=== PATIENT | male | born 1945 | race Caucasian/White ===

== ENCOUNTER 2019-04-29 19:35 | Inpatient (IN) | payer MEDICARE, OTHER ==
[~2019-04-29] VITALS: Ht 177.8 cm; Wt 75.0 kg
--- NOTE | 2019-04-29 19:40 | NUR ---
ED Nurse Note: [facility] [address] [facility]. ao1 able to follow commands; spontaneous eye opening. bp 89/65.
[2019-04-29] MEDS ORDERED: Pantoprazole Inj IV ONE (19:45)
--- NOTE | 2019-04-29 19:45 | NUR ---
ED Nurse Note: iv access established. blood and urine collected; sent down to lab.
[2019-04-29] MEDS ORDERED: MYRBETRIQ50 MG PO (19:51)
[2019-04-29] MEDS ORDERED: ACETAMINOPHEN500 M5 ORAL (19:51)
[2019-04-29] MEDS ORDERED: CALCIUM 500+D1 EACH PO (19:51)
[2019-04-29] MEDS ORDERED: VITAMIN D1000 UNI1 ORAL (19:51)
[2019-04-29] MEDS ORDERED: PROSCAR5 MG ORAL (19:51)
[2019-04-29] MEDS ORDERED: [UNRECOGNIZED DRUG - OTHER] PO (19:51)
[2019-04-29] MEDS ORDERED: ATORVASTATIN CA20 MG ORAL (19:51)
[2019-04-29] MEDS ORDERED: ASPIRIN81 MG ORAL (19:51)
[2019-04-29] MEDS ORDERED: POLYETHYLENE GL17 GM ORAL (19:53)
[2019-04-29] MEDS ORDERED: SENNOSIDES8.6 MG ORAL (19:53)
[2019-04-29] MEDS ORDERED: FLOMAX0.4 MG ORAL (19:53)
[2019-04-29] MEDS ORDERED: TUBERSOL5 TUB UNIT ID (19:53)
[2019-04-29] MEDS ORDERED: OMEPRAZOLE20 M2 ORAL (19:53)
[2019-04-29] MEDS ORDERED: Sodium Chloride 2,200 ML IVLG ONE (20:00)
--- NOTE | 2019-04-29 20:00 | NUR ---
ED Nurse Note: CRE VRE MRSA SWAB COLLECTED; SENT DOWN TO LAB. UPON INSPECTION, SKIN INTACT.
[2019-04-29 20:28] LABS: ANION GAP 9 mmol/L (5-15); BLOOD UREA NITROGEN 37 mg/dL (7-18); CALCIUM 8.4 MG/DL (8.5-10.1); CARBON DIOXIDE 29 MMOL/L (21-32); CHLORIDE 105 MMOL/L (98-107); CREATININE 1.5 MG/DL (0.55-1.30); POTASSIUM 4.6 MMOL/L (3.5-5.1); SODIUM 142 MMOL/L (136-145)
[2019-04-29 20:36] LABS: BASOPHILS % (AUTO) 0.5 % (0.0-2.0); EOSINOPHILS % (AUTO) 0.1 % (0.0-3.0); HEMATOCRIT 39.2 % (42.0-52.0); HEMOGLOBIN 12.9 G/DL (14.2-18.0); LYMPHOCYTES % (AUTO) 7.2 % (20.0-45.0); MEAN CORPUSCULAR VOLUME 82 FL (80-99); MONOCYTES % (AUTO) 9.4 % (1.0-10.0); NEUTROPHILS % (AUTO) 82.8 % (45.0-75.0); PLATELET COUNT 238 K/UL (150-450); RED BLOOD COUNT 4.78 M/UL (4.70-6.10); RED CELL DISTRIBUTION WIDTH 12.7 % (11.6-14.8); WHITE BLOOD COUNT 14.7 K/UL (4.8-10.8)
[2019-04-29 20:37] VITALS: BP 108/61
[2019-04-29 20:46] LABS: ALANINE AMINOTRANSFERASE 102 U/L (12-78); ALBUMIN 1.6 G/DL (3.4-5.0); ALBUMIN/GLOBULIN RATIO 0.4 (1.0-2.7); ALKALINE PHOSPHATASE 1628 U/L (46-116); ASPARTATE AMINO TRANSFERASE 291 U/L (15-37); BILIRUBIN,TOTAL 1.9 MG/DL (0.2-1.0)
[2019-04-29 20:47] LABS: BILIRUBIN,DIRECT 1.4 MG/DL (0.0-0.3)
[2019-04-29 20:54] VITALS: BP 104/70
--- NOTE | 2019-04-29 20:54 | NUR ---
ED Nurse Note: animal care supervisor at bedside. bp maintaining at 104/70 with 2L fluids.
--- NOTE | 2019-04-29 21:00 | NUR ---
ED Nurse Note: LACTIC REFLEX COLLECTED; SENT DOWN TO LAB
[2019-04-29] MEDS ORDERED: Morphine Sulfate 2mg/ml Inj(IV/IM USE ONLY) IVP PRN (21:15)
[2019-04-29] MEDS ORDERED: Nitroglycerin Subl 0.4mg tab SL PRN (21:15)
[2019-04-29 21:19] LABS: APPEARANCE,URINE CLEAR; BILIRUBIN, URINE 1+ (NEGATIVE); COLOR,URINE BROWN; GLUCOSE, URINE (UA) NEGATIVE (NEGATIVE); KETONES,URINE NEGATIVE (NEGATIVE); LEUKOCYTE ESTERASE ,URINE 1+ (NEGATIVE); NITRITE,URINE NEGATIVE (NEGATIVE); PH,URINE 5 (4.5-8.0); PROTEIN,URINE 1+ (NEGATIVE); UROBILINOGEN,URINE 4 MG/DL (0.0-1.0)
--- NOTE | 2019-04-29 21:22 | Emergency Room Report ---
History of Present Illness General Chief Complaint: General Complaint Source: Patient, Caregiver Present Illness HPI 74-year-old male presents ED for evaluation. Patient brought in by EMS from [facility] facility. Had 3 episodes of coffee-ground emesis today. Hypotensive as per EMS. Patient states he feels very weak. Recently discharged from the [facility] to this facility. Denies fevers or chills. Denies chest pain or shortness of breath. Denies any abdominal pain. Denies blood in stool. No other aggravating relieving factors. Denies any other associated symptoms Allergies: Coded Allergies: BENAZEPRIL (Verified Allergy, Unknown, 04/29/19) PENICILLINS (Verified Allergy, Unknown, 04/29/19) TERAZOSIN (Verified Allergy, Unknown, 04/29/19) Patient History Past Medical History: HTN Past Surgical History: none Pertinent Family History: none Social History: Denies: smoking, alcohol use, drug use Immunizations: UTD Reviewed Nursing Documentation: PMH: Agreed; PSxH: Agreed Nursing Documentation-PMH Past Medical History: No History, Except For Hx Hypertension: Yes Review of Systems All Other Systems: negative except mentioned in HPI Physical Exam Vital Signs Date Time Temp Pulse Resp B/P (MAP) Pulse Ox O2 Delivery O2 Flow Rate FiO2 04/29/19 19:30 94 17 108/61 (77) 98 Room Air Sp02 EP Interpretation: reviewed, normal General Appearance: no apparent distress, alert, GCS 15, non-toxic, lethargic, thin Head: normocephalic, atraumatic Eyes: bilateral eye normal inspection, bilateral eye PERRL ENT: hearing grossly normal, normal pharynx, no angioedema, normal voice Neck: full range of motion, supple/symm/no masses Respiratory: chest non-tender, lungs clear, normal breath sounds, speaking full sentences Cardiovascular #1: regular rate, rhythm, no edema Cardiovascular #2: 2+ carotid (R), 2+ carotid (L), 2+ radial (R), 2+ radial (L) , 2+ dorsalis pedis (R), 2+ dorsalis pedis (L) Gastrointestinal: normal bowel sounds, non tender, soft, non-distended, no guarding, no rebound Rectal: deferred Genitourinary: normal inspection, no CVA tenderness Musculoskeletal: back normal, gait/station normal, normal range of motion, non- tender Neurologic: other - lethargic Psychiatric: judgement/insight normal, memory normal, mood/affect normal, no suicidal/homicidal ideation Reflexes: 3+ bicep (R), 3+ bicep (L), 3+ tricep (R), 3+ tricep (L), 3+ knee (R) , 3+ knee (L) Skin: other - see nursing notes Lymphatic: no adenopathy Procedures Critical Care Time Critical Care Time i. I feel this is a highly complex case requiring extensive working including EKG/Rhythm strip, Xray/CT/US, Blood/urine lab work, repeat exams while in ED, and administration of strong opiates/narcotics for pain control, admission to hospital or close patient follow up. Total time: 60 min bedside evaluation and treatment excludes procedures (EKG). Reason for critical care: failure to thrive, UGIB, dehydration, hypotension, sepsis, Possible complications: hypotension, hypertension, NH, shock, arrhythmias, metabolic acidosis, end organ damage, respiratory failure. Interventions: Labs, IV fluids, EKG, chest x-ray. Blood cultures. Lactic acid. 30 cc/kg fluid bolus. Trendelenburg. Additional fluid bolusing. Neuro reevaluation. Broad-spectrum antibiotics. Course: Presenting from [facility] facility with coffee-ground emesis. Hypotension in triage. Patient appears cachectic and weak. IV fluid boluses started. There is noted leukocytosis. BUN/creatinine elevated. LFTs markedly elevated. Abdomen is soft. Lactic greater than 2. Concerning for pneumonia on chest x-ray. Has UTI. Given 30 cc/kg fluid bolus. BP slowly improving. Given additional fluids. BP improving on Trendelenburg. Patient's neuro assessment becoming improved. Given broad-spectrum antibiotics. Consultations: nursing staff, EMS, family Performed by: Dr Arechiga Tolerated well condition = critical j. because of unstable vital signs this patient had a condition that could potentially threaten life or limb. I feel this is a critical patient who required my full attention while patient was considered critical. Total Critical Care Time excluding procedures was greater than 60 minutes Medical Decision Making Diagnostic Impression: Primary Impression: UGIB (upper gastrointestinal bleed) Additional Impressions: Chronic renal insufficiency Qualified Codes: N18.9 - Chronic kidney disease, unspecified Elevated LFTs LLL pneumonia Qualified Codes: J18.1 - Lobar pneumonia, unspecified organism UTI (urinary tract infection) Qualified Codes: N39.0 - Urinary tract infection, site not specified Sepsis Qualified Codes: A41.9 - Sepsis, unspecified organism ER Course Hospital Course 74 yo M presents with coffee ground emesis, hypotension Differential diagnoses include: Pneumonia, UTI, sepsis, dehydration, UGIB Clinical course Patient placed on stretcher. On bus driver/monitor with hypotension. After initial history and physical, I ordered labs, IV fluids, EKG, chest x-ray, blood cultures, UA. Labs - BUN/Cr elevated, noted leukocytosis, troponins negative, LFTs grossly elevated, lactic 2.9, UA grossly positive for UTI EKG - NSR, no acute ischemic changes inteprreted bym e CXR - LLL infiltrate Abx given. 80 cc/kg fluid bolus. BP slowly improving with IV fluids in Trendelenburg. Patient given additional fluids. Mental status improving after IV hydration. Patient has no abdominal pain. Case discussed with Dr Duenas/Lito and they agreed to admit patient to their service for further care and support I feel this is a highly complex case requiring extensive working including EKG/ Rhythm strip, Xray/CT/US, Blood/urine lab work, repeat exams while in ED, and administration of strong opiates/narcotics for pain control, admission to hospital or close patient follow up. Diagnosis - sepsis, UGIB, renal insufficiency, elevated LFTs, left lower lobe pneumonia, UTI Patient admitted to SDU in critical condition Labs Test 04/29/19 19:45 04/29/19 19:55 04/29/19 20:45 04/29/19 21:10 Lactic Acid Level 2.90 mmol/L (0.4-2.0) White Blood Count 14.7 K/UL (4.8-10.8) Red Blood Count 4.78 M/UL (4.70-6.10) Hemoglobin 12.9 G/DL (14.2-18.0) Hematocrit 39.2 % (42.0-52.0) Mean Corpuscular Volume 82 FL (80-99) Mean Corpuscular Hemoglobin 26.9 PG (27.0-31.0) Mean Corpuscular Hemoglobin Concent 32.9 G/DL (32.0-36.0) Red Cell Distribution Width 12.7 % (11.6-14.8) Platelet Count 238 K/UL (150-450) Mean Platelet Volume 6.6 FL (6.5-10.1) Neutrophils (%) (Auto) 82.8 % (45.0-75.0) Lymphocytes (%) (Auto) 7.2 % (20.0-45.0) Monocytes (%) (Auto) 9.4 % (1.0-10.0) Eosinophils (%) (Auto) 0.1 % (0.0-3.0) Basophils (%) (Auto) 0.5 % (0.0-2.0) Prothrombin Time 10.9 SEC (9.30-11.50) Prothromb Time International Ratio 1.0 (0.9-1.1) Activated Partial Thromboplast Time 29 SEC (23-33) Sodium Level 142 MMOL/L (136-145) Potassium Level 4.6 MMOL/L (3.5-5.1) Chloride Level 105 MMOL/L (98-107) Carbon Dioxide Level 29 MMOL/L (21-32) Anion Gap 9 mmol/L (5-15) Blood Urea Nitrogen 37 mg/dL (7-18) Creatinine 1.5 MG/DL (0.55-1.30) Estimat Glomerular Filtration Rate mL/min (>60) Glucose Level 118 MG/DL (74-106) Calcium Level 8.4 MG/DL (8.5-10.1) Total Bilirubin 1.9 MG/DL (0.2-1.0) Direct Bilirubin 1.4 MG/DL (0.0-0.3) Aspartate Amino Transf (AST/SGOT) 291 U/L (15-37) Alanine Aminotransferase (ALT/SGPT) 102 U/L (12-78) Alkaline Phosphatase 1628 U/L (46-116) Troponin I 0.001 ng/mL (0.000-0.056) Total Protein 5.4 G/DL (6.4-8.2) Albumin 1.6 G/DL (3.4-5.0) Globulin 3.8 g/dL Albumin/Globulin Ratio 0.4 (1.0-2.7) Lipase 178 U/L (73-393) EKG Diagnostic Results Rate: normal Rhythm: NSR ST Segments: no acute changes ASA given to the pt in ED: No Rhythm Strip Diag. Results EP Interpretation: yes Rhythm: NSR, no PVC's, no ectopy Chest X-Ray Diagnostic Results Chest X-Ray Diagnostic Results : Chest X-Ray Ordered: Yes # of Views/Limited/Complete: 1 View Indication: Other EP Interpretation: Yes Interpretation: no pneumothorax, other - consolidation LLL Impression: Other - pneumonia Electronically Signed by: Electronically signed by Carlos Enrique Arechiga MD Last Vital Signs Date Time Temp Pulse Resp B/P (MAP) Pulse Ox O2 Delivery O2 Flow Rate FiO2 04/29/19 20:54 94 17 104/70 98 Room Air Status: improved Disposition: ADMITTED INPATIENT Condition: Critical Referrals: NON PHYSICIAN (PCP) Carlos Enrique Arechiga MD Apr 29, 2019 21:22
--- NOTE | 2019-04-29 22:00 | NUR ---
TRANSFER TO FLOOR: Patient transferred to SDU 245-2 as ordered, per GARCÍA KNOTT. Report given to ELSA LIZ. PATIENT BELONGINGS COMPLETED WITH RECEIVING RN. ACCOMPANIED BY CAREGIVER.
[2019-04-29] MEDS: D5NS 1,000 ML IV SCH (22:27)
--- NOTE | 2019-04-29 22:30 | NUR ---
NURSE NOTES: Admitted a 74year old male from ER for Upper GI bleed. Patient was accompanied by caregiver/girlfriend. Patient was alert and oriented times 3, with no complaints of pain or discomfort. Patient able to make needs known, no signs of bleeding noted, H&H stable. Admission assessment to be done. Will continue to monitor.
[2019-04-29 23:11] LABS: CREATINE KINASE 768 U/L (26-308)
[2019-04-30] MEDS ORDERED: [UNRECOGNIZED DRUG - OTHER] (03:43)
[2019-04-30] MEDS ORDERED: mesalamine (03:43)
[2019-04-30 05:20] LABS: BASOPHILS % (AUTO) 0.2 % (0.0-2.0); EOSINOPHILS % (AUTO) 0.2 % (0.0-3.0); HEMATOCRIT 41.2 % (42.0-52.0); HEMOGLOBIN 13.4 G/DL (14.2-18.0); LYMPHOCYTES % (AUTO) 7.9 % (20.0-45.0); MEAN CORPUSCULAR VOLUME 82 FL (80-99); MONOCYTES % (AUTO) 9.6 % (1.0-10.0); NEUTROPHILS % (AUTO) 82.1 % (45.0-75.0); PLATELET COUNT 265 K/UL (150-450); RED BLOOD COUNT 5.04 M/UL (4.70-6.10); RED CELL DISTRIBUTION WIDTH 13.6 % (11.6-14.8)
[2019-04-30 05:32] LABS: INR 1.2 (0.9-1.1)
[2019-04-30 06:25] LABS: ALANINE AMINOTRANSFERASE 102 U/L (12-78); ALBUMIN 1.6 G/DL (3.4-5.0); ALBUMIN/GLOBULIN RATIO 0.5 (1.0-2.7); ALKALINE PHOSPHATASE 1641 U/L (46-116); AMYLASE 36 U/L (25-115); ANION GAP 10 mmol/L (5-15); ASPARTATE AMINO TRANSFERASE 301 U/L (15-37); BILIRUBIN,TOTAL 1.8 MG/DL (0.2-1.0); BLOOD UREA NITROGEN 38 mg/dL (7-18); CALCIUM 8.2 MG/DL (8.5-10.1); CARBON DIOXIDE 26 MMOL/L (21-32); CHLORIDE 107 MMOL/L (98-107); CREATININE 1.5 MG/DL (0.55-1.30); POTASSIUM 4.9 MMOL/L (3.5-5.1); SODIUM 143 MMOL/L (136-145)
[2019-04-30 06:28] LABS: BILIRUBIN,DIRECT 1.2 MG/DL (0.0-0.3)
[2019-04-30] MEDS: D5NS 1,000 ML IV SCH ×2 (07:37→22:44)
--- NOTE | 2019-04-30 07:41 | NUR ---
HAND-OFF: Report given to ELSA Jean. Patient stable at Hand-off.
--- NOTE | 2019-04-30 07:42 | NUR ---
NURSE NOTES: Received patient in bed. Asleep. In no apparent distress. On nasal cannula at 2L. Bed in lowest position, bed alarm on. Call light within reach. [employer] cellphone and network cable installer noted at bedside. Intravenous Fluid of D5NS running at 100/ml.
[2019-04-30 08:00] VITALS: BP 130/63
[2019-04-30] MEDS ORDERED: Tamsulosin 0.4mg cap ORAL SCH (09:00)
--- NOTE | 2019-04-30 10:27 | GI Initial Consult Note ---
History of Present Illness General Date patient seen: Apr 30, 2019 Time patient seen: 10:20 Reason for Hospitalization: General Complaint Referring physician: BETINA MARIANO Present Illness HPI 74-year-old male presents ED for evaluation. Patient brought in by EMS from longterm facility. Had 3 episodes of coffee-ground emesis today. Hypotensive as per EMS. Patient states he feels very weak. Recently discharged from the [facility] to this facility. Denies fevers or chills. Denies chest pain or shortness of breath. Denies any abdominal pain. Denies blood in stool. No other aggravating relieving factors. Denies any other associated symptoms. GI consulted for reported. ROS limited, patient seen, awake alert no apparent distress no active signs symptoms of nausea vomiting. Patient is unable to provide any significant history. No reports in the emergency room or admission on floor of any episodes of coffee-ground or hematemesis. Laboratory reviewed, patient presents today with WBC of 15.0, hemoglobin of 13.4, hematocrit of 41.2 , platelet count 265, AST of 301, ALT of 102, alkaline phosphatase of 1641, total bilirubin 1.8, lipase of 203. Unknown history of endoscopic or colonoscopy. Home Meds Reported Medications [mesalamine] No Conflict Check 04/30/19 [mesal] No Conflict Check 04/30/19 Tuberculin,Purif.prot.deriv. (TUBERSOL) 5 Tub Unit/0.1 Ml Vial, 5 TUB ID, VIAL 04/29/19 Tamsulosin HCl (Flomax) 0.4 Mg Cap.er.24h, 0.4 MG ORAL DAILY, CAP 04/29/19 Sennosides* (SENNOSIDES*) 8.6 Mg Tablet, 8.6 MG ORAL DAILY, TAB 04/29/19 Polyethylene Glycol 3350* (POLYETHYLENE GLYCOL 3350*) 17 Gm Powd.pack, 17 GM ORAL BEDTIME PRN for Constipation, PACKET 04/29/19 Omeprazole (OMEPRAZOLE) 20 Mg Capsule.dr, 20 MG ORAL DAILY, CAP 04/29/19 Multivit-Min/Ferrous Sulfate (Multilex Tablet) 15 Mg Tablet, 15 MG PO, TAB 04/29/19 Mirabegron (MYRBETRIQ) 50 Mg Tab.er.24h, 50 MG PO, TAB 04/29/19 Finasteride* (PROSCAR*) 5 Mg Tablet, 5 MG ORAL DAILY, #30 TAB 0 Refills 04/29/19 Cholecalciferol (Vitamin D3)* (VITAMIN D*) 1,000 Unit Tablet, 2000 UNITS ORAL DAILY, #30 TAB 0 Refills 04/29/19 Calcium Carbonate/Vitamin D3 (CALCIUM 500+D TABLET CHEW) 1 Each Tab.chew, 1 EACH PO, TAB 04/29/19 Atorvastatin Calcium* (ATORVASTATIN CALCIUM*) 20 Mg Tablet, 20 MG ORAL BEDTIME, TAB 04/29/19 Aspirin* (ASPIRIN*) 81 Mg Tab.chew, 81 MG ORAL DAILY, TAB 04/29/19 Acetaminophen (Acetaminophen) 500 Mg Tablet, 500 MG ORAL Q4H for PAIN, TAB 04/29/19 Med list reviewed/reconciled: Yes Allergies: Coded Allergies: BENAZEPRIL (Verified Allergy, Unknown, 04/29/19) PENICILLINS (Verified Allergy, Unknown, 04/29/19) TERAZOSIN (Verified Allergy, Unknown, 04/29/19) Patient History Limited by: medical condition History Provided By: Medical Record PMH Narrative Past Medical History: HTN Past Surgical History: none Pertinent Family History: none Social History: Denies: smoking, alcohol use, drug use Immunizations: UTD Reviewed Nursing Documentation: PMH: Agreed; PSxH: Agreed Nursing Documentation-PMH Past Medical History: No History, Except For Hx Hypertension: Yes Review of Systems All Other Systems: negative except mentioned in HPI Physical Exam Vital Signs Date Time Temp Pulse Resp B/P (MAP) Pulse Ox O2 Delivery O2 Flow Rate FiO2 04/29/19 19:30 94 17 108/61 (77) 98 Room Air 04/29/19 22:11 98.5 04/29/19 22:29 2.0 Sp02 EP Interpretation: reviewed, normal Labs Laboratory Tests Test 04/29/19 19:45 04/29/19 19:55 04/29/19 20:00 04/29/19 20:45 Lactic Acid Level 2.90 mmol/L (0.4-2.0) H White Blood Count 14.7 K/UL (4.8-10.8) H Red Blood Count 4.78 M/UL (4.70-6.10) Hemoglobin 12.9 G/DL (14.2-18.0) L Hematocrit 39.2 % (42.0-52.0) L Mean Corpuscular Volume 82 FL (80-99) Mean Corpuscular Hemoglobin 26.9 PG (27.0-31.0) L Mean Corpuscular Hemoglobin Concent 32.9 G/DL (32.0-36.0) Red Cell Distribution Width 12.7 % (11.6-14.8) Platelet Count 238 K/UL (150-450) Mean Platelet Volume 6.6 FL (6.5-10.1) Neutrophils (%) (Auto) 82.8 % (45.0-75.0) H Lymphocytes (%) (Auto) 7.2 % (20.0-45.0) L Monocytes (%) (Auto) 9.4 % (1.0-10.0) Eosinophils (%) (Auto) 0.1 % (0.0-3.0) Basophils (%) (Auto) 0.5 % (0.0-2.0) Prothrombin Time 10.9 SEC (9.30-11.50) Prothromb Time International Ratio 1.0 (0.9-1.1) Activated Partial Thromboplast Time 29 SEC (23-33) Sodium Level 142 MMOL/L (136-145) Potassium Level 4.6 MMOL/L (3.5-5.1) Chloride Level 105 MMOL/L (98-107) Carbon Dioxide Level 29 MMOL/L (21-32) Anion Gap 9 mmol/L (5-15) Blood Urea Nitrogen 37 mg/dL (7-18) H Creatinine 1.5 MG/DL (0.55-1.30) H Estimat Glomerular Filtration Rate mL/min (>60) Glucose Level 118 MG/DL (74-106) H Uric Acid 8.7 MG/DL (2.6-7.2) H Calcium Level 8.4 MG/DL (8.5-10.1) L Total Bilirubin 1.9 MG/DL (0.2-1.0) H Direct Bilirubin 1.4 MG/DL (0.0-0.3) H Aspartate Amino Transf (AST/SGOT) 291 U/L (15-37) H Alanine Aminotransferase (ALT/SGPT) 102 U/L (12-78) H Alkaline Phosphatase 1628 U/L (46-116) H Total Creatine Kinase 768 U/L (26-308) H Troponin I 0.001 ng/mL (0.000-0.056) Total Protein 5.4 G/DL (6.4-8.2) L Albumin 1.6 G/DL (3.4-5.0) L Globulin 3.8 g/dL Albumin/Globulin Ratio 0.4 (1.0-2.7) L Lipase 178 U/L (73-393) Urine Eosinophils None seen (NONE SEEN) Urine Osmolality 613 mOsm/kg (429-449) H Urine Random Creatinine Pending Urine Random Microalbumin Pending Urine Random Sodium < 20 mmol/L (20-110) L Urine Microalbumin/Creatinine Ratio Pending Urine Color Brown Urine Appearance Clear Urine pH 5 (4.5-8.0) Urine Specific [place] 1.015 (1.005-1.035) Urine Protein 1+ (NEGATIVE) H Urine Glucose (UA) Negative (NEGATIVE) Urine Ketones Negative (NEGATIVE) Urine Blood Negative (NEGATIVE) Urine Nitrite Negative (NEGATIVE) Urine Bilirubin 1+ (NEGATIVE) H Urine Ictotest Positive (NEGATIVE) Urine Urobilinogen 4 MG/DL (0.0-1.0) H Urine Leukocyte Esterase 1+ (NEGATIVE) H Urine RBC 2-4 /HPF (0 - 0) H Urine WBC 5-10 /HPF (0 - 0) H Urine Squamous Epithelial Cells None /LPF (NONE/OCC) Urine Amorphous Sediment Few /LPF (NONE) H Urine Bacteria Moderate /HPF (NONE) H Test 04/29/19 21:10 04/30/19 03:10 04/30/19 09:10 Lactic Acid Level 2.40 mmol/L (0.66-2.22) H 1.70 mmol/L (0.4-2.0) White Blood Count 15.0 K/UL (4.8-10.8) H Red Blood Count 5.04 M/UL (4.70-6.10) Hemoglobin 13.4 G/DL (14.2-18.0) L Hematocrit 41.2 % (42.0-52.0) L Mean Corpuscular Volume 82 FL (80-99) Mean Corpuscular Hemoglobin 26.6 PG (27.0-31.0) L Mean Corpuscular Hemoglobin Concent 32.5 G/DL (32.0-36.0) Red Cell Distribution Width 13.6 % (11.6-14.8) Platelet Count 265 K/UL (150-450) Mean Platelet Volume 6.1 FL (6.5-10.1) L Neutrophils (%) (Auto) 82.1 % (45.0-75.0) H Lymphocytes (%) (Auto) 7.9 % (20.0-45.0) L Monocytes (%) (Auto) 9.6 % (1.0-10.0) Eosinophils (%) (Auto) 0.2 % (0.0-3.0) Basophils (%) (Auto) 0.2 % (0.0-2.0) Prothrombin Time 13.1 SEC (9.30-11.50) H Prothromb Time International Ratio 1.2 (0.9-1.1) H Activated Partial Thromboplast Time 37 SEC (23-33) H Sodium Level 143 MMOL/L (136-145) Potassium Level 4.9 MMOL/L (3.5-5.1) Chloride Level 107 MMOL/L (98-107) Carbon Dioxide Level 26 MMOL/L (21-32) Anion Gap 10 mmol/L (5-15) Blood Urea Nitrogen 38 mg/dL (7-18) H Creatinine 1.5 MG/DL (0.55-1.30) H Estimat Glomerular Filtration Rate mL/min (>60) Glucose Level 118 MG/DL (74-106) H Calcium Level 8.2 MG/DL (8.5-10.1) L Total Bilirubin 1.8 MG/DL (0.2-1.0) H Direct Bilirubin 1.2 MG/DL (0.0-0.3) H Aspartate Amino Transf (AST/SGOT) 301 U/L (15-37) H Alanine Aminotransferase (ALT/SGPT) 102 U/L (12-78) H Alkaline Phosphatase 1641 U/L (46-116) H Total Protein 4.9 G/DL (6.4-8.2) L Albumin 1.6 G/DL (3.4-5.0) L Globulin 3.3 g/dL Albumin/Globulin Ratio 0.5 (1.0-2.7) L Amylase Level 36 U/L (25-115) Lipase 203 U/L (73-393) General Appearance: no apparent distress Head: normocephalic EENT: PERRL/EOMI, normal ENT inspection Neck: supple Respiratory: normal breath sounds, no respiratory distress Cardiovascular: normal rate Gastrointestinal: normal inspection, non tender, soft, normal bowel sounds, non -distended Rectal: deferred Genitourinary: deferred Musculoskeletal: normal inspection, back normal Neurologic: alert, responsive Skin: normal inspection, normal color, no rash, warm/dry, palpation normal, well hydrated Lymphatic: normal inspection, no adenopathy Current Medications Current Medications Medications (Trade) Dose Ordered Sig/Eric Route PRN Reason Start Time Stop Time Status Last Admin Dose Admin Acetaminophen (Tylenol) 650 mg Q4H PRN ORAL fever 04/29/19 21:15 05/29/19 21:14 Dextrose (Dextrose 50%) 25 ml Q30M PRN IV Hypoglycemia 04/29/19 21:15 05/29/19 21:14 Dextrose (Dextrose 50%) 50 ml Q30M PRN IV Hypoglycemia 04/29/19 21:15 05/29/19 21:14 Dextrose/Sodium Chloride 1,000 ml @ 100 mls/hr Q10H IV 04/29/19 22:00 05/29/19 21:59 04/30/19 07:37 Diphenhydramine HCl (Benadryl) 25 mg Q6H PRN ORAL Itching/Pruritis 04/29/19 21:15 05/29/19 21:14 04/30/19 00:48 Finasteride (Proscar) 5 mg DAILY ORAL 04/30/19 09:00 05/30/19 08:59 04/30/19 08:29 Morphine Sulfate (Morphine Sulfate) 2 mg Q4H PRN IVP severe Pain (Pain Scale 7-10) 04/29/19 21:15 05/06/19 21:14 Nitroglycerin (Ntg) 0.4 mg Q5M X 3 DOSES PRN SL Prn Chest Pain 04/29/19 21:15 05/29/19 21:14 Ondansetron HCl (Zofran) 4 mg Q6H PRN IVP Nausea & Vomiting 04/29/19 21:15 05/29/19 21:14 Tamsulosin HCl (Flomax) 0.4 mg DAILY ORAL 04/30/19 09:00 05/30/19 08:59 04/30/19 08:29 Temazepam (Restoril) 15 mg HSPRN PRN ORAL Insomnia 04/29/19 21:15 05/06/19 21:14 04/30/19 00:48 GI: Plan Problems: (1) Coffee ground emesis (2) UGIB (upper gastrointestinal bleed) (3) Elevated LFTs Plan This is a 74-year-old male patient that presented with reported multiple episodes of coffee-ground emesis. Plan for upper endoscopy tomorrow to evaluate. Given elevated LFTs, will obtain MRCP and abdominal ultrasound. We will start the patient on Protonix 40 mg twice daily Monitor hematocrit hemoglobin and hematocrit, PRN transfusions Okay for clear liquid diet after imaging studies, n.p.o. at midnight Hold all blood thinners tonight IV and p.o. hydration We will follow with additional recommendations postprocedure Discussed with Dr. Olsen. Thank you for this patient referral, we will follow. The patient was seen and examined at bedside and all new and available data was reviewed in the patients chart. I agree with the above findings, impression and plan. (Patient seen earlier today. Signature stamp does not reflect patient encounter time.). - MD Luciana Moore,[facility] [employer] Apr 30, 2019 10:27
--- NOTE | 2019-04-30 10:41 | Diagnostic Imaging Report ---
Indication: Cough Comparison: None A single view chest radiograph was obtained. Findings: There is infiltrate versus atelectasis at the left lung base. Lung volumes are slightly low. Heart size is normal. Aorta is ectatic. Bones are osteopenic. IMPRESSION: Infiltrate versus atelectasis left lung base. Correlate clinically
--- NOTE | 2019-04-30 10:55 | Consultation ---
History of Present Illness General Date patient seen: Apr 30, 2019 Chief Complaint: General Complaint Referring physician: BETINA MARIANO Present Illness HPI 74 year old male with hx of Normal pressure hydrocephalus, BPH, HTN, intermediate resident was transferred by 911 with CC of dark emesis. Pt is admitted to [facility] for further evaluation. Allergies: Coded Allergies: BENAZEPRIL (Verified Allergy, Unknown, 04/29/19) PENICILLINS (Verified Allergy, Unknown, 04/29/19) TERAZOSIN (Verified Allergy, Unknown, 04/29/19) Medication History Scheduled Acetaminophen (Acetaminophen), 500 MG ORAL Q4H, (Reported) Aspirin* (Aspirin*), 81 MG ORAL DAILY, (Reported) Atorvastatin Calcium* (Atorvastatin Calcium*), 20 MG ORAL BEDTIME, (Reported) Cholecalciferol (Vitamin D3)* (Vitamin D*), 2,000 UNITS ORAL DAILY, (Reported) Finasteride* (Proscar*), 5 MG ORAL DAILY, (Reported) Omeprazole (Omeprazole), 20 MG ORAL DAILY, (Reported) Sennosides* (Sennosides*), 8.6 MG ORAL DAILY, (Reported) Tamsulosin HCl (Flomax), 0.4 MG ORAL DAILY, (Reported) Scheduled PRN Polyethylene Glycol 3350* (Polyethylene Glycol 3350*), 17 GM ORAL BEDTIME PRN for Constipation, (Reported) Miscellaneous Medications Calcium Carbonate/Vitamin D3 (Calcium 500+D Tablet Chew), 1 EACH PO, (Reported) Mirabegron (Myrbetriq), 50 MG PO, (Reported) Multivit-Min/Ferrous Sulfate (Multilex Tablet), 15 MG PO, (Reported) Tuberculin,Purif.prot.deriv. (Tubersol), 5 TUB ID, (Reported) [mesal], (Reported) [mesalamine], (Reported) Patient History Healthcare decision maker Nithin Sands Resuscitation status Full Code Advanced Directive on File No Past Medical/Surgical History Past Medical/Surgical History: (1) Benign prostatic hyperplasia (2) Chronic renal insufficiency (3) History of hypertension (4) Normal pressure hydrocephalus Review of Systems All Other Systems: negative except mentioned in HPI Physical Exam General Appearance: WD/WN, no apparent distress Lines, tubes and drains: peripheral HEENT: normocephalic, atraumatic Neck: non-tender, normal alignment Respiratory/Chest: chest wall non-tender, normal breath sounds Cardiovascular/Chest: normal peripheral pulses, normal rate Abdomen: normal bowel sounds, non tender, no organomegaly Genitourinary/Rectal: normal rectal exam Extremities: normal range of motion Skin Exam: normal pigmentation Last 24 Hour Vital Signs Date Time Temp Pulse Resp B/P (MAP) Pulse Ox O2 Delivery O2 Flow Rate FiO2 04/30/19 08:12 94 04/30/19 08:00 98.1 94 16 130/63 (85) 98 04/30/19 04:00 2.0 04/30/19 04:00 85 04/30/19 00:00 2.0 04/30/19 00:00 101 04/29/19 22:45 101 04/29/19 22:29 Nasal Cannula 2.0 04/29/19 22:11 98.5 94 17 122/68 98 Room Air 04/29/19 20:54 94 17 104/70 98 Room Air 04/29/19 20:37 94 17 Room Air 04/29/19 20:37 94 17 108/61 98 Room Air 04/29/19 19:30 94 17 108/61 (77) 98 Room Air Intake and Output 04/29/19 04/30/19 18:59 06:59 Intake Total 800 ml Balance 800 ml Intake IV Total 800 ml # Voids 1 # Bowel Movements 1 Laboratory Tests Test 04/29/19 19:45 04/29/19 19:55 04/29/19 20:00 04/29/19 20:45 Lactic Acid Level 2.90 mmol/L (0.4-2.0) H White Blood Count 14.7 K/UL (4.8-10.8) H Red Blood Count 4.78 M/UL (4.70-6.10) Hemoglobin 12.9 G/DL (14.2-18.0) L Hematocrit 39.2 % (42.0-52.0) L Mean Corpuscular Volume 82 FL (80-99) Mean Corpuscular Hemoglobin 26.9 PG (27.0-31.0) L Mean Corpuscular Hemoglobin Concent 32.9 G/DL (32.0-36.0) Red Cell Distribution Width 12.7 % (11.6-14.8) Platelet Count 238 K/UL (150-450) Mean Platelet Volume 6.6 FL (6.5-10.1) Neutrophils (%) (Auto) 82.8 % (45.0-75.0) H Lymphocytes (%) (Auto) 7.2 % (20.0-45.0) L Monocytes (%) (Auto) 9.4 % (1.0-10.0) Eosinophils (%) (Auto) 0.1 % (0.0-3.0) Basophils (%) (Auto) 0.5 % (0.0-2.0) Prothrombin Time 10.9 SEC (9.30-11.50) Prothromb Time International Ratio 1.0 (0.9-1.1) Activated Partial Thromboplast Time 29 SEC (23-33) Sodium Level 142 MMOL/L (136-145) Potassium Level 4.6 MMOL/L (3.5-5.1) Chloride Level 105 MMOL/L (98-107) Carbon Dioxide Level 29 MMOL/L (21-32) Anion Gap 9 mmol/L (5-15) Blood Urea Nitrogen 37 mg/dL (7-18) H Creatinine 1.5 MG/DL (0.55-1.30) H Estimat Glomerular Filtration Rate mL/min (>60) Glucose Level 118 MG/DL (74-106) H Uric Acid 8.7 MG/DL (2.6-7.2) H Calcium Level 8.4 MG/DL (8.5-10.1) L Total Bilirubin 1.9 MG/DL (0.2-1.0) H Direct Bilirubin 1.4 MG/DL (0.0-0.3) H Aspartate Amino Transf (AST/SGOT) 291 U/L (15-37) H Alanine Aminotransferase (ALT/SGPT) 102 U/L (12-78) H Alkaline Phosphatase 1628 U/L (46-116) H Total Creatine Kinase 768 U/L (26-308) H Troponin I 0.001 ng/mL (0.000-0.056) Total Protein 5.4 G/DL (6.4-8.2) L Albumin 1.6 G/DL (3.4-5.0) L Globulin 3.8 g/dL Albumin/Globulin Ratio 0.4 (1.0-2.7) L Lipase 178 U/L (73-393) Urine Eosinophils None seen (NONE SEEN) Urine Osmolality 613 mOsm/kg (429-449) H Urine Random Creatinine Pending Urine Random Microalbumin Pending Urine Random Sodium < 20 mmol/L (20-110) L Urine Microalbumin/Creatinine Ratio Pending Urine Color Brown Urine Appearance Clear Urine pH 5 (4.5-8.0) Urine Specific Souris 1.015 (1.005-1.035) Urine Protein 1+ (NEGATIVE) H Urine Glucose (UA) Negative (NEGATIVE) Urine Ketones Negative (NEGATIVE) Urine Blood Negative (NEGATIVE) Urine Nitrite Negative (NEGATIVE) Urine Bilirubin 1+ (NEGATIVE) H Urine Ictotest Positive (NEGATIVE) Urine Urobilinogen 4 MG/DL (0.0-1.0) H Urine Leukocyte Esterase 1+ (NEGATIVE) H Urine RBC 2-4 /HPF (0 - 0) H Urine WBC 5-10 /HPF (0 - 0) H Urine Squamous Epithelial Cells None /LPF (NONE/OCC) Urine Amorphous Sediment Few /LPF (NONE) H Urine Bacteria Moderate /HPF (NONE) H Test 04/29/19 21:10 04/30/19 03:10 04/30/19 09:10 Lactic Acid Level 2.40 mmol/L (0.66-2.22) H 1.70 mmol/L (0.4-2.0) White Blood Count 15.0 K/UL (4.8-10.8) H Red Blood Count 5.04 M/UL (4.70-6.10) Hemoglobin 13.4 G/DL (14.2-18.0) L Hematocrit 41.2 % (42.0-52.0) L Mean Corpuscular Volume 82 FL (80-99) Mean Corpuscular Hemoglobin 26.6 PG (27.0-31.0) L Mean Corpuscular Hemoglobin Concent 32.5 G/DL (32.0-36.0) Red Cell Distribution Width 13.6 % (11.6-14.8) Platelet Count 265 K/UL (150-450) Mean Platelet Volume 6.1 FL (6.5-10.1) L Neutrophils (%) (Auto) 82.1 % (45.0-75.0) H Lymphocytes (%) (Auto) 7.9 % (20.0-45.0) L Monocytes (%) (Auto) 9.6 % (1.0-10.0) Eosinophils (%) (Auto) 0.2 % (0.0-3.0) Basophils (%) (Auto) 0.2 % (0.0-2.0) Prothrombin Time 13.1 SEC (9.30-11.50) H Prothromb Time International Ratio 1.2 (0.9-1.1) H Activated Partial Thromboplast Time 37 SEC (23-33) H Sodium Level 143 MMOL/L (136-145) Potassium Level 4.9 MMOL/L (3.5-5.1) Chloride Level 107 MMOL/L (98-107) Carbon Dioxide Level 26 MMOL/L (21-32) Anion Gap 10 mmol/L (5-15) Blood Urea Nitrogen 38 mg/dL (7-18) H Creatinine 1.5 MG/DL (0.55-1.30) H Estimat Glomerular Filtration Rate mL/min (>60) Glucose Level 118 MG/DL (74-106) H Calcium Level 8.2 MG/DL (8.5-10.1) L Total Bilirubin 1.8 MG/DL (0.2-1.0) H Direct Bilirubin 1.2 MG/DL (0.0-0.3) H Aspartate Amino Transf (AST/SGOT) 301 U/L (15-37) H Alanine Aminotransferase (ALT/SGPT) 102 U/L (12-78) H Alkaline Phosphatase 1641 U/L (46-116) H Total Protein 4.9 G/DL (6.4-8.2) L Albumin 1.6 G/DL (3.4-5.0) L Globulin 3.3 g/dL Albumin/Globulin Ratio 0.5 (1.0-2.7) L Amylase Level 36 U/L (25-115) Lipase 203 U/L (73-393) Microbiology Date/Time Source Procedure Growth Status 04/29/19 19:45 Rectum Received Height (Feet): 5 Height (Inches): 9.00 Weight (Pounds): 136 Medications Current Medications Medications (Trade) Dose Ordered Sig/Eric Route PRN Reason Start Time Stop Time Status Last Admin Dose Admin Acetaminophen (Tylenol) 650 mg Q4H PRN ORAL fever 04/29/19 21:15 05/29/19 21:14 Dextrose (Dextrose 50%) 25 ml Q30M PRN IV Hypoglycemia 04/29/19 21:15 05/29/19 21:14 Dextrose (Dextrose 50%) 50 ml Q30M PRN IV Hypoglycemia 04/29/19 21:15 05/29/19 21:14 Dextrose/Sodium Chloride 1,000 ml @ 100 mls/hr Q10H IV 04/29/19 22:00 05/29/19 21:59 04/30/19 07:37 Diphenhydramine HCl (Benadryl) 25 mg Q6H PRN ORAL Itching/Pruritis 04/29/19 21:15 05/29/19 21:14 04/30/19 00:48 Finasteride (Proscar) 5 mg DAILY ORAL 04/30/19 09:00 05/30/19 08:59 04/30/19 08:29 Morphine Sulfate (Morphine Sulfate) 2 mg Q4H PRN IVP severe Pain (Pain Scale 7-10) 04/29/19 21:15 05/06/19 21:14 Nitroglycerin (Ntg) 0.4 mg Q5M X 3 DOSES PRN SL Prn Chest Pain 04/29/19 21:15 05/29/19 21:14 Ondansetron HCl (Zofran) 4 mg Q6H PRN IVP Nausea & Vomiting 04/29/19 21:15 05/29/19 21:14 Pantoprazole (Protonix) 40 mg EVERY 12 HOURS IVP 04/30/19 21:00 05/30/19 20:59 Tamsulosin HCl (Flomax) 0.4 mg DAILY ORAL 04/30/19 09:00 05/30/19 08:59 04/30/19 08:29 Temazepam (Restoril) 15 mg HSPRN PRN ORAL Insomnia 04/29/19 21:15 05/06/19 21:14 04/30/19 00:48 Assessment/Plan Problem List: (1) LLL pneumonia ICD Codes: J18.1 - Lobar pneumonia, unspecified organism SNOMED: 828337346 (2) UGIB (upper gastrointestinal bleed) ICD Codes: K92.2 - Gastrointestinal hemorrhage, unspecified SNOMED: 11394135 (3) At high risk for aspiration ICD Codes: Z91.89 - Other specified personal risk factors, not elsewhere classified SNOMED: 139049695 (4) Benign prostatic hyperplasia ICD Codes: N40.0 - Benign prostatic hyperplasia without lower urinary tract symptoms SNOMED: 951845003 (5) Chronic renal insufficiency ICD Codes: N18.9 - Chronic kidney disease, unspecified SNOMED: 790446432 Qualifiers: Qualified Codes: N18.9 - Chronic kidney disease, unspecified (6) History of hypertension ICD Codes: Z86.79 - Personal history of other diseases of the circulatory system SNOMED: 030869201 (7) CVA (cerebrovascular accident) ICD Codes: I63.9 - Cerebral infarction, unspecified SNOMED: 938415365 (8) Normal pressure hydrocephalus ICD Codes: G91.2 - (Idiopathic) normal pressure hydrocephalus SNOMED: 64590778 (9) Elevated LFTs ICD Codes: R94.5 - Abnormal results of liver function studies SNOMED: 190414338, 462941804 Assessment/Plan: NPO iv fluids check electrolytes check sputum IV abx, ID evaluation GI evaluation dvt prophylaxis. Octavia Morse MD Apr 30, 2019 10:55
[2019-04-30] MEDS ORDERED: D5NS 1,000 ML IV SCH (11:00)
[2019-04-30] MEDS ORDERED: cefTRIAXone 1 GM in D5W 55 ML IVPB SCH (11:00)
[2019-04-30] MEDS ORDERED: Promethazine/Codeine 5ml UD ORAL PRN ×2 (11:00→23:00)
--- NOTE | 2019-04-30 11:48 | NUR ---
RD ASSESSMENT & RECOMMENDATIONS SEE CARE ACTIVITY FOR COMPLETE ASSESSMENT DAILY ESTIMATED NEEDS: Needs based on Cardiac 68.8kg 25-30 kcals/kg 9268-7631 total kcals 1-1.2 g protein/kg 69-83 g total protein 25-30 mL/kg 6587-7057 total fluid mLs NUTRITION DIAGNOSIS: Altered GI fxn related GIB as evidenced by pt adm w/ coffee ground emesis, EGD pending, NPO at this time. CURRENT DIET: NPO PO DIET RECOMMENDATIONS: LOW NA/ soft diet (texture per PHYSICIAN NEONATOLOGY) ADDITIONAL RECOMMENDATIONS: 1) PHYSICIAN NEONATOLOGY eval / pt is 1:1 feeder 2) Add Ensure Enlive BID in b/w meals 3) Weekly weights- pt adm w/ reported wt loss and progressive weakness 4) Monitor renal labs/ need for dietary restrictions. 5) Wound care eval for sacral wound photo
[2019-04-30 12:00] VITALS: BP 93/55
--- NOTE | 2019-04-30 12:20 | NUR ---
NURSE NOTES: DAVID Marquez at bedside. He explained Gi procedure ordered by Dr. Suarez. Patient's gf at bedside. Patient verbalize understanding of the procedure, and he'll sign the consent.
--- NOTE | 2019-04-30 12:40 | NUR ---
NURSE NOTES: Patient signed consent for GI procedure ordered by .
--- NOTE | 2019-04-30 13:40 | NUR ---
HAND-OFF: Report given to ELSA AHUJA.
--- NOTE | 2019-04-30 13:45 | NUR ---
NURSE NOTES: RECEIVED BED SIDE REPORT .REC,D PT RESTING IN BED QUIETLY ,AWAKE AND ALERT ,DENIES CP.PT RECEIVING O2 @ 2L /MINTS VIA N/C O2 SAT 94%.PT GIRLFRIEND AT BED SIDE,SHE SEEMS VERY SUPPORTIVE.PT RECEIVING IVF,S D5NS @ 75CC/HRS INFUSING WELL CONNECTED TO H.L ON RT AC .PT IV SITE INTACT.PT REPOSITIONED IN BED ,MADE COMFORTABLE POSSIBLE.NO ACUTE DISTRESS NOTED AT THIS .WILL CONT TO MONITOR.
[2019-04-30 14:30] VITALS: BP 93/61
--- NOTE | 2019-04-30 14:58 | NUR ---
NURSE NOTES:WOUND CARE NOTES:Pt presented on admission with partial thickness pressure injury sacrococcygeal area(L)2.5cm x (W)1cm. Non-blanching erythema without induration periwound.Scrotum is red. Both heels are firm and blanchable . No other skin concerns noted. Tx.Plan: Apply Moisture Barrier paste to sacrum. Cover with Optifoam drsg. Change every 3 days and prn. Apply Cavilon Skin Barrier to both heels. Cover each heel with Optifoam drsg. Change every 7 days and prn. Reposition at least every 2hours or as tolerated. Off-load heels with pillow
--- NOTE | 2019-04-30 15:04 | NUR ---
SWALLOW/SPEECH THERAPY NOTE: REFERRED FOR SWALLOW EVAL BY DR BEJARANO. PER RN, PATIENT COUGHS WITH THIN AND THICKENED LIQUIDS (NECTAR) AND NEEDS TO BE ON CLEAR LIQUIDS ONLY. PER GI [facility] PAVING SUPERINTENDENT TAMMIE, PT LIKELY WILL NOT HAVE EGD UNTIL TOMORROW. HE APPROVED MOD BARIUM SWALLOW STUDY FOR PATIENT TOMORROW PRIOR TO EGD FOR NOW. PLAN: KEEP PT NPO UNTIL MOD BARIUM SWALLOW STUDY TOMORROW. D/W ELSA ANTUNEZ (ANAYELI NOT AVAILABLE).
[2019-04-30] MEDS ORDERED: Varibar Pudding 230ml MC PRN (15:15)
[2019-04-30] MEDS ORDERED: Varibar Honey 250ml MC PRN ×2 (15:15→22:00)
[2019-04-30] MEDS ORDERED: Varibar Nectar 240ml MC PRN (15:15)
[2019-04-30 15:44] VITALS: BP 98/58
--- NOTE | 2019-04-30 16:11 | Diagnostic Imaging Report ---
Indication:Elevated Bun and Creatinine. Technique: Grayscale and duplex Doppler imaging of the kidneys performed. Comparison: None Findings: The size, contour, and echogenicity of both kidneys are within normal limits. There are multiple cysts of varying size within both kidneys. There is no hydronephrosis.. The right kidney measures 11.3 cm. in length. The left kidney measures 9.4 cm. in length. The IVC is patent. Urinary bladder is unremarkable. IMPRESSION: Negative ultrasound the kidneys. Bilateral renal cysts
--- NOTE | 2019-04-30 16:50 | NUR ---
NURSE NOTES:PT LEFT THE UNIT VIA GURNEY ON STABLE CONDITION TO MRI DPT PER M.D ORDERS.PT ESCORTED BY [facility] STAFF.
--- NOTE | 2019-04-30 16:52 | Diagnostic Imaging Report ---
Indication: Abdominal pain Technique: Grayscale and duplex Doppler imaging of the abdomen performed. Comparison: None Findings: The liver is heterogeneous with suggestion of multiple nodular lesions. Infiltrative disease especially metastatic neoplasm should be considered. Further evaluation with contrast-enhanced CT of the abdomen is recommended. There is also moderate nodularity of the liver. Not certain if this is due to chronic disease i.e. cirrhosis or whether this is on the basis of the lesions described. There is a trace amount of ascites. Gallbladder sludge is present. Multiple cysts present within both kidneys. There is no hydronephrosis. Portal vein is patent. Spleen is normal in size in the upper limits of normal. CBD is 4.7 mm. Pancreas is unremarkable. IMPRESSION: Abnormal liver with the multiple echogenic foci. Infiltrative disease or new metastatic neoplasm should be considered. Contrast-enhanced CT recommended. Trace ascites Multiple bilateral renal cysts.
--- NOTE | 2019-04-30 18:25 | NUR ---
NURSE NOTES:PT CAME BACK TO HIS ROOM AWAKE AND ALERT DENIES PAIN OR ANY DISCOMFORT AT THIS TIME .PT TOLERATED WELL MRI PROCEDURE. WILL CONT TO MONITOR.
--- NOTE | 2019-04-30 19:20 | NUR ---
HAND-OFF: Report given to .JT HUNTER.
--- NOTE | 2019-04-30 19:21 | NUR ---
NURSE NOTES: Received patient from Harvey HUNTER. Family at bedside. Patient is awake and oriented x3. Receiving oxygen via nasal cannula at 2L/min, patient O2 Sat at 98%. IV site is right AC 18g receiving D5NS @ 75cc/hr, other IV site is left AC 18g patent and asymptomatic. Bed is locked, placed in lowest position, head of bed elevated, side rails up x3, call light within reach, bed alarm on. Will continue to monitor.
--- NOTE | 2019-04-30 19:50 | History & Physical ---
History and Physical History & Physicial Dictated for Int Med-Dr Duenas no. [id number]. Betito Naylor MD Apr 30, 2019 19:50
[2019-04-30 20:00] VITALS: BP 96/66
--- NOTE | 2019-04-30 20:34 | NUR ---
NURSE NOTES: Upon entering patients room, Left AC IV site was removed and found on the bed. Patient is confused. Will continue to monitor.
[2019-04-30] MEDS ORDERED: Pantoprazole Inj IVP SCH (21:00)
--- NOTE | 2019-04-30 21:30 | History and Physical Report ---
DATE OF ADMISSION: 04/29/2019 CHIEF COMPLAINT: The patient is a 74-year-old male presents with chief complaint of coffee-ground emesis. HISTORY OF PRESENT ILLNESS: The patient is a resident of [facility]. According to staff at [facility], the patient had three episodes of coffee-ground emesis on April 29, 2019. EMS was called. The patient was found to be hypotensive. The patient was transferred to [place] emergency room. The patient was admitted for upper gastrointestinal hemorrhage and hypotension to rule out hypovolemic shock. REVIEW OF SYSTEMS: Unable to assess secondary to the patient's mental status. PAST MEDICAL HISTORY: Significant for: 1. Gastroesophageal reflux disease. 2. Hypercholesterolemia. 3. Hypertension. 4. Benign prostatic hypertrophy. PAST SURGICAL HISTORY: The patient denies. CURRENT MEDICATIONS: 1. Tamsulosin 0.4 mg p.o. daily. 2. MiraLAX 17 g p.o. at bedtime. 3. Omeprazole 20 mg p.o. daily. 4. Multivitamin p.o. daily. 5. Myrbetriq 50 mg p.o. daily. 6. Finasteride 5 mg p.o. daily. 7. Calcium carbonate/vitamin D one tablet p.o. daily. 8. Atorvastatin 20 mg p.o. daily. 9. Aspirin 81 mg p.o. daily. ALLERGIES: 1. Benazepril. 2. Penicillin. 3. Terazosin. SOCIAL HISTORY: The patient is resident of [facility]. The patient denies tobacco or alcohol use. PHYSICAL EXAMINATION: VITAL SIGNS: Temperature 98.1, respirations 18, pulse 90, blood pressure 93/55. GENERAL: The patient is well-developed and well-nourished, thin-appearing white male, in no apparent distress. HEENT: Eyes, pupils are equal and responsive to light and accommodation. Extraocular movements are intact. NECK: Supple without lymphadenopathy. CHEST: Lungs are clear to auscultation bilaterally without wheezes or rales. CARDIOVASCULAR: Regular rate. S1 and S2 normal without murmurs, rubs, or gallops. ABDOMEN: Soft, nontender, nondistended. Positive bowel sounds. No evidence of hepatosplenomegaly. Currently, no rebound or guarding noted. EXTREMITIES: Negative for clubbing, cyanosis, or edema. RECTAL: Not performed. GENITALIA: Not performed. NEUROLOGIC: Cranial nerves II through XII are grossly intact without focal deficits. Motor strength is 5/5 bilaterally. Deep tendon reflexes are 2+ plantar. LABORATORY STUDIES: WBC 14.7, hemoglobin 12.9, hematocrit 39.2, platelets 238,000. Sodium 142, potassium 4.6, chloride 105, CO2 29, BUN 37, creatinine 1.5, glucose 118. Total bilirubin elevated at 1.9. Direct bilirubin elevated at 1.4, AST elevated 291, ALT elevated at 102, alkaline phosphatase at 1628. Urinalysis showed 1+ protein, 1+ bilirubin, positive urobilinogen 4+, leukocyte esterase 1+, with 5 to 10 wbc's. A chest x-ray revealed infiltrate versus atelectasis of the left lower lobe of the lung. An abdominal ultrasound revealed multiple echogenic foci. CT scan of the abdomen is recommended. ASSESSMENT: This is a 74-year-old male. 1. Upper gastrointestinal hemorrhage. 2. Elevated liver enzymes. 3. Liver masses. 4. Gastroesophageal reflux disease. 5. Hypercholesterolemia. 6. Hypertension. 7. Benign prostatic hypertrophy. TREATMENT: 1. Elevated liver enzymes/upper gastrointestinal hemorrhage. Gastroenterology consultation obtained with Dr. Martínez Olsen. An endoscopy has been scheduled. We will follow recommendations of Gastroenterology. Elevated liver enzymes may be secondary to liver masses secondary to metastatic disease. 2. Liver masses. See discussion above. 3. Gastroesophageal reflux disease. The patient has been placed on Protonix. 4. Hypercholesterolemia. Continue atorvastatin. 5. Hypertension. The patient is currently hypotensive due to hypovolemia. 6. Benign prostatic hypertrophy. Continue Flomax as above. Betito Naylor M.D. DR: Kip JOB#: [id number] CC:
--- NOTE | 2019-04-30 21:45 | NUR ---
TRANSFER TO FLOOR: Patient transferred to Telemetry, per Dr. Duenas. Report given to Mandi RN. Belongings and medications given to patient. Family and or S/O informed of transfer.
--- NOTE | 2019-04-30 21:45 | NUR ---
NURSE NOTES: Received pt from SDU via gurney. Pt transferred to [facility] without any incident. Pt is A/Ox1-2. [place] pt to unit and room. Received report from ELSA Thompson. yeast pumper is in placed, IV site intact, asymptomatic, and patent. Bed is in the lowest position and locked, call light within reach. Belongings list checked and accounted for. Orders received. No signs and symptoms of acute distress noted at this time. Will continue plan of care.
[2019-04-30] MEDS ORDERED: Nitroglycerin Subl 0.4mg tab SL PRN (22:00)
[2019-05-01] VITALS: BP 102/74
[2019-05-01 04:00] VITALS: BP 110/67
--- NOTE | 2019-05-01 05:00 | NUR ---
HAND-OFF: Report given to ELSA Majano. Pt is in stable condition. Plan of care endorsed.
--- NOTE | 2019-05-01 05:05 | NUR ---
NURSE NOTES: Received report from ELSA Raymond. Patient in bed asleep showing no signs of acute distress. AOx2-3. Respiration even and non labored on 2L NC O2. No sob noted. IV noted on R ac 18g on D5NS @75cc/hr patent and intact. Bed in lowest position, wheels locked, call button within reach, and alarm on. All needs attended and met. Will continue to monitor.
[2019-05-01 05:59] LABS: BASOPHILS % (AUTO) 0.4 % (0.0-2.0); EOSINOPHILS % (AUTO) 0.9 % (0.0-3.0); HEMATOCRIT 37.2 % (42.0-52.0); LYMPHOCYTES % (AUTO) 7.1 % (20.0-45.0); MEAN CORPUSCULAR VOLUME 82 FL (80-99); MONOCYTES % (AUTO) 8.2 % (1.0-10.0); NEUTROPHILS % (AUTO) 83.5 % (45.0-75.0); PLATELET COUNT 224 K/UL (150-450); RED BLOOD COUNT 4.51 M/UL (4.70-6.10); RED CELL DISTRIBUTION WIDTH 14.1 % (11.6-14.8); WHITE BLOOD COUNT 13.5 K/UL (4.8-10.8)
[2019-05-01 06:12] LABS: INR 1.1 (0.9-1.1)
[2019-05-01 06:22] LABS: ALANINE AMINOTRANSFERASE 70 U/L (12-78); ALBUMIN 1.4 G/DL (3.4-5.0); ALBUMIN/GLOBULIN RATIO 0.4 (1.0-2.7); ALKALINE PHOSPHATASE 1296 U/L (46-116); ANION GAP 7 mmol/L (5-15); ASPARTATE AMINO TRANSFERASE 209 U/L (15-37); BILIRUBIN,TOTAL 1.8 MG/DL (0.2-1.0); BLOOD UREA NITROGEN 21 mg/dL (7-18); CALCIUM 7.8 MG/DL (8.5-10.1); CARBON DIOXIDE 24 MMOL/L (21-32); CHLORIDE 116 MMOL/L (98-107); CREATININE 1.3 MG/DL (0.55-1.30); POTASSIUM 4.1 MMOL/L (3.5-5.1); SODIUM 147 MMOL/L (136-145)
[2019-05-01 06:23] LABS: BILIRUBIN,DIRECT 1.4 MG/DL (0.0-0.3)
--- NOTE | 2019-05-01 07:33 | NUR ---
HAND-OFF: Report given to ELSA Hdez.
[2019-05-01 08:00] VITALS: BP 117/74
--- NOTE | 2019-05-01 08:14 | NUR ---
NURSE NOTES: Received report from [place] Majano. Patient is awake lying comfortably in bed denies pain or discomfort. Patient is NPO for EGD today. safety precautions in place. call bass within patients reached will follow.
[2019-05-01] MEDS: Pantoprazole Inj IVP SCH ×2 (08:57→21:40)
[2019-05-01] MEDS ORDERED: Tamsulosin 0.4mg cap ORAL SCH (09:00)
--- NOTE | 2019-05-01 09:21 | NUR ---
SWALLOW/SPEECH THERAPY NOTE: REFERRED BY DR BEJARANO FOR SWALLOW EVALUATION, SEE FULL REPORT IN ST CARE ACTIVITY SECTION. DYSPHAGIA RISK FACTORS FOR THIS 74 Y.O.M.: ACUTE GIB WITH COFFEE GROUND EMESIS, POOR PO INTAKE, AND POSSIBLE LUNG INFILTRATE H/O OROPHARYNGEAL DYSPHAGIA, ADULT FTT, WT LOSS, GERD, CVA, IDIOPATHIC NORMAL PRESSURE HYDROCEPHALUS, MDD, HTN, CKD, LIVERMASSES AND FALL. RELEVANT MEDS: PROTONIX (GERD), ZOFRAN, MORPHINE (PAIN) PER POLST OK TO HAVE NURSING HOME ARTIFICIAL NUTRITION INCLUDING TUBE FEEDINGS IF INDICATED. AT [facility] ON A [facility] SOFT CHOPPED DIET (LATER DOWNGRADED TO PUREED) AND NECTAR THICK LIQUIDS WITH ENSURE OR CHOCOLATE BOOST (NO STRAW). CURRENTLY NPO (OR CLEAR DIET GIVEN GIB) FOR SWALLOW EVAL AND EGD ON SUNDAY PER TAMMIE (GI PHOTOGRAPHER PORTRAIT).NPO EXCEPT MEDS (HAS IV) NOW. PER RN PLACE ON LOW NA DIET TYPE WITH ENSURE ENLIVE BID (LIKELY CLEAR) UNTIL EGD TOMORROW. PT ALERT, CONFUSED (SF FOR LA CONFABULATES INFORMATION) BUT ABLE TO SPEAK IN INTELLIGIBLE WORDS.DOES NOT INITIATE COMMUNICATION. VOICE LOUDNESS GOOD ON 2 LITERS NC. RR 16 TO 20 RANGE. GIVEN SILENT ASPIRATION RISK RISK (CVA HX AND CURRENT POSSIBLE LUNG INFILTRATE) WILL HOLD ON PO TRIALS INITIAL IMPRESSIONS: HIGH RISK FOR A SIGNIFICANT OROPHARYNGEAL DYSPHAGIA SLOWER TONGUE MOVEMENTS, TONGUE TREMOR WITH INTENTION, DID NOT UNDERSTAND STRENGTH RESISTANCE TESTING, GOOD ROM.. LIPS GROSSLY FUNCTIONAL AND GOOD DENTITION COUGH WEAK (TO COMMAND) HAS STICKY MILD AMOUNTS OF BROWNISH YELLOW PHLEGM IN HIS MOUTH, NEEDED CUES TO TAKE IT OUT OF HIS MOUTH. PER RNS S/S OF ASPIRATION (COUGH) WITH THIN LIQUIDS AND NECTAR THICK LIQUIDS YESTERDAY AND PER RN TODAY NO OVERT S/S OF ASPIRATION WITH CRUSHED MEDS AND APPLESAUCE (PT DENIES SWALLOWING PROBLEMS). WILL HOLD PO TRIALS FOR NOW SINCE HE HAS A SILENT ASPIRATION RISK AND A CURRENT PNA. RECOMMENDATIONS: COMPLETE MODIFIED BARIUM SWALLOW STUDY TODAY WITH LIQUIDS ONLY (PER GI PHOTOGRAPHER PORTRAIT) SKILLED DYSPHAGIA MANAGEMENT AND TX COGNITIVE-COMMUNICATIVE EVAL/TX (CVA HX AND CONFUSED AND DISORIENTED) D/W ABOVE WITH STAFF AND PATIENT (WHO IS CONFUSED) Addendum: 05/02/19 at 0846 by KUSHAL GREEN CNC LATHE MACHINIST recent dx of multiple lesions in the liver consistent with metastatic neoplasm.
--- NOTE | 2019-05-01 10:41 | Diagnostic Imaging Report ---
Indication: Abdominal pain Technique: MRI of the abdomen was performed in a 1.5 Maral magnet. Pulse sequences obtained include coronal and axial T2 single shot fast spin echo breathhold, Axial T1 FSPGR in/out phase, Axial T2 FSE w/ fat saturation, Axial 2-D FIESTA, Ax/Cor T1 LAVA. Comparison: None Findings: Study is significantly degraded by motion. Ultrasound findings are noted. The liver is diffusely enlarged secondary to multiple T1 hypointense/T2 hyperintense lesions extensively involving both lobes and the suspicious for metastatic neoplasm. There is trace ascites demonstrated. There is no hydronephrosis. Gallbladder is noted and grossly unremarkable. There is no biliary ductal dilatation identified. There are bilateral renal cysts. Trace bilateral pleural effusions are noted. There is a moderate size hiatal hernia. IMPRESSION: Limited study due to motion. Multiple lesions in the liver consistent with metastatic neoplasm. Trace ascites Bilateral pleural effusions Bilateral renal cysts
--- NOTE | 2019-05-01 11:03 | NUR ---
SWALLOW/SPEECH THERAPY NOTE: COMPLETED MODIFIED BARIUM SWALLOW STUDY, SEE FULL REPORT TO FOLLOW IN ST CARE ACTIVITY SECTION. ALERT AND HAS 2 LITERS 02 NC. NEEDED TO HELP PT REMOVE THICK STRINGY PHLEGM FROM HIS MOUTH (LATER MAY NEED DEEP SUCTION FOR SOME TRACE PHLEGM IN LOWER PHARYNX COATED BY BARIUM). SPONTANEOUS TILTS HEAD TO THE LEFT AND PUTS CHIN UP SLIGHTLY. RIGHT LABIAL WEAKNESS/ASYMMETRY. 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 THIN LIQUIDS SEQUENTIAL SIPS VIA STRAW SIGNIFICANT (10% OR MORE) OF AUDIBLE ASPIRATION (ON 2ND BOLUS/SWALLOW DUE TO DELAYED SWALLOW/LATE CLOSURE OF LARYNGEAL VESTIBULE AND REDUCED BOLUS TRANSPORT). THIN LIQUID WASH TSP X2 AFTER HONEY THICK LIQUID TSP: POSSIBLE AND LIKELY HAD TRACE AUDIBLE ASPIRATION ON 2ND TSP (NO FLUORO) TO CLEAR OP RESIDUE AFTER THE INITIAL SWALLOW. TSPX2 AND CUP: TRACE LARYNGEAL PENETRATION ABOVE VOCAL FOLDS WITH EJECTION NO COUGH AND DUE TO LATE SWALLOW/CLOSURE OF LARYNGEAL VESTIBULE. NECTAR THICK LIQUIDS TSP/CUP NO ASP/PENETRATION STRAW SEQUENTIAL: TRACE SILENT LARYNGEAL PENETRATION ABOVE VOCAL FOLDS WITH EJECTION DUE TO LATE SWALLOW AND LATE/INCOMPLETE CLOSURE OF LARYNGEAL VESTIBULE (ON 2ND SWALLOW). RISK FOR CHRONIC TRACE ASPIRATION BEFORE AND AFTER THE SWALLOW HONEY THICK LIQUIDS TSP ONLY NO ASPIRATION/PENETRATION BUT HAD MORE OROPHARYNGEAL RESIDUE AFTER THE SWALLOW (REQUIRED THIN LIQUID TSPX2 WASH TO CLEAR RESIDUE) RISK FOR CHRONIC TRACE ASPIRATION/PENETRATION AFTER THE SWALLOW FROM POOR SENSATION FOR OROPHARYNGEAL RESIDUE WITH ALL CONSISTENCIES. NOT GIVEN PUREED TSP AND MASTICATED SOLIDS SINCE PT ONLY ON LIQUIDS DUE TO EGD AND UPPER GIB. DEFICITS/COMPONENTS THAT INCREASE ASP/PENETRATION RISK AND REDUCED SWALLOW EFFICIENCY: Oral Impairment Lip Closure (R asymmetry weakness but oral spillage on left but tilts head to L) Tongue Control Bolus prep/mastication Bolus transport/lingual motion Oral residue reduced sensation for residue (and phlegm in mouth) Init. pharyngeal swallow (2 seconds first at times, longer for consecutive swallows) Pharyngeal Impairment Laryngeal elevation (LE) Ant. hyoid excursion Epiglottic movement Laryng vestibular closure Pharyngeal stripping wave Pharyngoesophageal segment opening Tongue base retraction Pharyngeal residue Decreased pharyngeal sensation ESOPHAGEAL PHASE GROSSLY FUNCTIONAL AND LIMITED VIEW IN LATERAL. TRIAL TX: SOME VARIABLE BENEFIT FROM EXTRA HARD SWALLOW (NEEDED MAX CUES), LIQUID WASH, SMALL AMOUNTS TSP LEVEL, MORE TIME. TENDS TO SPONTANEOUSLY LIFT HIS HEAD SLIGHTLY UP (SOMETIME TO HELP TONGUE WITH A-P TRANSIT AND GRAVITY ASSIST). TENDS TO TILT HEAD TO THE LEFT (COULD BENEFIT FROM PILLOW TO PUT HEAD IN MIDLINE). COULD BENEFIT FROM EFFORTFUL BREATH HOLD AND POSSIBLY CHIN TUCK (POOR FOLLOWING COMMANDS AND CONFUSED). LIKELY UNABLE TO CONSISTENTLY MEET NUTRITION/HYDRATION NEEDS (LIKE PRIOR TO ADMIT) RECOMMENDATIONS: HOLD PO FOR NOW, CONSIDER NONORAL FEEDINGS PRIMARY OR SUPPLEMENT TO PO INTAKE (OR ORAL GRATIFICATION). PATIENT SAID HE WAS IN FAVOR OF DISCUSSING NONORAL FEEDING ALTERNATIVES (TO CONSIDER TEMPORARY NGT 12 BELARUSIAN NOW AND PEG LATER) (ALSO NOTED ON HIS POLST) GIVEN WT LOSS, POSS LUNG INFILTRATE, AND POOR AND SLOW INTAKE. CONTINUE WITH NO PO FOR NOW AND CONTINUE WITH ORAL CARE. CONSIDER RESP THERAPY AND DEEP NASAL SUCTION NEEDED. DYSPHAGIA MANAGEMENT AND TX (PO WITH AUTOMATIC WASHER MECHANIC POST EGD). D/W ELSA MAYS AND GI PREPARATION SUPERVISOR FREEZING TAMMIE WHO WILL REACH OUT TO THE FAMILY. D/W REILLY PRATHER REGARDING FORMULA ONLY IF PT IS RECEPTIVE TO TUBE FEEDINGS. Addendum: 05/01/19 at 1111 by KUSHAL GREEN AUTOMATIC WASHER MECHANIC SWALLOW STATUS AND PLAN: SEE SWALLOW EVAL AND MOD BARIUM SWALLOW STUDY REPORT EDUCATED/TRAINED MILK TANKER DRIVER TABATHA AND AMANDA YOO IN NEED FOR NPO AND ONLY ORAL CARE FOR NOW (POSTED SIGN) HIS BROTHER IS HERE TODAY 12-1 Addendum: 05/01/19 at 1114 by KUSHAL PURI LEFT MESSAGE WITH DR BEJARANO
[2019-05-01] MEDS: D5NS 1,000 ML IV SCH (11:33)
--- NOTE | 2019-05-01 11:45 | GI Progress Note ---
Assessment/Plan Problems: (1) Severe malnutrition ICD Codes: E43 - Unspecified severe protein-calorie malnutrition SNOMED: 60875085 (2) At high risk for aspiration ICD Codes: Z91.89 - Other specified personal risk factors, not elsewhere classified SNOMED: 223402590 (3) Coffee ground emesis ICD Codes: K92.0 - Hematemesis SNOMED: 96402693 (4) CVA (cerebrovascular accident) ICD Codes: I63.9 - Cerebral infarction, unspecified SNOMED: 295133839 (5) Elevated LFTs ICD Codes: R94.5 - Abnormal results of liver function studies SNOMED: 140705936, 008932829 Status: unchanged Status Narrative Discussed with Dr. Olsen Assessment/Plan This is a 74-year-old male patient that presented with reported multiple episodes of coffee-ground emesis. Discussed with speech therapist noted that the patient has moderately severe oral pharyngeal dysphasia and may benefit from a gastrostomy for nutrition supplementation. MRCP/US reviewed noted that the liver have multiple lesions consistent with metastatic neoplasm. Plan for upper endoscopy tomorrow to evaluate coffee-ground, possible PEG placement. Awaiting brother to have discussion regarding GT placement. will need oncology consult Maintain clear liquid diet, n.p.o. at midnight. Will order herbert CT Continue Protonix 40 mg twice a day Monitor hematocrit hemoglobin and hematocrit, PRN transfusions Hold all blood thinners tonight IV and p.o. hydration We will follow with additional recommendations postprocedure The patient was seen and examined at bedside and all new and available data was reviewed in the patients chart. I agree with the above findings, impression and plan. (Patient seen earlier today. Signature stamp does not reflect patient encounter time.). - Martínez Olsen MD Subjective Subjective Generalized weakness Objective Last 24 Hour Vital Signs Date Time Temp Pulse Resp B/P (MAP) Pulse Ox O2 Delivery O2 Flow Rate FiO2 05/01/19 08:00 97.7 79 20 117/74 (88) 93 05/01/19 04:00 92 05/01/19 04:00 97.3 90 18 110/67 (81) 93 05/01/19 00:00 95 05/01/19 00:00 97.4 95 17 102/74 (83) 95 04/30/19 21:00 Nasal Cannula 2.0 04/30/19 20:00 96.6 99 16 96/66 (76) 96 04/30/19 19:04 98 04/30/19 16:00 81 04/30/19 15:44 97.9 81 20 98/58 (71) 94 04/30/19 14:30 98.1 96 20 93/61 (72) 90 04/30/19 12:00 98.1 90 18 93/55 (68) 90 04/30/19 11:42 85 Intake and Output 04/30/19 05/01/19 18:59 06:59 Intake Total 413.33 ml Output Total 200 ml Balance 213.33 ml Intake IV Total 413.33 ml Output Urine Total 200 ml # Voids 2 2 # Bowel Movements 2 Laboratory Tests Test 05/01/19 05:52 White Blood Count 13.5 K/UL (4.8-10.8) H Red Blood Count 4.51 M/UL (4.70-6.10) L Hemoglobin 12.0 G/DL (14.2-18.0) L Hematocrit 37.2 % (42.0-52.0) L Mean Corpuscular Volume 82 FL (80-99) Mean Corpuscular Hemoglobin 26.7 PG (27.0-31.0) L Mean Corpuscular Hemoglobin Concent 32.4 G/DL (32.0-36.0) Red Cell Distribution Width 14.1 % (11.6-14.8) Platelet Count 224 K/UL (150-450) Mean Platelet Volume 6.3 FL (6.5-10.1) L Neutrophils (%) (Auto) 83.5 % (45.0-75.0) H Lymphocytes (%) (Auto) 7.1 % (20.0-45.0) L Monocytes (%) (Auto) 8.2 % (1.0-10.0) Eosinophils (%) (Auto) 0.9 % (0.0-3.0) Basophils (%) (Auto) 0.4 % (0.0-2.0) Prothrombin Time 11.5 SEC (9.30-11.50) Prothromb Time International Ratio 1.1 (0.9-1.1) Activated Partial Thromboplast Time 31 SEC (23-33) Sodium Level 147 MMOL/L (136-145) H Potassium Level 4.1 MMOL/L (3.5-5.1) Chloride Level 116 MMOL/L (98-107) H Carbon Dioxide Level 24 MMOL/L (21-32) Anion Gap 7 mmol/L (5-15) Blood Urea Nitrogen 21 mg/dL (7-18) H Creatinine 1.3 MG/DL (0.55-1.30) Estimat Glomerular Filtration Rate mL/min (>60) Glucose Level 127 MG/DL (74-106) H Calcium Level 7.8 MG/DL (8.5-10.1) L Total Bilirubin 1.8 MG/DL (0.2-1.0) H Direct Bilirubin 1.4 MG/DL (0.0-0.3) H Aspartate Amino Transf (AST/SGOT) 209 U/L (15-37) H Alanine Aminotransferase (ALT/SGPT) 70 U/L (12-78) Alkaline Phosphatase 1296 U/L (46-116) H Total Protein 4.9 G/DL (6.4-8.2) L Albumin 1.4 G/DL (3.4-5.0) L Globulin 3.5 g/dL Albumin/Globulin Ratio 0.4 (1.0-2.7) L Height (Feet): 5 Height (Inches): 9.00 Weight (Pounds): 151 General Appearance: WD/WN, no apparent distress, alert, thin Cardiovascular: normal rate Respiratory/Chest: normal breath sounds, no respiratory distress Abdominal Exam: normal bowel sounds, non tender, soft Extremities: non-tender John Chowdhury NP May 01, 2019 11:45
[2019-05-01 12:00] VITALS: BP 101/72
[2019-05-01] MEDS ORDERED: Omnipaque-300 100ml vial INJ ONE (12:00)
[2019-05-01] MEDS ORDERED: Omnipaque-300 100ml vial INJ PRN (12:00)
--- NOTE | 2019-05-01 12:58 | Diagnostic Imaging Report ---
APPROVED REPORT CPT Code: 21734 Present Symptoms Comments: R/O DVT No signs of DVT seen bilaterally. Patent CFV, SFV(prox, dist), POP v, Calf veins
--- NOTE | 2019-05-01 13:22 | Pulmonology Progress Note ---
Assessment/Plan Problems: (1) Metastatic disease (2) LLL pneumonia (3) UGIB (upper gastrointestinal bleed) (4) At high risk for aspiration (5) Benign prostatic hyperplasia (6) Chronic renal insufficiency (7) History of hypertension (8) CVA (cerebrovascular accident) (9) Normal pressure hydrocephalus (10) Elevated LFTs Assessment/Plan CT chest symptomatic treatment GI f/u aspiration precaution anemia w/u Subjective ROS Limited/Unobtainable: No Constitutional: Reports: no symptoms HEENT: Repors: no symptoms Respiratory: Reports: no symptoms Allergies: Coded Allergies: BENAZEPRIL (Verified Allergy, Unknown, 04/29/19) PENICILLINS (Verified Allergy, Unknown, 04/29/19) TERAZOSIN (Verified Allergy, Unknown, 04/29/19) Objective Last 24 Hour Vital Signs Date Time Temp Pulse Resp B/P (MAP) Pulse Ox O2 Delivery O2 Flow Rate FiO2 05/01/19 08:00 97.7 79 20 117/74 (88) 93 05/01/19 04:00 92 05/01/19 04:00 97.3 90 18 110/67 (81) 93 05/01/19 00:00 95 05/01/19 00:00 97.4 95 17 102/74 (83) 95 04/30/19 21:00 Nasal Cannula 2.0 04/30/19 20:00 96.6 99 16 96/66 (76) 96 04/30/19 19:04 98 04/30/19 16:00 81 04/30/19 15:44 97.9 81 20 98/58 (71) 94 04/30/19 14:30 98.1 96 20 93/61 (72) 90 Intake and Output 04/30/19 05/01/19 18:59 06:59 Intake Total 413.33 ml Output Total 200 ml Balance 213.33 ml Intake IV Total 413.33 ml Output Urine Total 200 ml # Voids 2 2 # Bowel Movements 2 General Appearance: cachetic HEENT: normocephalic, anicteric Respiratory/Chest: chest wall non-tender, lungs clear Cardiovascular: normal peripheral pulses, normal rate Abdomen: normal bowel sounds, soft, non tender Genitourinary: normal external genitalia Skin: no ulcers Microbiology Date/Time Source Procedure Growth Status 04/29/19 20:00 Blood Blood Culture - Preliminary NO GROWTH AFTER 24 HOURS Resulted 04/29/19 19:45 Blood Blood Culture - Preliminary NO GROWTH AFTER 24 HOURS Resulted 04/29/19 20:45 Urine,Clean Catch Urine Culture - Preliminary Gram Negative Scott Resulted 04/29/19 19:45 Rectum Received Laboratory Tests 05/01/19 05:52: White Blood Count 13.5H, Red Blood Count 4.51L, Hemoglobin 12.0L, Hematocrit 37.2L, Mean Corpuscular Volume 82, Mean Corpuscular Hemoglobin 26.7L, Mean Corpuscular Hemoglobin Concent 32.4, Red Cell Distribution Width 14.1, Platelet Count 224, Mean Platelet Volume 6.3L, Neutrophils (%) (Auto) 83.5H, Lymphocytes (%) (Auto) 7.1L, Monocytes (%) (Auto) 8.2, Eosinophils (%) (Auto) 0.9, Basophils (%) (Auto) 0.4, Prothrombin Time 11.5, Prothromb Time International Ratio 1.1, Activated Partial Thromboplast Time 31, Sodium Level 147H, Potassium Level 4.1, Chloride Level 116H, Carbon Dioxide Level 24, Anion Gap 7, Blood Urea Nitrogen 21H, Creatinine 1.3, Estimat Glomerular Filtration Rate , Glucose Level 127H, Calcium Level 7.8L, Total Bilirubin 1.8H, Direct Bilirubin 1.4H, Aspartate Amino Transf (AST/SGOT) 209H, Alanine Aminotransferase (ALT/SGPT) 70, Alkaline Phosphatase 1296H, Total Protein 4.9L, Albumin 1.4L, Globulin 3.5, Albumin/Globulin Ratio 0.4L Current Medications Medications (Trade) Dose Ordered Sig/Eric Route PRN Reason Start Time Stop Time Status Last Admin Dose Admin Acetaminophen (Tylenol) 650 mg Q4H PRN ORAL fever 05/01/19 01:15 05/29/19 21:14 Barium Sulfate (Readi-Cat 2) 450 ml NOW PRN ORAL Radiology Procedure 05/01/19 12:00 05/03/19 11:58 Barium Sulfate (Varibar Honey) 250 ml NOW PRN MC RAD 05/01/19 15:15 Barium Sulfate (Varibar [place]) 240 ml NOW PRN MC RAD 05/01/19 15:15 05/03/19 15:06 Barium Sulfate (Varibar Pudding) 230 ml NOW PRN MC RAD 05/01/19 15:15 10/5/19 15:06 Ciprofloxacin 200 ml @ 200 mls/hr ONCE ONCE IV 05/02/19 08:00 05/02/19 08:59 UNV Dextrose (Dextrose 50%) 25 ml Q30M PRN IV Hypoglycemia 04/30/19 22:15 05/29/19 21:14 Dextrose (Dextrose 50%) 50 ml Q30M PRN IV Hypoglycemia 04/30/19 22:15 05/29/19 21:14 Dextrose/Sodium Chloride 1,000 ml @ 75 mls/hr [id number] IV 04/30/19 22:00 05/29/19 10:59 05/01/19 11:33 Diphenhydramine HCl (Benadryl) 25 mg Q6H PRN ORAL Itching/Pruritis 04/30/19 22:00 05/30/19 21:59 Finasteride (Proscar) 5 mg DAILY ORAL 05/01/19 09:00 05/30/19 08:59 05/01/19 08:57 Iohexol (OMNIPAQUE-300 100ml) 100 ml NOW PRN INJ Radiology Procedure 05/01/19 12:00 05/03/19 11:58 Nitroglycerin (Ntg) 0.4 mg Q5M X 3 DOSES PRN SL Prn Chest Pain 04/30/19 22:00 05/29/19 21:14 Ondansetron HCl (Zofran) 4 mg Q6H PRN IVP Nausea & Vomiting 04/30/19 22:00 05/30/19 21:59 Pantoprazole (Protonix) 40 mg EVERY 12 HOURS IVP 05/01/19 09:00 05/30/19 20:59 05/01/19 08:57 Promethazine HCl/ Codeine (Phenergan with Codeine) 5 ml Q4H PRN ORAL For Cough 04/30/19 23:00 05/30/19 10:59 Tamsulosin HCl (Flomax) 0.4 mg DAILY ORAL 05/01/19 09:00 05/30/19 08:59 05/01/19 08:57 Temazepam (Restoril) 15 mg HSPRN PRN ORAL Insomnia 04/30/19 22:15 05/07/19 22:14 Octavia Morse MD May 01, 2019 13:22
--- NOTE | 2019-05-01 14:29 | NUR ---
RD ASSESSMENT & RECOMMENDATIONS SEE CARE ACTIVITY FOR COMPLETE ASSESSMENT DAILY ESTIMATED NEEDS: Needs based on Cardiac, liver dysfunction, wound 68.8kg 25-30 kcals/kg 3907-4455 total kcals 1.25-1.5 g protein/kg 86-103 g total protein 25-30 mL/kg 1848-2039 total fluid mLs NUTRITION DIAGNOSIS: * Swallowing difficulty R/T dysphagia as evidenced by s/p VSS w/ rec for nonoral feedings as primary or supplement to PO intake, possible PEG placement pending. * Altered GI fxn related GIB as evidenced by pt adm w/ coffee ground emesis, EGD pending, NPO at this time. CURRENT DIET: NPO PO DIET RECOMMENDATIONS: IF SAFE FOR ORAL DIET: LOW NA (texture per CLAY CARMAN) ENTERAL NUTRITION RECOMMENDATIONS: Osmolite 1.2 @ 65ml/hr x 24 hrs to provide 1560ml, 1872kcal, 87g prot, 1279ml free water * If part of POC and w/ GI access: -> initiate TF of Osmolite 1.2 @ 15ml/hr x 6 hrs, -> advance 10ml q 4-6 hrs as tolerated to goal rate -> HOB over 30 degrees/ water flush per MD * HOB Over 30 degrees/ water flush per MD ADDITIONAL RECOMMENDATIONS: 1) Monitor POC: TF vs oral diet -> possibly pending PEG placement 2) Monitor lytes, replete as needed 3) Wound healing: add Joaquin 1pkt BID if able 4) Weekly weights- pt adm w/ reported wt loss and progressive weakness .
[2019-05-01] MEDS ORDERED: Varibar Honey 250ml MC PRN (15:15)
[2019-05-01] MEDS ORDERED: Varibar Pudding 230ml MC PRN (15:15)
[2019-05-01] MEDS ORDERED: Varibar Nectar 240ml MC PRN (15:15)
[2019-05-01 16:00] VITALS: BP 110/76
--- NOTE | 2019-05-01 16:24 | Internal Med Progress Note ---
Subjective Date of Service: May 01, 2019 Physician Name Betito Naylor Attending Physician Dionte Duenas MD Current Medications Medications (Trade) Dose Ordered Sig/Eric Route PRN Reason Start Time Stop Time Status Last Admin Dose Admin Acetaminophen (Tylenol) 650 mg Q4H PRN ORAL fever 05/01/19 01:15 05/29/19 21:14 Barium Sulfate (Readi-Cat 2) 450 ml NOW PRN ORAL Radiology Procedure 05/01/19 12:00 05/03/19 11:58 Barium Sulfate (Varibar Honey) 250 ml NOW PRN MC RAD 05/01/19 15:15 05/03/19 15:14 Barium Sulfate (Varibar [place]) 240 ml NOW PRN MC RAD 05/01/19 15:15 05/03/19 15:06 Barium Sulfate (Varibar Pudding) 230 ml NOW PRN MC RAD 05/01/19 15:15 05/03/19 15:06 Ciprofloxacin 200 ml @ 200 mls/hr ONCE ONCE IV 05/02/19 08:00 05/02/19 08:59 Dextrose (Dextrose 50%) 25 ml Q30M PRN IV Hypoglycemia 04/30/19 22:15 05/29/19 21:14 Dextrose (Dextrose 50%) 50 ml Q30M PRN IV Hypoglycemia 04/30/19 22:15 05/29/19 21:14 Dextrose/Sodium Chloride 1,000 ml @ 75 mls/hr [id number] IV 04/30/19 22:00 05/29/19 10:59 05/01/19 11:33 Diphenhydramine HCl (Benadryl) 25 mg Q6H PRN ORAL Itching/Pruritis 04/30/19 22:00 05/30/19 21:59 Finasteride (Proscar) 5 mg DAILY ORAL 05/01/19 09:00 05/30/19 08:59 05/01/19 08:57 Iohexol (OMNIPAQUE-300 100ml) 100 ml NOW PRN INJ Radiology Procedure 05/01/19 12:00 05/03/19 11:58 Nitroglycerin (Ntg) 0.4 mg Q5M X 3 DOSES PRN SL Prn Chest Pain 04/30/19 22:00 05/29/19 21:14 Ondansetron HCl (Zofran) 4 mg Q6H PRN IVP Nausea & Vomiting 04/30/19 22:00 05/30/19 21:59 Pantoprazole (Protonix) 40 mg EVERY 12 HOURS IVP 05/01/19 09:00 05/30/19 20:59 05/01/19 08:57 Promethazine HCl/ Codeine (Phenergan with Codeine) 5 ml Q4H PRN ORAL For Cough 04/30/19 23:00 05/30/19 10:59 Tamsulosin HCl (Flomax) 0.4 mg DAILY ORAL 05/01/19 09:00 05/30/19 08:59 05/01/19 08:57 Temazepam (Restoril) 15 mg HSPRN PRN ORAL Insomnia 04/30/19 22:15 05/07/19 22:14 Allergies: Coded Allergies: BENAZEPRIL (Verified Allergy, Unknown, 04/29/19) PENICILLINS (Verified Allergy, Unknown, 04/29/19) TERAZOSIN (Verified Allergy, Unknown, 04/29/19) ROS Limited/Unobtainable: No Constitutional: Reports: no symptoms HEENT: Reports: no symptoms Cardiovascular: Reports: no symptoms Respiratory: Reports: no symptoms Gastrointestinal/Abdominal: Reports: no symptoms Genitourinary: Reports: no symptoms Neurologic/Psychiatric: Reports: no symptoms Subjective 74 YO M admitted with upper GI bleed. Now liver masses. Await EGD Sun05/02/19. Cover for Int Isaiah-Dr. Duenas. Objective Last Vital Signs Date Time Temp Pulse Resp B/P (MAP) Pulse Ox O2 Delivery O2 Flow Rate FiO2 05/01/19 12:00 86 05/01/19 12:00 97.3 22 101/72 (82) 96 05/01/19 09:00 Nasal Cannula 2.0 Laboratory Tests Test 05/01/19 05:52 White Blood Count 13.5 K/UL (4.8-10.8) H Red Blood Count 4.51 M/UL (4.70-6.10) L Hemoglobin 12.0 G/DL (14.2-18.0) L Hematocrit 37.2 % (42.0-52.0) L Mean Corpuscular Volume 82 FL (80-99) Mean Corpuscular Hemoglobin 26.7 PG (27.0-31.0) L Mean Corpuscular Hemoglobin Concent 32.4 G/DL (32.0-36.0) Red Cell Distribution Width 14.1 % (11.6-14.8) Platelet Count 224 K/UL (150-450) Mean Platelet Volume 6.3 FL (6.5-10.1) L Neutrophils (%) (Auto) 83.5 % (45.0-75.0) H Lymphocytes (%) (Auto) 7.1 % (20.0-45.0) L Monocytes (%) (Auto) 8.2 % (1.0-10.0) Eosinophils (%) (Auto) 0.9 % (0.0-3.0) Basophils (%) (Auto) 0.4 % (0.0-2.0) Prothrombin Time 11.5 SEC (9.30-11.50) Prothromb Time International Ratio 1.1 (0.9-1.1) Activated Partial Thromboplast Time 31 SEC (23-33) Sodium Level 147 MMOL/L (136-145) H Potassium Level 4.1 MMOL/L (3.5-5.1) Chloride Level 116 MMOL/L (98-107) H Carbon Dioxide Level 24 MMOL/L (21-32) Anion Gap 7 mmol/L (5-15) Blood Urea Nitrogen 21 mg/dL (7-18) H Creatinine 1.3 MG/DL (0.55-1.30) Estimat Glomerular Filtration Rate mL/min (>60) Glucose Level 127 MG/DL (74-106) H Calcium Level 7.8 MG/DL (8.5-10.1) L Total Bilirubin 1.8 MG/DL (0.2-1.0) H Direct Bilirubin 1.4 MG/DL (0.0-0.3) H Aspartate Amino Transf (AST/SGOT) 209 U/L (15-37) H Alanine Aminotransferase (ALT/SGPT) 70 U/L (12-78) Alkaline Phosphatase 1296 U/L (46-116) H Total Protein 4.9 G/DL (6.4-8.2) L Albumin 1.4 G/DL (3.4-5.0) L Globulin 3.5 g/dL Albumin/Globulin Ratio 0.4 (1.0-2.7) L Microbiology Date/Time Source Procedure Growth Status 04/29/19 20:00 Blood Blood Culture - Preliminary NO GROWTH AFTER 24 HOURS Resulted 04/29/19 19:45 Blood Blood Culture - Preliminary NO GROWTH AFTER 24 HOURS Resulted 04/29/19 20:45 Urine,Clean Catch Urine Culture - Preliminary Gram Negative Scott Resulted 04/29/19 19:45 Rectum Received Intake and Output 04/30/19 05/01/19 19:00 07:00 Intake Total 413.33 ml Output Total 200 ml Balance 213.33 ml Intake IV Total 413.33 ml Output Urine Total 200 ml # Voids 2 2 # Bowel Movements 2 Objective PHYSICAL EXAMINATION: GENERAL: The patient is well-developed and well-nourished, thin-appearing white male, in no apparent distress. HEENT: Eyes, pupils are equal and responsive to light and accommodation. Extraocular movements are intact. NECK: Supple without lymphadenopathy. CHEST: Lungs are clear to auscultation bilaterally without wheezes or rales. CARDIOVASCULAR: Regular rate. S1 and S2 normal without murmurs, rubs, or gallops. ABDOMEN: Soft, nontender, nondistended. Positive bowel sounds. No evidence of hepatosplenomegaly. Currently, no rebound or guarding noted. EXTREMITIES: Negative for clubbing, cyanosis, or edema. RECTAL: Not performed. GENITALIA: Not performed. NEUROLOGIC: Cranial nerves II through XII are grossly intact without focal deficits. Motor strength is 5/5 bilaterally. Deep tendon reflexes are 2+ plantar. Assessment/Plan Assessment/Plan ASSESSMENT: This is a 74-year-old male. 1. Upper gastrointestinal hemorrhage. 2. Elevated liver enzymes. 3. Liver masses. 4. Gastroesophageal reflux disease. 5. Hypercholesterolemia. 6. Hypertension. 7. Benign prostatic hypertrophy. 8. Pneumonia 9. Liver masses TREATMENT: 1. Elevated liver enzymes/upper gastrointestinal hemorrhage. Gastroenterology consultation obtained with Dr. Martínez Olsen. An endoscopy has been scheduled. We will follow recommendations of Gastroenterology. Elevated liver enzymes may be secondary to liver masses secondary to metastatic disease. 2. Liver masses. See discussion above. 3. Gastroesophageal reflux disease. The patient has been placed on Protonix. 4. Hypercholesterolemia. Continue atorvastatin. 5. Hypertension. The patient is currently hypotensive due to hypovolemia. 6. Benign prostatic hypertrophy. Continue Flomax as above. 7. ABX=Betito Magallon MD May 01, 2019 16:24
--- NOTE | 2019-05-01 19:37 | NUR ---
HAND-OFF: Report given to Case Delacruz Rn.Patient stable during hand off. Plan of care endorsed.
--- NOTE | 2019-05-01 19:38 | NUR ---
NURSE NOTES: Received patient from Ketty HUNTER. Patient is awake and oriented x3. Receiving oxygen via nasal cannula at 2L/min, showing no signs of respiratory distress. IV site is right AC 18g receiving D5NS @ 75cc/hr. Bed is locked, placed in lowest position, head of bed elevated, side rails up x3, call light within reach, bed alarm on. Family at bedside. Will continue to monitor.
[2019-05-01 20:00] VITALS: BP 114/69
[2019-05-02] VITALS (15 sets, daily range): BP systolic 93–114; BP diastolic 56–77
[2019-05-02] MEDS: D5NS 1,000 ML IV SCH ×3 (00:59→12:06)
--- NOTE | 2019-05-02 03:30 | NUR ---
TRANSFER TO FLOOR: Patient transferred to [facility], per Dr. Morse. Report given to Marisol HUNTER. Belongings and medications given to Patient. Family and or S/O informed of transfer.
--- NOTE | 2019-05-02 03:50 | NUR ---
NURSE NOTES:PATIENT TRANSFERRED FROM ROOM 214 TO ROOM 414 BED 1 VIA BED. IV SITE INTACT TO RIGHT AC/GAUGE 18, TOLERATING IV FLUIDS, NO REDNESS/SWELLING NOTED. NPO PENDING EGD, CONSENT SIGNED. PATIENT ALERT/ORIENTED TO PERSON/PLACE, CONFUSED, REALITY ORIENTATION PROVIDED DURING ASSESSMENT, DENIES PAIN. NO SIGNS AND SYMPTOMS OF ACUTE CARDIO RESPIRATORY DISTRESS/SHORTNESS OF BREATH, NO PERIPHERAL EDEMA NOTED. ABDOMEN SOFT/NON DISTENDED/NON TENDER, CONDOM CATHETER INTACT/PATENT, DRAINING YELLOW URINE, NO SIGNS AND SYMPTOMS OF HEMATURIA. NOTED WITH OPEN AREA TO SACRAL CREASE, PICTURE TAKEN AND UPLOADED TO CHART. SIDE RAILS UP X3/BED IN LOWEST POSITION FOR SAFETY, FREQUENT ROUNDING FOR SAFETY/NEEDS. NAD. BED ALARM ACTIVATED.
[2019-05-02] MEDS ORDERED: Varibar Pudding 230ml MC PRN (04:30)
[2019-05-02] MEDS ORDERED: Promethazine/Codeine 5ml UD ORAL PRN (04:30)
[2019-05-02] MEDS ORDERED: Varibar Nectar 240ml MC PRN (04:30)
[2019-05-02] MEDS ORDERED: Nitroglycerin Subl 0.4mg tab SL PRN (04:30)
[2019-05-02] MEDS ORDERED: Varibar Honey 250ml MC PRN (04:30)
[2019-05-02] MEDS ORDERED: Omnipaque-300 100ml vial INJ PRN (04:30)
[2019-05-02 05:05] LABS: HEMATOCRIT 38.9 % (42.0-52.0); HEMOGLOBIN 12.5 G/DL (14.2-18.0); MEAN CORPUSCULAR VOLUME 82 FL (80-99); PLATELET COUNT 257 K/UL (150-450); RED BLOOD COUNT 4.73 M/UL (4.70-6.10); RED CELL DISTRIBUTION WIDTH 14.4 % (11.6-14.8); WHITE BLOOD COUNT 15.7 K/UL (4.8-10.8)
[2019-05-02 05:17] LABS: ANION GAP 8 mmol/L (5-15); BLOOD UREA NITROGEN 18 mg/dL (7-18); CALCIUM 7.9 MG/DL (8.5-10.1); CARBON DIOXIDE 24 MMOL/L (21-32); CHLORIDE 118 MMOL/L (98-107); CREATININE 1.4 MG/DL (0.55-1.30); POTASSIUM 4.2 MMOL/L (3.5-5.1); SODIUM 150 MMOL/L (136-145)
[2019-05-02 05:33] LABS: INR 1.1 (0.9-1.1)
[2019-05-02 05:37] LABS: % IRON SATURATION 17 % (15-50); IRON 17 ug/dL (50-175); TOTAL IRON BINDING CAPACITY 102 ug/dL (250-450)
[2019-05-02 05:40] LABS: LACTATE DEHYDROGENASE 683 U/L (81-234)
--- NOTE | 2019-05-02 07:30 | NUR ---
NURSE NOTES: Received pt from FABIOLA HUNTER. Pt is confused and orient x2. pt has NC 2LMP. Pt has intact iv access LFA 22G is running well. Pt is NPO due to EGD and PEG, consent form for peg gotten by telephone from Pt's brother KELLY PEREZ with witness FABIOLA LUCIO. all needs attended, bed is locked and is in the lowest position. call light within easy reach. will continue to monitor.
[2019-05-02] MEDS ORDERED: DiphenhydrAMINE 50mg/ml Inj IVP PRN (08:30)
[2019-05-02] MEDS ORDERED: LR 1000ml 1,000 ML IVLG SCH (08:30)
--- NOTE | 2019-05-02 08:30 | Anethesia Preoperative Eval ---
Anesthesia Pre-op PMH/ROS General Date of Evaluation: May 02, 2019 Anesthesiologist: Chema ASA Score: ASA 3 Mallampati Score Class I : Soft palate, uvula, fauces, pillars visible Class II: Soft palate, uvula, fauces visible Class III: Soft palate, base of uvula visible Class IV: Only hard plate visible Mallampati Classification: Class III Surgeon: Pretty Diagnosis: Dysphagia Surgical Procedure: EGD and PEG Anesthesia History: none Family History: no anesthesia problems Allergies: Coded Allergies: BENAZEPRIL (Verified Allergy, Unknown, 04/29/19) PENICILLINS (Verified Allergy, Unknown, 04/29/19) TERAZOSIN (Verified Allergy, Unknown, 04/29/19) Medications: see eMAR Patient NPO?: Yes NPO Date: May 01, 2019 NPO Time: 22:00 Past Medical History Cardiovascular: Reports: HTN; Denies: CAD, [place], valve dz, arrhythmia, other Pulmonary: Denies: asthma, COPD, TOMMY, other Gastrointestinal/Genitourinary: Reports: CRI, other - BPH; Denies: GERD, ESRD Neurologic/Psychiatric: Reports: CVA; Denies: dementia, depression/anxiety, TIA, other Endocrine: Denies: DM, hypothyroidism, steroids, other HEENT: Denies: cataract (L), cataract (R), glaucoma, [place] (L), [place] (R), other Hematology/Immune: Denies: anemia, DVT, bleeding disorder, other Musculoskeletal/Integumentary: Reports: OA; Denies: RA, DJD, DDD, edema, other PSxH Narrative: Unable to assess Anesthesia Pre-op Phys. Exam Physician Exam Last Vital Signs Date Time Temp Pulse Resp B/P (MAP) Pulse Ox O2 Delivery O2 Flow Rate FiO2 05/02/19 07:30 97 Nasal Cannula 2.0 28 05/02/19 04:00 97.7 87 18 113/66 (82) Constitutional: NAD Cardiovascular: RRR Respiratory: CTA Airway Exam Mallampati Score: Class III MO: limited ROM: limited Anesthesia Pre-op A/P Labs Hematology Test 05/02/19 04:57 White Blood Count 15.7 K/UL (4.8-10.8) H Red Blood Count 4.73 M/UL (4.70-6.10) Hemoglobin 12.5 G/DL (14.2-18.0) L Hematocrit 38.9 % (42.0-52.0) L Mean Corpuscular Volume 82 FL (80-99) Mean Corpuscular Hemoglobin 26.4 PG (27.0-31.0) L Mean Corpuscular Hemoglobin Concent 32.1 G/DL (32.0-36.0) Red Cell Distribution Width 14.4 % (11.6-14.8) Platelet Count 257 K/UL (150-450) Mean Platelet Volume 6.3 FL (6.5-10.1) L Neutrophils (%) (Auto) % (45.0-75.0) Lymphocytes (%) (Auto) % (20.0-45.0) Monocytes (%) (Auto) % (1.0-10.0) Eosinophils (%) (Auto) % (0.0-3.0) Basophils (%) (Auto) % (0.0-2.0) Neutrophils % (Manual) Pending Lymphocytes % (Manual) Pending Platelet Estimate Pending Platelet Morphology Pending Erythrocyte Sedimentation Rate 42 MM/HR (0-20) H Reticulocyte Count Pending Coagulation Test 05/02/19 04:57 Prothrombin Time 11.4 SEC (9.30-11.50) Prothromb Time International Ratio 1.1 (0.9-1.1) Activated Partial Thromboplast Time 27 SEC (23-33) Chemistry Test 05/02/19 04:57 Sodium Level 150 MMOL/L (136-145) H Potassium Level 4.2 MMOL/L (3.5-5.1) Chloride Level 118 MMOL/L (98-107) H Carbon Dioxide Level 24 MMOL/L (21-32) Anion Gap 8 mmol/L (5-15) Blood Urea Nitrogen 18 mg/dL (7-18) Creatinine 1.4 MG/DL (0.55-1.30) H Estimat Glomerular Filtration Rate mL/min (>60) Glucose Level 123 MG/DL (74-106) H Calcium Level 7.9 MG/DL (8.5-10.1) L Iron Level 17 ug/dL (50-175) L Total Iron Binding Capacity 102 ug/dL (250-450) L Percent Iron Saturation 17 % (15-50) Unsaturated Iron Binding 85 ug/dL (112-346) L Lactate Dehydrogenase 683 U/L (81-234) H Carcinoembryonic Antigen Pending Vitamin B12 Level > 2000 PG/ML (193-986) H Folate 6.6 NG/ML (8.6-58.9) L Studies Pre-op Studies: EKG - sr Risk Assessment & Plan Assessment: ASA III Plan: MAC Status Change Before Surgery: No Pre-Antibiotics Drug: N/A Tanesha Catalan MD May 02, 2019 08:30
--- NOTE | 2019-05-02 08:57 | NUR ---
SWALLOW AND SPEECH THERAPY NOTE: UPDATED MOD BARIUM SWALLOW STUDY SUMMARY POST VIDEOSWALLOW STUDY VIDEO REVIEW WITH ELSA PEREZON: SWALLOW/SPEECH THERAPY NOTE: COMPLETED MODIFIED BARIUM SWALLOW STUDY, SEE FULL REPORT TO FOLLOW IN ST CARE ACTIVITY SECTION. ALERT AND HAS 2 LITERS 02 NC. NEEDED TO HELP PT REMOVE THICK STRINGY PHLEGM FROM HIS MOUTH (LATER MAY NEED DEEP SUCTION FOR SOME TRACE PHLEGM IN LOWER PHARYNX COATED BY BARIUM). SPONTANEOUS TILTS HEAD TO THE LEFT AND PUTS CHIN UP SLIGHTLY. RIGHT LABIAL WEAKNESS/ASYMMETRY. 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 THIN LIQUIDS SEQUENTIAL SIPS VIA STRAW SIGNIFICANT (10% OR MORE) OF AUDIBLE ASPIRATION (ON 2ND BOLUS/SWALLOW DUE TO DELAYED SWALLOW/LATE CLOSURE OF LARYNGEAL VESTIBULE AND REDUCED BOLUS TRANSPORT). THIN LIQUID WASH TSP X2 AFTER HONEY THICK LIQUID TSP: POSSIBLE AND LIKELY HAD TRACE AUDIBLE ASPIRATION ON 2ND TSP (NO FLUORO) TO CLEAR OP RESIDUE AFTER THE INITIAL SWALLOW. TSPX2 AND CUP: TRACE LARYNGEAL PENETRATION ABOVE VOCAL FOLDS WITH EJECTION NO COUGH AND DUE TO LATE SWALLOW/CLOSURE OF LARYNGEAL VESTIBULE. NECTAR THICK LIQUIDS TSP/CUP NO ASP/PENETRATION STRAW SEQUENTIAL: TRACE SILENT LARYNGEAL PENETRATION ABOVE VOCAL FOLDS WITH EJECTION DUE TO LATE SWALLOW AND LATE/INCOMPLETE CLOSURE OF LARYNGEAL VESTIBULE (ON 2ND SWALLOW). RISK FOR CHRONIC TRACE ASPIRATION BEFORE AND AFTER THE SWALLOW HONEY THICK LIQUIDS TSP ONLY NO ASPIRATION/PENETRATION BUT HAD MORE OROPHARYNGEAL RESIDUE AFTER THE SWALLOW (REQUIRED THIN LIQUID TSPX2 WASH TO CLEAR RESIDUE) RISK FOR CHRONIC TRACE ASPIRATION/PENETRATION AFTER THE SWALLOW FROM POOR SENSATION FOR OROPHARYNGEAL RESIDUE WITH ALL CONSISTENCIES. NOT GIVEN PUREED TSP AND MASTICATED SOLIDS SINCE PT ONLY ON LIQUIDS DUE TO EGD AND UPPER GIB. DEFICITS/COMPONENTS THAT INCREASE ASP/PENETRATION RISK AND REDUCED SWALLOW EFFICIENCY: Oral Impairment Lip Closure (R asymmetry weakness but oral spillage on left but tilts head to L) Tongue Control Bolus prep/mastication Bolus transport/lingual motion Oral residue with reduced sensation for residue (and phlegm in mouth) Init. pharyngeal swallow (2 seconds first at times, longer for consecutive swallows) Pharyngeal Impairment Laryngeal elevation (LE) Anterior hyoid excursion Epiglottic movement Laryng vestibular closure Pharyngeal stripping wave Pharyngoesophageal segment opening Tongue base retraction Pharyngeal residue Decreased pharyngeal sensation ESOPHAGEAL PHASE GROSSLY FUNCTIONAL AND LIMITED VIEW IN LATERAL. TRIAL TX: SOME VARIABLE BENEFIT FROM EXTRA HARD SWALLOW (NEEDED MAX CUES), LIQUID WASH, SMALL AMOUNTS TSP LEVEL, MORE TIME. TENDS TO SPONTANEOUSLY LIFT HIS HEAD SLIGHTLY UP (SOMETIME TO HELP TONGUE WITH A-P TRANSIT AND GRAVITY ASSIST). TENDS TO TILT HEAD TO THE LEFT (COULD BENEFIT FROM PILLOW TO PUT HEAD IN MIDLINE). COULD BENEFIT FROM EFFORTFUL BREATH HOLD AND POSSIBLY CHIN TUCK (POOR FOLLOWING COMMANDS AND CONFUSED). LIKELY UNABLE TO CONSISTENTLY MEET NUTRITION/HYDRATION NEEDS (LIKE PRIOR TO ADMIT) RECOMMENDATIONS: HOLD PO FOR NOW, CONSIDER NONORAL FEEDINGS PRIMARY OR SUPPLEMENT TO PO INTAKE (OR ORAL GRATIFICATION). PATIENT SAID HE WAS IN FAVOR OF DISCUSSING NONORAL FEEDING ALTERNATIVES (TO CONSIDER TEMPORARY NGT 12 STATELESS NOW AND PEG LATER) (ALSO NOTED ON HIS POLST) GIVEN WT LOSS, POSS LUNG INFILTRATE, AND POOR AND SLOW INTAKE. CONTINUE WITH NO PO FOR NOW AND CONTINUE WITH ORAL CARE. CONSIDER RESP THERAPY AND DEEP NASAL SUCTION NEEDED. DYSPHAGIA MANAGEMENT AND TX (PO WITH WELDER EXPERIMENTAL POST EGD). D/W ELSA MAYS AND GI TAR CHASER TAMMIE WHO WILL REACH OUT TO THE FAMILY. D/W REILLY PRATHER REGARDING FORMULA ONLY IF PT IS RECEPTIVE TO TUBE FEEDINGS. LEFT MESSAGE WITH DR BEJARANO UNABLE TO MEET WITH SON WILL TRY TO REACH TODAY. ADDENDUM: PEG PLANNED FOR 05/02/19 GIVEN THE PATIENT HAS MULTIPLE LIVER LESIONS AND WANTS TO HAVE SOME PO, HE SHOULD ALSO RECEIVE ORAL GRATIFICATION OR COMFORT FEEDING FOR QUALITY OF LIFE PURPOSES DIET OF LIQUIFIED PUREED LIKE NECTAR THICK SOUP CONSISTENCY OK TO HAVE THIN LIQUID DRINKS (TSP ONLY FOR NECTAR THICK SOUP AND THIN LIQUIDS) USING OTHER ASP/REFLUX PRECAUTIONS WITH ONE TO ONE FEEDING. (LOW NA DIET TYPE PER RD). EDUCATED/TRAINED ELSA QUEVEDO AND SCOTT JONAS IN FUTURE ORAL GRAT ASPIRATION PRECAUTIONS. WILL LIKELY INITIATE ON SUNDAY. CONTINUE WITH ORAL CARE. Addendum: 05/02/19 at 0904 by KUSHAL GREEN WELDER EXPERIMENTAL SWALLOW STATUS: REVIEWED VIDEO IMAGES OF [facility] BARIUM SWALLOW STUDY WITH ELSA QUEVEDO AND COMPLETED REPORT. PATIENT TO HAVE PEG TODAY. WILL PLAN ON ORAL GRAT ON SUNDAY SINCE PT MAY STILL NEED CLEAR LIQUID DIET. IF PO STARTED, CONSIDER LIQUIFIED PUREED LIKE NECTAR THICK SOUP DIET WITH THIN LIQUIDS (TSP ONLY) USING ASP PRECAUTIONS AND WITH ONE TO ONE FEEDING. PLAN: NONORAL FEEDINGS AND ORAL CARE SKILLED DYSPHAGIA MANAGEMENT AND TX PER PLAN OF CARE IN MOD BARIUM SWALLOW STUDY. ORAL GRAT ON SUNDAY WILL TRY TO CONTACT SON (MISSED YESTERDAY)
[2019-05-02] MEDS: Tamsulosin 0.4mg cap ORAL SCH (09:00)
[2019-05-02] MEDS: Pantoprazole Inj IVP SCH ×2 (09:00→20:14)
--- NOTE | 2019-05-02 09:29 | Immediate Post-Op Evaluation ---
Immediate Post-Op Evalulation Immediate Post-Op Evalulation Procedure: EGD, PEG Date of Evaluation: May 02, 2019 Time of Evaluation: 10:32 IV Fluids: 700 NS Blood Products: 0 Estimated Blood Loss: 7 Urinary Output: 0 Blood Pressure Systolic: 97 Blood Pressure Diastolic: 64 Pulse Rate: 57 Respiratory Rate: 16 O2 Sat by Pulse Oximetry: 96 Temperature (Fahrenheit): 97.2 Pain Score (1-10): 1 Nausea: No Vomiting: No Complications 0 Patient Status: awake, reacts, patent, none Hydration Status: adequate Dion Chowdary MD May 02, 2019 09:29
[2019-05-02] MEDS ORDERED: Lidocaine 1% MPF 10mg/ml 5ml ONE (09:30)
[2019-05-02] MEDS ORDERED: Propofol 200mg/20ml IV ONE (09:30)
[2019-05-02] MEDS ORDERED: LR 1000ml ONE (09:30)
--- NOTE | 2019-05-02 09:30 | 48 Hour Post Anesthesia Eval ---
Post Anesthesia Evaluation Procedure: EGD, PEG Date of Evaluation: May 02, 2019 Time of Evaluation: 12:42 Blood Pressure Systolic: 107 0: 79 Pulse Rate: 82 Respiratory Rate: 18 Temperature (Fahrenheit): 98.2 O2 Sat by Pulse Oximetry: 96 Airway: patent Nausea: No Vomiting: No Pain Intensity: 1 Hydration Status: adequate Cardiopulmonary Status: Stable Mental Status/LOC: patient returned to baseline Follow-up Care/Observations: 0 Post-Anesthesia Complications: 0 Follow-up care needed: N/A Dion Chowdary MD May 02, 2019 09:30
--- NOTE | 2019-05-02 09:43 | NUR ---
NURSE NOTES: pt is stable and left unit for EGD and PEG. Waiting to come back.
--- NOTE | 2019-05-02 09:53 | Pre-Procedure Note/Attestation ---
Pre-Procedure Note/Attestation Complete Prior to Procedure Planned Procedure: not applicable Procedure Narrative: egd/peg Indications for Procedure Pre-Operative Diagnosis: dysphagia Attestation I attest that I discussed the nature of the procedure; its benefits; risks and complications; and alternatives (and the risks and benefits of such alternatives ), prior to the procedure, with the patient (or the patient's legal customer assistance representative). I attest that, if there was a reasonable possibility of needing a blood transfusion, the patient (or the patient's legal customer assistance representative) was given the [facility] standardized written summary, pursuant to the [place] Blood Safety Act ([place] Health and Safety Code # 1645, as amended). I attest that I re-evaluated the patient just prior to the surgery and that there has been no change in the patient's H&P, except as documented below: Martínez Olsen MD May 02, 2019 09:53
--- NOTE | 2019-05-02 10:11 | Endoscopy Procedure Note ---
Endoscopy Procedure Note General Indication for Procedure: dysphagia Procedures Performed: EGD, PEG Operative Findings/Diagnosis: esophageal mass Specimen: yes Pt Tolerated Procedure Well: Yes Estimated Blood Loss: none Anesthesia Anesthesiologist: aime Anesthesia: MAC Inserted Devices Implant(s) used?: No GI Core Measures 50 yrs or older w/o bx or poly: Not Applicable 10yrs. F/U recommended: Not Applicable Martínez Olsen MD May 02, 2019 10:11
--- NOTE | 2019-05-02 11:15 | NUR ---
NURSE NOTES: sputum culture sent to lab, waiting for result.
--- NOTE | 2019-05-02 11:34 | NUR ---
NURSE NOTES: Patient returned to unit s/p EGD and PEG placement. Vital signs stable. No s/s of distress. Report received from Kati Stout RN. Will continue to monitor.
--- NOTE | 2019-05-02 14:00 | NUR ---
NURSE NOTES: Dr BEJARANO visited pt and notified about WBC and other lab results, he will F/U. Will continue to monitor.
--- NOTE | 2019-05-02 14:06 | Pulmonology Progress Note ---
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 adair symptomatic treatment GI f/u aspiration precaution anemia w/u consider hospice and end of life care Subjective ROS Limited/Unobtainable: No Constitutional: Reports: no symptoms HEENT: Repors: no symptoms Allergies: Coded Allergies: BENAZEPRIL (Verified Allergy, Unknown, 04/29/19) PENICILLINS (Verified Allergy, Unknown, 04/29/19) TERAZOSIN (Verified Allergy, Unknown, 04/29/19) Objective Last 24 Hour Vital Signs Date Time Temp Pulse Resp B/P (MAP) Pulse Ox O2 Delivery O2 Flow Rate FiO2 05/02/19 12:00 97.5 89 18 108/67 (81) 96 05/02/19 11:30 98.0 85 19 100/66 (77) 96 05/02/19 11:00 98.6 82 19 97/64 (75) 95 05/02/19 10:55 97.0 86 16 106/72 98 Nasal Cannula 3 05/02/19 10:40 88 17 102/77 99 Nasal Cannula 3 05/02/19 10:30 83 17 100/76 99 Simple Mask 6 05/02/19 10:25 83 19 101/72 100 Simple Mask 6 05/02/19 10:21 97.2 78 16 99/67 100 Simple Mask 6 05/02/19 10:20 82 18 96 05/02/19 10:19 57 16 96 05/02/19 09:00 Nasal Cannula 2.0 05/02/19 08:00 98.3 77 18 114/71 (85) 100 05/02/19 07:30 97 Nasal Cannula 2.0 28 05/02/19 04:00 97.7 87 18 113/66 (82) 96 05/02/19 00:00 97.2 97 22 112/64 (80) 97 05/01/19 21:00 Nasal Cannula 2.0 05/01/19 20:00 97.4 87 18 114/69 (84) 97 05/01/19 19:44 93 05/01/19 16:00 98.1 97 22 110/76 (87) 96 05/01/19 16:00 84 Intake and Output 05/01/19 05/02/19 18:59 06:59 Intake Total 75 ml Output Total 600 ml Balance -525 ml Intake IV Total 75 ml Output Urine Total 600 ml # Voids 1 General Appearance: cachetic HEENT: normocephalic Respiratory/Chest: chest wall non-tender, normal breath sounds Cardiovascular: normal peripheral pulses, regular rhythm Abdomen: normal bowel sounds, no mass Extremities: no cyanosis Skin: no rash Microbiology Date/Time Source Procedure Growth Status 04/29/19 20:00 Blood Blood Culture - Preliminary NO GROWTH AFTER 48 HOURS Resulted 04/29/19 19:45 Blood Blood Culture - Preliminary NO GROWTH AFTER 48 HOURS Resulted 04/29/19 19:45 Nasal Nares MRSA Culture - Final NO METHICILLIN RESISTANT STAPH AUREUS... Complete 04/29/19 20:45 Urine,Clean Catch Urine Culture - Final Gram Negative Scott Complete 04/29/19 19:45 Rectum - Final NO CARBAPENEM-RESISTANT ENTEROBACTERI... Complete 04/29/19 19:45 Rectum VRE Culture - Final Enterococcus Faecium - Vre Complete Laboratory Tests 05/02/19 04:57: White Blood Count 15.7H, Red Blood Count 4.73, Hemoglobin 12.5L, Hematocrit 38.9L, Mean Corpuscular Volume 82, Mean Corpuscular Hemoglobin 26.4L, Mean Corpuscular Hemoglobin Concent 32.1, Red Cell Distribution Width 14.4, Platelet Count 257, Mean Platelet Volume 6.3L, Neutrophils (%) (Auto) , Lymphocytes (%) ( Auto) , Monocytes (%) (Auto) , Eosinophils (%) (Auto) , Basophils (%) (Auto) , Differential Total Cells Counted 100, Neutrophils % (Manual) 90H, Lymphocytes % (Manual) 8L, Monocytes % (Manual) 1, Eosinophils % (Manual) 1, Basophils % ( Manual) 0, Band Neutrophils 0, Platelet Estimate Adequate, Platelet Morphology Normal, Erythrocyte Sedimentation Rate 42H, Reticulocyte Count 1.2, Prothrombin Time 11.4, Prothromb Time International Ratio 1.1, Activated Partial Thromboplast Time 27, Sodium Level 150H, Potassium Level 4.2, Chloride Level 118H, Carbon Dioxide Level 24, Anion Gap 8, Blood Urea Nitrogen 18, Creatinine 1.4H, Estimat Glomerular Filtration Rate , Glucose Level 123H, Calcium Level 7.9L, Iron Level 17L, Total Iron Binding Capacity 102L, Percent Iron Saturation 17, Unsaturated Iron Binding 85L, Lactate Dehydrogenase 683H, Carcinoembryonic Antigen [Pending], Vitamin B12 Level > 2000H, Folate 6.6L Current Medications Medications (Trade) Dose Ordered Sig/Eric Route PRN Reason Start Time Stop Time Status Last Admin Dose Admin Acetaminophen (Tylenol) 650 mg Q4H PRN ORAL fever 05/02/19 04:30 05/29/19 04:29 Barium Sulfate (Readi-Cat 2) 450 ml NOW PRN ORAL Radiology Procedure 05/02/19 04:30 05/03/19 04:29 Barium Sulfate (Varibar Honey) 250 ml NOW PRN MC RAD 05/02/19 04:30 05/03/19 04:29 Barium Sulfate (Varibar [place]) 240 ml NOW PRN MC RAD 05/02/19 04:30 05/03/19 04:29 Barium Sulfate (Varibar Pudding) 230 ml NOW PRN MC RAD 05/02/19 04:30 05/03/19 04:29 Ciprofloxacin 200 ml @ 200 mls/hr ONCE IV 05/02/19 08:00 05/02/19 15:00 05/02/19 08:43 Dextrose (Dextrose 50%) 25 ml Q30M PRN IV Hypoglycemia 05/02/19 04:45 05/29/19 21:14 Dextrose (Dextrose 50%) 50 ml Q30M PRN IV Hypoglycemia 05/02/19 04:45 05/29/19 21:14 Dextrose/Sodium Chloride 1,000 ml @ 75 mls/hr [id number] IV 05/02/19 04:30 05/29/19 10:59 05/02/19 12:06 Diphenhydramine HCl (Benadryl) 25 mg Q6H PRN ORAL Itching/Pruritis 05/02/19 04:30 05/30/19 04:29 Finasteride (Proscar) 5 mg DAILY ORAL 05/02/19 09:00 05/30/19 08:59 Iohexol (OMNIPAQUE-300 100ml) 100 ml NOW PRN INJ Radiology Procedure 05/02/19 04:30 05/03/19 04:29 Nitroglycerin (Ntg) 0.4 mg Q5M X 3 DOSES PRN SL Prn Chest Pain 05/02/19 04:30 05/29/19 21:14 Ondansetron HCl (Zofran) 4 mg Q6H PRN IVP Nausea & Vomiting 05/02/19 04:30 05/30/19 04:29 Pantoprazole (Protonix) 40 mg EVERY 12 HOURS IVP 05/02/19 09:00 05/30/19 20:59 Promethazine HCl/ Codeine (Phenergan with Codeine) 5 ml Q4H PRN ORAL For Cough 05/02/19 04:30 05/30/19 04:29 Tamsulosin HCl (Flomax) 0.4 mg DAILY ORAL 05/02/19 09:00 05/30/19 08:59 Temazepam (Restoril) 15 mg HSPRN PRN ORAL Insomnia 05/02/19 20:00 05/07/19 19:59 Octavia Morse MD May 02, 2019 14:05
--- NOTE | 2019-05-02 14:50 | Cardiology Report ---
APPROVED REPORT EKG Measurement Heart [id number] ME [id number] [id number] Normal sinus rhythm Low voltage QRS Nonspecific ST and T wave abnormality Abnormal ECG
--- NOTE | 2019-05-02 14:57 | Diagnostic Imaging Report ---
Indication: Dysphagia Procedure and findings: A single sound engineering technician fluoroscopic image of the neck performed in the lateral projection followed by real-time fluoroscopic video/cine imaging performed in a lateral projection in conjunction with the speech pathologist evaluation. Variable consistencies of barium given per mouth. Findings: Significant abnormalities of both oral and pharyngeal phases of swallowing are demonstrated. Total fluoroscopic time: 254 seconds. Total number of fluoroscopic images obtained: 11 as well as multiple video fluoroscopic sequences Thin liquid showing significant audible aspiration. [place]/thick showing laryngeal penetration. No definite aspiration. Abnormal video swallow. Please refer to speech pathology evaluation for more information.
--- NOTE | 2019-05-02 15:07 | NUR ---
NURSE NOTES: DAVID CHO visited pt and ordered to start g tube feeding at 1500.; noted and carried out. will continue to monitor.
--- NOTE | 2019-05-02 15:48 | NUR ---
NURSE NOTES: Dr BEJARANO notified about BP, ordered NS once bolus. noted and carried out. will continue to monitor.
--- NOTE | 2019-05-02 16:15 | Procedure Note ---
DATE OF PROCEDURE: 05/02/2019 SURGEON: Martínez Olsen M.D. REFERRING PHYSICIAN: Dionte Duenas M.D. PROCEDURES: Upper endoscopy with biopsy and PEG placement. ANESTHESIA: Per Dr. Chowdary. INSTRUMENT: Olympus flexible adult upper endoscope. INDICATION: Dysphagia. REASON FOR PROCEDURE: The procedure, risks, benefits, and possible consequences, including hemorrhage, aspiration, perforation and infection, and alternative treatments, were explained to the patient/legal guardian by Dr. Martínez Olsen and the patient/legal guardian understood and accepted these risks. PROCEDURE IN DETAIL: After informed consent was obtained and the patient was adequately sedated, Olympus upper endoscope was advanced from mouth into the second portion of duodenum and retroflexion was performed in the stomach. The patient had large mass in the esophagus. Bleeding starting from [address] down to the GE junction at about 38 cm. This is most probably the cause of hematemesis and metastasis. Biopsy of this mass was obtained for diagnosis. The patient also had multiple gastric polyps with polyps, but they were not biopsied. Then, under endoscopic guidance, under sterile condition, a 20-Macedonian pull type of G-tube was successfully placed in epigastric area. The distance from the tip of the tube to skin was about 2.5 cm in size. The patient tolerated the procedure very well without any complication. SUMMARY OF FINDINGS: 1. Large esophageal mass, highly suspicious for adenocarcinoma, status post biopsy, see above for details. 2. Multiple gastric polyps. 3. Status post successful PEG placement. RECOMMENDATIONS: 1. Abdominal binder. 2. Elevate the head of the bed at all times. 3. G-tube flush. 4. G-tube care. 5. Start tube feeding later today. I want to thank, Dr. Duenas, for this kind referral. Martínez Olsen M.D. DR: SHANNAN JOB#: [id number] CC: Dionte Duenas M.D.; Fax#: [phone]
--- NOTE | 2019-05-02 17:10 | NUR ---
NURSE NOTES: Consent form for CT SCAN WITH CONTRAST gotten from brother CHRIS MENDOZA with witness AJ PARIKH. Will continue to monitor.
--- NOTE | 2019-05-02 17:24 | Infectious Diseases Prog Note ---
Assessment/Plan Assessment/Plan # [id number] Subjective Allergies: Coded Allergies: BENAZEPRIL (Verified Allergy, Unknown, 04/29/19) PENICILLINS (Verified Allergy, Unknown, 04/29/19) TERAZOSIN (Verified Allergy, Unknown, 04/29/19) Objective Vital Signs Last 24 Hour Vital Signs Date Time Temp Pulse Resp B/P (MAP) Pulse Ox O2 Delivery O2 Flow Rate FiO2 05/02/19 15:45 97.9 78 17 93/56 (68) 95 05/02/19 12:30 97.7 84 20 110/66 (81) 95 05/02/19 12:00 97.5 89 18 108/67 (81) 96 05/02/19 11:30 98.0 85 19 100/66 (77) 96 05/02/19 11:00 98.6 82 19 97/64 (75) 95 05/02/19 10:55 97.0 86 16 106/72 98 Nasal Cannula 3 05/02/19 10:40 88 17 102/77 99 Nasal Cannula 3 05/02/19 10:30 83 17 100/76 99 Simple Mask 6 05/02/19 10:25 83 19 101/72 100 Simple Mask 6 05/02/19 10:21 97.2 78 16 99/67 100 Simple Mask 6 05/02/19 10:20 82 18 96 05/02/19 10:19 57 16 96 05/02/19 09:00 Nasal Cannula 2.0 05/02/19 08:00 98.3 77 18 114/71 (85) 100 05/02/19 07:30 97 Nasal Cannula 2.0 28 05/02/19 04:00 97.7 87 18 113/66 (82) 96 05/02/19 00:00 97.2 97 22 112/64 (80) 97 05/01/19 21:00 Nasal Cannula 2.0 05/01/19 20:00 97.4 87 18 114/69 (84) 97 05/01/19 19:44 93 Height (Feet): 5 Height (Inches): 10.00 Weight (Pounds): 153 Microbiology Date/Time Source Procedure Growth Status 04/29/19 20:00 Blood Blood Culture - Preliminary NO GROWTH AFTER 48 HOURS Resulted 04/29/19 19:45 Blood Blood Culture - Preliminary NO GROWTH AFTER 48 HOURS Resulted 04/29/19 19:45 Nasal Nares MRSA Culture - Final NO METHICILLIN RESISTANT STAPH AUREUS... Complete 04/29/19 20:45 Urine,Clean Catch Urine Culture - Final Gram Negative Scott Complete 04/29/19 19:45 Rectum - Final NO CARBAPENEM-RESISTANT ENTEROBACTERI... Complete 04/29/19 19:45 Rectum VRE Culture - Final Enterococcus Faecium - Vre Complete Laboratory Tests Test 05/02/19 04:57 White Blood Count 15.7 K/UL (4.8-10.8) H Red Blood Count 4.73 M/UL (4.70-6.10) Hemoglobin 12.5 G/DL (14.2-18.0) L Hematocrit 38.9 % (42.0-52.0) L Mean Corpuscular Volume 82 FL (80-99) Mean Corpuscular Hemoglobin 26.4 PG (27.0-31.0) L Mean Corpuscular Hemoglobin Concent 32.1 G/DL (32.0-36.0) Red Cell Distribution Width 14.4 % (11.6-14.8) Platelet Count 257 K/UL (150-450) Mean Platelet Volume 6.3 FL (6.5-10.1) L Neutrophils (%) (Auto) % (45.0-75.0) Lymphocytes (%) (Auto) % (20.0-45.0) Monocytes (%) (Auto) % (1.0-10.0) Eosinophils (%) (Auto) % (0.0-3.0) Basophils (%) (Auto) % (0.0-2.0) Differential Total Cells Counted 100 Neutrophils % (Manual) 90 % (45-75) H Lymphocytes % (Manual) 8 % (20-45) L Monocytes % (Manual) 1 % (1-10) Eosinophils % (Manual) 1 % (0-3) Basophils % (Manual) 0 % (0-2) Band Neutrophils 0 % (0-8) Platelet Estimate Adequate Platelet Morphology Normal Erythrocyte Sedimentation Rate 42 MM/HR (0-20) H Reticulocyte Count 1.2 % (0.5-2.0) Prothrombin Time 11.4 SEC (9.30-11.50) Prothromb Time International Ratio 1.1 (0.9-1.1) Activated Partial Thromboplast Time 27 SEC (23-33) Sodium Level 150 MMOL/L (136-145) H Potassium Level 4.2 MMOL/L (3.5-5.1) Chloride Level 118 MMOL/L (98-107) H Carbon Dioxide Level 24 MMOL/L (21-32) Anion Gap 8 mmol/L (5-15) Blood Urea Nitrogen 18 mg/dL (7-18) Creatinine 1.4 MG/DL (0.55-1.30) H Estimat Glomerular Filtration Rate mL/min (>60) Glucose Level 123 MG/DL (74-106) H Calcium Level 7.9 MG/DL (8.5-10.1) L Iron Level 17 ug/dL (50-175) L Total Iron Binding Capacity 102 ug/dL (250-450) L Percent Iron Saturation 17 % (15-50) Unsaturated Iron Binding 85 ug/dL (112-346) L Lactate Dehydrogenase 683 U/L (81-234) H Carcinoembryonic Antigen Pending Vitamin B12 Level > 2000 PG/ML (193-986) H Folate 6.6 NG/ML (8.6-58.9) L Current Medications Medications (Trade) Dose Ordered Sig/Eric Route PRN Reason Start Time Stop Time Status Last Admin Dose Admin Acetaminophen (Tylenol) 650 mg Q4H PRN ORAL fever 05/02/19 04:30 05/29/19 04:29 Barium Sulfate (Readi-Cat 2) 450 ml NOW PRN ORAL Radiology Procedure 05/02/19 04:30 05/03/19 04:29 Barium Sulfate (Varibar Honey) 250 ml NOW PRN MC RAD 05/02/19 04:30 05/03/19 04:29 Barium Sulfate (Varibar [place]) 240 ml NOW PRN MC RAD 05/02/19 04:30 05/03/19 04:29 Barium Sulfate (Varibar Pudding) 230 ml NOW PRN MC RAD 05/02/19 04:30 05/03/19 04:29 Dextrose (Dextrose 50%) 25 ml Q30M PRN IV Hypoglycemia 05/02/19 04:45 05/29/19 21:14 Dextrose (Dextrose 50%) 50 ml Q30M PRN IV Hypoglycemia 05/02/19 04:45 05/29/19 21:14 Dextrose/Sodium Chloride 1,000 ml @ 75 mls/hr [id number] IV 05/02/19 04:30 05/29/19 10:59 05/02/19 12:06 Diphenhydramine HCl (Benadryl) 25 mg Q6H PRN ORAL Itching/Pruritis 05/02/19 04:30 05/30/19 04:29 Finasteride (Proscar) 5 mg DAILY ORAL 05/02/19 09:00 05/30/19 08:59 Iohexol (OMNIPAQUE-300 100ml) 100 ml NOW PRN INJ Radiology Procedure 05/02/19 04:30 05/03/19 04:29 Nitroglycerin (Ntg) 0.4 mg Q5M X 3 DOSES PRN SL Prn Chest Pain 05/02/19 04:30 05/29/19 21:14 Ondansetron HCl (Zofran) 4 mg Q6H PRN IVP Nausea & Vomiting 05/02/19 04:30 05/30/19 04:29 Pantoprazole (Protonix) 40 mg EVERY 12 HOURS IVP 05/02/19 09:00 05/30/19 20:59 Promethazine HCl/ Codeine (Phenergan with Codeine) 5 ml Q4H PRN ORAL For Cough 05/02/19 04:30 05/30/19 04:29 Tamsulosin HCl (Flomax) 0.4 mg DAILY ORAL 05/02/19 09:00 05/30/19 08:59 Temazepam (Restoril) 15 mg HSPRN PRN ORAL Insomnia 05/02/19 20:00 05/07/19 19:59 Jonah Noble MD May 02, 2019 17:24
[2019-05-02] MEDS: Ertapenem 1 GM in NS 55 ML IVPB SCH (18:19)
--- NOTE | 2019-05-02 18:45 | Consultation ---
DATE OF CONSULTATION: 05/02/2019 INFECTIOUS DISEASE CONSULTATION CONSULTING PHYSICIAN: Jonah Noble M.D. REFERRING PHYSICIAN: Octavia Morse M.D. REASON FOR CONSULTATION: Evaluation of the patient for leukocytosis and possible sepsis and antibiotic management. HISTORY OF PRESENT ILLNESS: The patient is a 74-year-old male, who is a resident of a retirement facility, who was admitted to this medical center due to coffee-grounds emesis. The patient was found to have persistent leukocytosis. The patient underwent a G-tube placement and upper endoscopy. Infectious Diseases consultation has been requested for further evaluation of the patient and antibiotic management. PAST MEDICAL HISTORY: 1. Significant for GERD. 2. Hyperlipidemia. 3. Hypertension. 4. BPH. MEDICATIONS: Currently off of antibiotics. ALLERGIES: Penicillin, benazepril, and terazosin. FAMILY HISTORY: Unavailable. SOCIAL HISTORY: [facility] REVIEW OF SYSTEM: A 10-point review of systems was done and except what was mentioned above has been negative. PHYSICAL EXAMINATION: VITAL SIGNS: Temperature 97.5, pulse 78, respiratory rate 17, and blood pressure 92/56. HEENT: Mild pale conjunctivae. No icterus. NECK: No lymphadenopathy. CHEST: Clear. HEART: S1 and S2. ABDOMEN: Soft. G-tube in place. EXTREMITIES: No cyanosis. NEUROLOGIC: Awake and alert. Lethargic. LABORATORY AND DIAGNOSTIC DATA: White blood cells 15.7, hemoglobin 12.5, and platelets 257,000. UA shows 5 to 10 white blood cells and 2 to 4 red blood cells. BUN 18 and creatinine 1.4. AST 209, ALT 70, and alkaline phosphatase 1296. Bilirubin total 1.8. Urine culture less than 10,000 colony of gram-negative rods. Blood culture is pending. abnormal abdominal MRI, multiple lesions in the liver consistent with metastatic neoplasm, kidney bilateral renal cysts. Venous Doppler is negative for DVT. Chest x-ray showed left lung base infiltrate versus atelectasis. ASSESSMENT: The patient is a 74-year-old male with, 1. Leukocytosis. 2. Probable aspiration pneumonia. 3. Status post coffee-grounds emesis. 4. Probable liver mets. 5. Leukocytosis possibly due to aspiration pneumonia versus metastatic process. 6. EGD showed esophageal mass ? esophageal cancer. PLAN: 1. We will start the patient is on Zosyn empirically (the patient's white blood cell have now improved, we may stop antibiotic treatment soon). 2. Monitor CBC. 3. Monitor BMP. 4. Monitor cultures (blood, sputum). 5. We will follow the endoscopic findings. Final report pending. 6. We will follow GI recommendations. 7. Based on the patient's clinical course and labs, we will do further recommendations. Jonah Noble M.D. DR: ADRIANA JOB#: [id number] CC:
--- NOTE | 2019-05-02 18:46 | Internal Med Progress Note ---
Subjective Physician Name Dionte Duenas Attending Physician Dionte Duenas MD Current Medications Medications (Trade) Dose Ordered Sig/Eric Route PRN Reason Start Time Stop Time Status Last Admin Dose Admin Acetaminophen (Tylenol) 650 mg Q4H PRN ORAL fever 05/02/19 04:30 05/29/19 04:29 Barium Sulfate (Readi-Cat 2) 450 ml NOW PRN ORAL Radiology Procedure 05/02/19 04:30 05/03/19 04:29 Barium Sulfate (Varibar Honey) 250 ml NOW PRN MC RAD 05/02/19 04:30 05/03/19 04:29 Barium Sulfate (Varibar [place]) 240 ml NOW PRN MC RAD 05/02/19 04:30 05/03/19 04:29 Barium Sulfate (Varibar Pudding) 230 ml NOW PRN MC RAD 05/02/19 04:30 05/03/19 04:29 Dextrose (Dextrose 50%) 25 ml Q30M PRN IV Hypoglycemia 05/02/19 04:45 05/29/19 21:14 Dextrose (Dextrose 50%) 50 ml Q30M PRN IV Hypoglycemia 05/02/19 04:45 05/29/19 21:14 Dextrose/Sodium Chloride 1,000 ml @ 75 mls/hr [id number] IV 05/02/19 04:30 05/29/19 10:59 05/02/19 12:06 Diphenhydramine HCl (Benadryl) 25 mg Q6H PRN ORAL Itching/Pruritis 05/02/19 04:30 05/30/19 04:29 Ertapenem 1 gm/ Sodium Chloride 55 ml @ 110 mls/hr Q24H IVPB 05/02/19 18:00 05/07/19 17:59 05/02/19 18:19 Finasteride (Proscar) 5 mg DAILY ORAL 05/02/19 09:00 05/30/19 08:59 Iohexol (OMNIPAQUE-300 100ml) 100 ml NOW PRN INJ Radiology Procedure 05/02/19 04:30 05/03/19 04:29 Nitroglycerin (Ntg) 0.4 mg Q5M X 3 DOSES PRN SL Prn Chest Pain 05/02/19 04:30 05/29/19 21:14 Ondansetron HCl (Zofran) 4 mg Q6H PRN IVP Nausea & Vomiting 05/02/19 04:30 05/30/19 04:29 Pantoprazole (Protonix) 40 mg EVERY 12 HOURS IVP 05/02/19 09:00 05/30/19 20:59 Promethazine HCl/ Codeine (Phenergan with Codeine) 5 ml Q4H PRN ORAL For Cough 05/02/19 04:30 05/30/19 04:29 Tamsulosin HCl (Flomax) 0.4 mg DAILY ORAL 05/02/19 09:00 05/30/19 08:59 Temazepam (Restoril) 15 mg HSPRN PRN ORAL Insomnia 05/02/19 20:00 05/07/19 19:59 Allergies: Coded Allergies: BENAZEPRIL (Verified Allergy, Unknown, 04/29/19) PENICILLINS (Verified Allergy, Unknown, 04/29/19) TERAZOSIN (Verified Allergy, Unknown, 04/29/19) Subjective Awake, alert, responsive, vert weak and malnutrition, NAD, No Nausea or Vomiting Objective Last Vital Signs Date Time Temp Pulse Resp B/P (MAP) Pulse Ox O2 Delivery O2 Flow Rate FiO2 05/02/19 15:45 97.9 78 17 93/56 (68) 95 05/02/19 10:55 Nasal Cannula 3 05/02/19 07:30 28 Laboratory Tests Test 05/02/19 04:57 White Blood Count 15.7 K/UL (4.8-10.8) H Red Blood Count 4.73 M/UL (4.70-6.10) Hemoglobin 12.5 G/DL (14.2-18.0) L Hematocrit 38.9 % (42.0-52.0) L Mean Corpuscular Volume 82 FL (80-99) Mean Corpuscular Hemoglobin 26.4 PG (27.0-31.0) L Mean Corpuscular Hemoglobin Concent 32.1 G/DL (32.0-36.0) Red Cell Distribution Width 14.4 % (11.6-14.8) Platelet Count 257 K/UL (150-450) Mean Platelet Volume 6.3 FL (6.5-10.1) L Neutrophils (%) (Auto) % (45.0-75.0) Lymphocytes (%) (Auto) % (20.0-45.0) Monocytes (%) (Auto) % (1.0-10.0) Eosinophils (%) (Auto) % (0.0-3.0) Basophils (%) (Auto) % (0.0-2.0) Differential Total Cells Counted 100 Neutrophils % (Manual) 90 % (45-75) H Lymphocytes % (Manual) 8 % (20-45) L Monocytes % (Manual) 1 % (1-10) Eosinophils % (Manual) 1 % (0-3) Basophils % (Manual) 0 % (0-2) Band Neutrophils 0 % (0-8) Platelet Estimate Adequate Platelet Morphology Normal Erythrocyte Sedimentation Rate 42 MM/HR (0-20) H Reticulocyte Count 1.2 % (0.5-2.0) Prothrombin Time 11.4 SEC (9.30-11.50) Prothromb Time International Ratio 1.1 (0.9-1.1) Activated Partial Thromboplast Time 27 SEC (23-33) Sodium Level 150 MMOL/L (136-145) H Potassium Level 4.2 MMOL/L (3.5-5.1) Chloride Level 118 MMOL/L (98-107) H Carbon Dioxide Level 24 MMOL/L (21-32) Anion Gap 8 mmol/L (5-15) Blood Urea Nitrogen 18 mg/dL (7-18) Creatinine 1.4 MG/DL (0.55-1.30) H Estimat Glomerular Filtration Rate mL/min (>60) Glucose Level 123 MG/DL (74-106) H Calcium Level 7.9 MG/DL (8.5-10.1) L Iron Level 17 ug/dL (50-175) L Total Iron Binding Capacity 102 ug/dL (250-450) L Percent Iron Saturation 17 % (15-50) Unsaturated Iron Binding 85 ug/dL (112-346) L Lactate Dehydrogenase 683 U/L (81-234) H Carcinoembryonic Antigen Pending Vitamin B12 Level > 2000 PG/ML (193-986) H Folate 6.6 NG/ML (8.6-58.9) L Microbiology Date/Time Source Procedure Growth Status 04/29/19 20:00 Blood Blood Culture - Preliminary NO GROWTH AFTER 48 HOURS Resulted 04/29/19 19:45 Blood Blood Culture - Preliminary NO GROWTH AFTER 48 HOURS Resulted 04/29/19 19:45 Nasal Nares MRSA Culture - Final NO METHICILLIN RESISTANT STAPH AUREUS... Complete 04/29/19 20:45 Urine,Clean Catch Urine Culture - Final Gram Negative Scott Complete 04/29/19 19:45 Rectum - Final NO CARBAPENEM-RESISTANT ENTEROBACTERI... Complete 04/29/19 19:45 Rectum VRE Culture - Final Enterococcus Faecium - Vre Complete Intake and Output 05/01/19 05/02/19 19:00 07:00 Intake Total 150 ml Output Total 600 ml Balance -450 ml IV Total 150 ml Output Urine Total 600 ml # Voids 1 Objective General: No acute distress, awake and alert, Cachexia. HEENT: NCAT, sclera anicteric, PERRL, EOMI. Neck: Supple, no significant jugular venous distention, Lungs: Fair inspiratory effort, decrease air at bases, no Wheeze or Rales. Heart: Regular rate and rhythm, normal S1/S2, no murmurs Abdomen: soft, nontender, nondistended. Normoactive bowel sounds, PEG site intact.. Extremities: No Cyanosis , clubbing or edema. Neuro: A&O x 3, Able to move all extremities slowly Skin: warm, no rash Psych: Normal mood and affect Assessment/Plan Assessment/Plan 1. Upper gastrointestinal hemorrhage. 2. Elevated liver enzymes. 3. Liver masses. 4. Gastroesophageal reflux disease. 5. Hypercholesterolemia. 6. Hypertension. 7. Benign prostatic hypertrophy. 8. Pneumonia 9. 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 10. Sever protein calori malnutrition 11. Dysphagia s/p PEG (05/02/2019) TREATMENT: 1. Elevated liver enzymes/upper gastrointestinal hemorrhage. Gastroenterology consultation obtained with Dr. Martínez Olsen. An endoscopy has been scheduled. We will follow recommendations of Gastroenterology. Elevated liver enzymes may be secondary to liver masses secondary to metastatic disease. 2. Liver masses. See discussion above. 3. Gastroesophageal reflux disease. on Protonix. 4. Hypercholesterolemia. Continue atorvastatin. 5. Hypertension. The patient is currently hypotensive due to hypovolemia. 6. Benign prostatic hypertrophy. Continue Flomax as above. 7. ABX: Ertapenem IV S/P PEG today start Tube feeding @ 20 cc/hr IVF @ 75 cc/hr Monitor Labs Dionte Duenas MD May 02, 2019 18:46
--- NOTE | 2019-05-02 19:11 | NUR ---
CASE MANAGEMENT: REVIEW SI: UPPER GI BLEED . DYSPHAGIA EGD / PEG 05/02 T 97.5 HR 89 RR 19 BP 93/56 SAT 98% NC/3L WBC 15.7 H/H 12.5/38.9 IS: ERTAPENEM IV Q24HR PROSCAR PO QD PROTONIX IV Q12HR FLOMAX PO QD MED/SURG STATUS DCP: PATIENT IS FROM [facility]
--- NOTE | 2019-05-02 19:22 | NUR ---
HAND-OFF: Report given to LÁZARO HUNTER. Endorsed to monitor BP.
--- NOTE | 2019-05-02 19:45 | NUR ---
NURSE NOTES: PATIENT IN BED, AWAKE. NO S/S RESPIRATORY DISTRESS NOTED. NO S/S PAIN NOTED PER FLACC SCALE. ON GT FEEDING, HAS ABDOMINAL BINDER. HOB ELEVATED, BED IN LOWEST POSITION, CALL LIGHT WITHIN REACH, BED ALARM ON. WILL CONTINUE TO MONITOR.
--- NOTE | 2019-05-02 22:13 | NUR ---
NURSE NOTES: PATIENT OBSERVED TO BE TRYING TO PULL OUT GTUBE. CALLED AND SPOKE WITH DR. MARIANO AND RECEIVED ORDERED FOR BILATERAL SOFT WRIST RESTRAINTS. ORDER CARRIED OUT. CHARGE NURSE AWARE.
[2019-05-03] VITALS: BP 95/66
--- NOTE | 2019-05-03 01:40 | NUR ---
HAND-OFF: Report given to CHELLE CHATMAN RN.
--- NOTE | 2019-05-03 01:45 | NUR ---
NURSE NOTES: PATIENT IN BED, AWAKE. NO S/S RESPIRATORY DISTRESS NOTED. NO S/S PAIN NOTED PER FLACC SCALE, pt denies pain. GT in place, feeding held due to CT abdomen in the morning. HAS ABDOMINAL BINDER on. HOB ELEVATED, BED IN LOWEST POSITION, CALL LIGHT WITHIN REACH, BED ALARM ON, side rails x2, bilateral soft wrist restraints on due to patient trying to pull out GTube. Skin beneath intact. WILL CONTINUE TO MONITOR.
[2019-05-03 04:00] VITALS: BP 122/78
[2019-05-03] MEDS: D5NS 1,000 ML IV SCH (05:19)
--- NOTE | 2019-05-03 07:29 | Pulmonology Progress Note ---
Assessment/Plan Problems: (1) Primary cancer of esophagus with metastasis to other site (2) LLL pneumonia (3) UGIB (upper gastrointestinal bleed) (4) At high risk for aspiration (5) Benign prostatic hyperplasia (6) Chronic renal insufficiency (7) History of hypertension (8) Normal pressure hydrocephalus (9) Elevated LFTs (10) Severe malnutrition Assessment/Plan all reviewed tolerating Gtube feeding symptomatic treatment GI f/u aspiration precaution anemia w/u consider hospice and end of life care Subjective ROS Limited/Unobtainable: No Constitutional: Reports: no symptoms HEENT: Repors: no symptoms Respiratory: Reports: no symptoms Allergies: Coded Allergies: BENAZEPRIL (Verified Allergy, Unknown, 04/29/19) PENICILLINS (Verified Allergy, Unknown, 04/29/19) TERAZOSIN (Verified Allergy, Unknown, 04/29/19) Objective Last 24 Hour Vital Signs Date Time Temp Pulse Resp B/P (MAP) Pulse Ox O2 Delivery O2 Flow Rate FiO2 05/03/19 04:00 97.1 102 20 122/78 (93) 94 05/03/19 00:00 96.5 102 22 95/66 (76) 95 05/02/19 23:55 Nasal Cannula 2.0 05/02/19 20:59 114 05/02/19 20:07 95 Nasal Cannula 2.0 28 05/02/19 20:00 96.0 119 24 105/70 (82) 94 05/02/19 18:00 101/67 (78) 05/02/19 15:45 97.9 78 17 93/56 (68) 95 05/02/19 12:30 97.7 84 20 110/66 (81) 95 05/02/19 12:00 97.5 89 18 108/67 (81) 96 05/02/19 11:30 98.0 85 19 100/66 (77) 96 05/02/19 11:00 98.6 82 19 97/64 (75) 95 05/02/19 10:55 97.0 86 16 106/72 98 Nasal Cannula 3 05/02/19 10:40 88 17 102/77 99 Nasal Cannula 3 05/02/19 10:30 83 17 100/76 99 Simple Mask 6 05/02/19 10:25 83 19 101/72 100 Simple Mask 6 05/02/19 10:21 97.2 78 16 99/67 100 Simple Mask 6 05/02/19 10:20 82 18 96 05/02/19 10:19 57 16 96 05/02/19 09:00 Nasal Cannula 2.0 05/02/19 08:00 98.3 77 18 114/71 (85) 100 05/02/19 07:30 97 Nasal Cannula 2.0 28 Intake and Output 05/02/19 05/03/19 19:00 07:00 Intake Total 2540 ml 665 ml Output Total 0 ml 2 ml Balance 2540 ml 663 ml Intake Free Water 150 ml 150 ml IV Total 2330 ml 375 ml Tube Feeding 60 ml 140 ml Output Urine Total 2 ml Estimated Blood Loss 0 ml General Appearance: WD/WN HEENT: normocephalic, anicteric Respiratory/Chest: chest wall non-tender, normal breath sounds Cardiovascular: normal peripheral pulses, normal rate Abdomen: normal bowel sounds, no organomegaly Genitourinary: normal external genitalia 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, abnormal gait Lymphatic: no neck adenopathy Microbiology Date/Time Source Procedure Growth Status 05/02/19 11:15 Sputum Gram Stain - Final Resulted 05/02/19 11:15 Sputum Sputum Culture - Preliminary NO GROWTH Resulted Current Medications Medications (Trade) Dose Ordered Sig/Eric Route PRN Reason Start Time Stop Time Status Last Admin Dose Admin Acetaminophen (Tylenol) 650 mg Q4H PRN ORAL fever 05/02/19 04:30 05/29/19 04:29 Dextrose (Dextrose 50%) 25 ml Q30M PRN IV Hypoglycemia 05/02/19 04:45 05/29/19 21:14 Dextrose (Dextrose 50%) 50 ml Q30M PRN IV Hypoglycemia 05/02/19 04:45 05/29/19 21:14 Dextrose/Sodium Chloride 1,000 ml @ 75 mls/hr [id number] IV 05/02/19 04:30 05/29/19 10:59 05/03/19 05:19 Diphenhydramine HCl (Benadryl) 25 mg Q6H PRN ORAL Itching/Pruritis 05/02/19 04:30 05/30/19 04:29 Ertapenem 1 gm/ Sodium Chloride 55 ml @ 110 mls/hr Q24H IVPB 05/02/19 18:00 05/07/19 17:59 10/4/19 18:19 Finasteride (Proscar) 5 mg DAILY ORAL 05/02/19 09:00 05/30/19 08:59 Nitroglycerin (Ntg) 0.4 mg Q5M X 3 DOSES PRN SL Prn Chest Pain 05/02/19 04:30 05/29/19 21:14 Ondansetron HCl (Zofran) 4 mg Q6H PRN IVP Nausea & Vomiting 05/02/19 04:30 05/30/19 04:29 Pantoprazole (Protonix) 40 mg EVERY 12 HOURS IVP 05/02/19 09:00 05/30/19 20:59 05/02/19 20:14 Promethazine HCl/ Codeine (Phenergan with Codeine) 5 ml Q4H PRN ORAL For Cough 05/02/19 04:30 05/30/19 04:29 Tamsulosin HCl (Flomax) 0.4 mg DAILY ORAL 05/02/19 09:00 05/30/19 08:59 Temazepam (Restoril) 15 mg HSPRN PRN ORAL Insomnia 05/02/19 20:00 05/07/19 19:59 Octavia Morse MD May 03, 2019 07:29
--- NOTE | 2019-05-03 07:38 | NUR ---
HAND-OFF: Report given to ELSA Frausto .
--- NOTE | 2019-05-03 07:46 | NUR ---
NURSE NOTES: received report from ELSA Glynn. patient in bed. sleeping. no respiratory distress noted. no facial grimacing noted. stop gtf d/t CT abd today. HOB at all times. IV on LFA22 g. running fluid. cotact isolation. PPE at all times. bed in the lowest position. call light within reach. alarm on. will continue to provide plan of care.
[2019-05-03 08:00] VITALS: BP 94/50
[2019-05-03] MEDS: Tamsulosin 0.4mg cap ORAL SCH (08:51)
[2019-05-03] MEDS: Pantoprazole Inj IVP SCH ×2 (08:51→20:43)
--- NOTE | 2019-05-03 09:30 | NUR ---
NURSE NOTES: CT staffs brought liquid contrast for CT scan. patient both have IV and oral contrast. consent in the chart. RN administered oral contrast via GT. HOB at all times. no vomiting. patient was tolerated well.
[2019-05-03 12:00] VITALS: BP 95/57
[2019-05-03] MEDS ORDERED: D5NS 1000ml IV ONE (14:08)
[2019-05-03 16:00] VITALS: BP 95/56
--- NOTE | 2019-05-03 16:29 | General Progress Note ---
Assessment/Plan Status: unchanged Assessment/Plan: Assessment/Plan Problems: (1) Severe malnutrition ICD Codes: E43 - Unspecified severe protein-calorie malnutrition SNOMED: 59453708 (2) At high risk for aspiration ICD Codes: Z91.89 - Other specified personal risk factors, not elsewhere classified SNOMED: 450258607 (3) Coffee ground emesis ICD Codes: K92.0 - Hematemesis SNOMED: 33828221 (4) CVA (cerebrovascular accident) ICD Codes: I63.9 - Cerebral infarction, unspecified SNOMED: 519366922 (5) Elevated LFTs ICD Codes: R94.5 - Abnormal results of liver function studies SNOMED: 293222656, 402839703 Status: unchanged Status Narrative Assessment/Plan MRCP/US reviewed noted that the liver have multiple lesions consistent with metastatic neoplasm. s/p PEG. will need oncology consult Will order herbert CT - pending Continue Protonix 40 mg twice a day Monitor hematocrit hemoglobin and hematocrit, PRN transfusions hydration Subjective Allergies: Coded Allergies: BENAZEPRIL (Verified Allergy, Unknown, 04/29/19) PENICILLINS (Verified Allergy, Unknown, 04/29/19) TERAZOSIN (Verified Allergy, Unknown, 04/29/19) Subjective above noted minimally interactive d/w RN Objective Last 24 Hour Vital Signs Date Time Temp Pulse Resp B/P (MAP) Pulse Ox O2 Delivery O2 Flow Rate FiO2 05/03/19 12:00 98.3 92 21 95/57 (70) 96 05/03/19 09:00 Nasal Cannula 2.0 05/03/19 08:00 98.0 86 21 94/50 (65) 96 05/03/19 07:41 94 Nasal Cannula 3.0 32 05/03/19 04:00 97.1 102 20 122/78 (93) 94 05/03/19 00:00 96.5 102 22 95/66 (76) 95 05/02/19 23:55 Nasal Cannula 2.0 05/02/19 20:59 114 05/02/19 20:07 95 Nasal Cannula 2.0 28 05/02/19 20:00 96.0 119 24 105/70 (82) 94 05/02/19 18:00 101/67 (78) Intake and Output 05/02/19 05/03/19 18:59 06:59 Intake Total 2540 ml 740 ml Output Total 0 ml 2 ml Balance 2540 ml 738 ml Intake Free Water 150 ml 150 ml IV Total 2330 ml 450 ml Tube Feeding 60 ml 140 ml Output Urine Total 2 ml Estimated Blood Loss 0 ml Height (Feet): 5 Height (Inches): 10.00 Weight (Pounds): 153 Objective WDWN NCAT supple CTA RRR Abd Soft ND (+) GT no edema confused, restrained Elvira Kirby MD May 03, 2019 16:29
--- NOTE | 2019-05-03 17:49 | Internal Med Progress Note ---
Subjective Date of Service: May 03, 2019 Physician Name Betito Naylor Attending Physician Dionte Duenas MD Current Medications Medications (Trade) Dose Ordered Sig/Eric Route PRN Reason Start Time Stop Time Status Last Admin Dose Admin Acetaminophen (Tylenol) 650 mg Q4H PRN ORAL fever 05/02/19 04:30 05/29/19 04:29 Dextrose (Dextrose 50%) 25 ml Q30M PRN IV Hypoglycemia 05/02/19 04:45 05/29/19 21:14 Dextrose (Dextrose 50%) 50 ml Q30M PRN IV Hypoglycemia 05/02/19 04:45 05/29/19 21:14 Diphenhydramine HCl (Benadryl) 25 mg Q6H PRN ORAL Itching/Pruritis 05/02/19 04:30 05/30/19 04:29 Ertapenem 1 gm/ Sodium Chloride 55 ml @ 110 mls/hr Q24H IVPB 05/02/19 18:00 05/07/19 17:59 05/02/19 18:19 Finasteride (Proscar) 5 mg DAILY ORAL 05/02/19 09:00 05/30/19 08:59 05/03/19 08:51 Nitroglycerin (Ntg) 0.4 mg Q5M X 3 DOSES PRN SL Prn Chest Pain 05/02/19 04:30 05/29/19 21:14 Ondansetron HCl (Zofran) 4 mg Q6H PRN IVP Nausea & Vomiting 05/02/19 04:30 05/30/19 04:29 Pantoprazole (Protonix) 40 mg EVERY 12 HOURS IVP 05/02/19 09:00 05/30/19 20:59 05/03/19 08:51 Promethazine HCl/ Codeine (Phenergan with Codeine) 5 ml Q4H PRN ORAL For Cough 05/02/19 04:30 05/30/19 04:29 Tamsulosin HCl (Flomax) 0.4 mg DAILY ORAL 05/02/19 09:00 05/30/19 08:59 05/03/19 08:51 Temazepam (Restoril) 15 mg HSPRN PRN ORAL Insomnia 05/02/19 20:00 05/07/19 19:59 Allergies: Coded Allergies: BENAZEPRIL (Verified Allergy, Unknown, 04/29/19) PENICILLINS (Verified Allergy, Unknown, 04/29/19) TERAZOSIN (Verified Allergy, Unknown, 04/29/19) ROS Limited/Unobtainable: Yes Subjective 74 YO M admitted with upper GI bleed. Now esophageal mass with liver masses. Cover for [facility]-Dr. Duenas. S/P endoscopy and PEG placement 05/02/19. Objective Last Vital Signs Date Time Temp Pulse Resp B/P (MAP) Pulse Ox O2 Delivery O2 Flow Rate FiO2 05/03/19 16:00 98.0 90 21 95/56 (69) 96 05/03/19 09:00 Nasal Cannula 2.0 05/03/19 07:41 32 Microbiology Date/Time Source Procedure Growth Status 05/02/19 11:15 Sputum Gram Stain - Final Resulted 05/02/19 11:15 Sputum Sputum Culture - Preliminary NO GROWTH Resulted Intake and Output 05/02/19 05/03/19 18:59 06:59 Intake Total 2540 ml 740 ml Output Total 0 ml 2 ml Balance 2540 ml 738 ml Intake Free Water 150 ml 150 ml IV Total 2330 ml 450 ml Tube Feeding 60 ml 140 ml Output Urine Total 2 ml Estimated Blood Loss 0 ml Objective PHYSICAL EXAMINATION: GENERAL: The patient is well-developed and well-nourished, thin-appearing white male, in no apparent distress. HEENT: Eyes, pupils are equal and responsive to light and accommodation. Extraocular movements are intact. NECK: Supple without lymphadenopathy. CHEST: Lungs are clear to auscultation bilaterally without wheezes or rales. CARDIOVASCULAR: Regular rate. S1 and S2 normal without murmurs, rubs, or gallops. ABDOMEN: Soft, nontender, nondistended. Positive bowel sounds. No evidence of hepatosplenomegaly. Currently, no rebound or guarding noted. EXTREMITIES: Negative for clubbing, cyanosis, or edema. RECTAL: Not performed. GENITALIA: Not performed. NEUROLOGIC: Cranial nerves II through XII are grossly intact without focal deficits. Motor strength is 5/5 bilaterally. Deep tendon reflexes are 2+ plantar. Assessment/Plan Assessment/Plan ASSESSMENT: This is a 74-year-old male. 1. Upper gastrointestinal hemorrhage. 2. Elevated liver enzymes. 3. Liver masses. 4. Gastroesophageal reflux disease. 5. Hypercholesterolemia. 6. Hypertension. 7. Benign prostatic hypertrophy. 8. Pneumonia 9. esophageal mass with Liver masses 10. dysphagia TREATMENT: 1. Elevated liver enzymes/upper gastrointestinal hemorrhage. Gastroenterology consultation obtained with Dr. Martínez Olsen. An endoscopy has been scheduled. We will follow recommendations of Gastroenterology. Elevated liver enzymes may be secondary to liver masses secondary to metastatic disease. 2. Liver masses. See discussion above. 3. Gastroesophageal reflux disease. The patient has been placed on Protonix. 4. Hypercholesterolemia. Continue atorvastatin. 5. Hypertension. The patient is currently hypotensive due to hypovolemia. 6. Benign prostatic hypertrophy. Continue Flomax as above. 7. ABX=Cipro 8. S/P endoscopy and PEG 05/02/19. 9. Await pathology report Betito Naylor MD May 03, 2019 17:49
[2019-05-03] MEDS: Ertapenem 1 GM in NS 55 ML IVPB SCH (18:26)
--- NOTE | 2019-05-03 19:28 | NUR ---
HAND-OFF: Report given to ELSA Ware.
--- NOTE | 2019-05-03 19:30 | NUR ---
NURSE NOTES: Received patient in bed. NC 2L on. No s/s of distress noted. IV site patent and intact. G-tube in place, running Glucerna 1.2 50cc/hr, 0cc residual noted, flushed, elevated HOB. Restraint noted on bilateral wrist, no skin tear or bruise noted, radial pulse present. Girlfriend at bedside. Bed in lowest position. Call light within reach. Will continue to monitor.
[2019-05-03 20:00] VITALS: BP 99/66
[2019-05-04] VITALS (13 sets, daily range): BP systolic 80–135; BP diastolic 50–72
[2019-05-04 06:28] LABS: BASOPHILS % (AUTO) 0.5 % (0.0-2.0); EOSINOPHILS % (AUTO) 0.7 % (0.0-3.0); HEMATOCRIT 35.2 % (42.0-52.0); HEMOGLOBIN 11.6 G/DL (14.2-18.0); LYMPHOCYTES % (AUTO) 6.8 % (20.0-45.0); MEAN CORPUSCULAR VOLUME 82 FL (80-99); PLATELET COUNT 210 K/UL (150-450); RED BLOOD COUNT 4.31 M/UL (4.70-6.10); RED CELL DISTRIBUTION WIDTH 14.5 % (11.6-14.8); WHITE BLOOD COUNT 15.7 K/UL (4.8-10.8)
[2019-05-04 06:40] LABS: ANION GAP 12 mmol/L (5-15); BLOOD UREA NITROGEN 25 mg/dL (7-18); CALCIUM 7.9 MG/DL (8.5-10.1); CARBON DIOXIDE 20 MMOL/L (21-32); CHLORIDE 120 MMOL/L (98-107); CREATININE 1.3 MG/DL (0.55-1.30); POTASSIUM 4.1 MMOL/L (3.5-5.1); SODIUM 152 MMOL/L (136-145)
--- NOTE | 2019-05-04 07:01 | NUR ---
HAND-OFF: Report given to Lisbet HUNTER.
--- NOTE | 2019-05-04 07:40 | NUR ---
NURSE NOTES: received report from ELSA Ware. patient in bed, sleeping. no respiratory distress noted on 2l via NC. GTF running @60. HOB at all times. IV on LFA22 saline lock. intact. soft wrist restraint on both wrist for safety and preventing patient pulling iv and feeding tube. contact isolation. PPE at all times. bed in the lowest position and locked. call light within reach. alarm on. will continue to provide plan of care.
[2019-05-04] MEDS: Tamsulosin 0.4mg cap ORAL SCH (08:28)
[2019-05-04] MEDS: Pantoprazole Inj IVP SCH ×2 (08:28→22:14)
--- NOTE | 2019-05-04 12:13 | Infectious Diseases Prog Note ---
Assessment/Plan Assessment/Plan The patient is a 74-year-old male with, Leukocytosis. Probable aspiration pneumonia and UTI No fever Status post coffee-grounds emesis. Probable liver mets. EGD showed esophageal mass ? esophageal cancer. PLAN: 1. Continue Ertapenem #3 2. Monitor CBC. 3. Monitor BMP. 4. Monitor cultures (blood, sputum). 5. We will follow the endoscopic findings. Final report pending. 6. We will follow GI recommendations. 7. Based on the patient's clinical course and labs, we will do further recommendations. Subjective Allergies: Coded Allergies: BENAZEPRIL (Verified Allergy, Unknown, 04/29/19) PENICILLINS (Verified Allergy, Unknown, 04/29/19) TERAZOSIN (Verified Allergy, Unknown, 04/29/19) Subjective Afebrile 2L NC WBCs stable Objective Vital Signs Last 24 Hour Vital Signs Date Time Temp Pulse Resp B/P (MAP) Pulse Ox O2 Delivery O2 Flow Rate FiO2 05/04/19 09:00 Nasal Cannula 2.0 05/04/19 08:00 98.4 93 17 101/59 (73) 93 05/04/19 07:26 97 Nasal Cannula 3.0 32 05/04/19 04:00 98.4 98 20 94/65 (75) 92 05/04/19 00:00 97.5 95 20 101/65 (77) 93 05/03/19 21:00 Nasal Cannula 2.0 05/03/19 20:00 97.9 95 20 99/66 (77) 94 05/03/19 20:00 93 Nasal Cannula 2.0 28 05/03/19 16:00 98.0 90 21 95/56 (69) 96 Height (Feet): 5 Height (Inches): 10.00 Weight (Pounds): 153 Objective HEENT: Mild pale conjunctivae. No icterus. CHEST: CTAB HEART: S1 and S2. RRR ABDOMEN: Soft. G-tube in place. Microbiology Date/Time Source Procedure Growth Status 05/02/19 11:15 Sputum Gram Stain - Final Complete 05/02/19 11:15 Sputum Sputum Culture - Final NORMAL UPPER RESPIRATORY COLLEEN PRESENT Complete Laboratory Tests Test 05/04/19 05:30 White Blood Count 15.7 K/UL (4.8-10.8) H Red Blood Count 4.31 M/UL (4.70-6.10) L Hemoglobin 11.6 G/DL (14.2-18.0) L Hematocrit 35.2 % (42.0-52.0) L Mean Corpuscular Volume 82 FL (80-99) Mean Corpuscular Hemoglobin 26.8 PG (27.0-31.0) L Mean Corpuscular Hemoglobin Concent 32.8 G/DL (32.0-36.0) Red Cell Distribution Width 14.5 % (11.6-14.8) Platelet Count 210 K/UL (150-450) Mean Platelet Volume 6.4 FL (6.5-10.1) L Neutrophils (%) (Auto) 84.0 % (45.0-75.0) H Lymphocytes (%) (Auto) 6.8 % (20.0-45.0) L Monocytes (%) (Auto) 8.0 % (1.0-10.0) Eosinophils (%) (Auto) 0.7 % (0.0-3.0) Basophils (%) (Auto) 0.5 % (0.0-2.0) Sodium Level 152 MMOL/L (136-145) H Potassium Level 4.1 MMOL/L (3.5-5.1) Chloride Level 120 MMOL/L (98-107) H Carbon Dioxide Level 20 MMOL/L (21-32) L Anion Gap 12 mmol/L (5-15) Blood Urea Nitrogen 25 mg/dL (7-18) H Creatinine 1.3 MG/DL (0.55-1.30) Estimat Glomerular Filtration Rate mL/min (>60) Glucose Level 131 MG/DL (74-106) H Calcium Level 7.9 MG/DL (8.5-10.1) L Current Medications Medications (Trade) Dose Ordered Sig/Eric Route PRN Reason Start Time Stop Time Status Last Admin Dose Admin Acetaminophen (Tylenol) 650 mg Q4H PRN ORAL fever 05/02/19 04:30 05/29/19 04:29 Dextrose (Dextrose 50%) 25 ml Q30M PRN IV Hypoglycemia 05/02/19 04:45 05/29/19 21:14 Dextrose (Dextrose 50%) 50 ml Q30M PRN IV Hypoglycemia 05/02/19 04:45 05/29/19 21:14 Diphenhydramine HCl (Benadryl) 25 mg Q6H PRN ORAL Itching/Pruritis 05/02/19 04:30 05/30/19 04:29 Ertapenem 1 gm/ Sodium Chloride 55 ml @ 110 mls/hr Q24H IVPB 05/02/19 18:00 05/07/19 17:59 05/03/19 18:26 Finasteride (Proscar) 5 mg DAILY ORAL 05/02/19 09:00 05/30/19 08:59 05/04/19 08:29 Nitroglycerin (Ntg) 0.4 mg Q5M X 3 DOSES PRN SL Prn Chest Pain 05/02/19 04:30 05/29/19 21:14 Ondansetron HCl (Zofran) 4 mg Q6H PRN IVP Nausea & Vomiting 05/02/19 04:30 05/30/19 04:29 Pantoprazole (Protonix) 40 mg EVERY 12 HOURS IVP 05/02/19 09:00 05/30/19 20:59 05/04/19 08:28 Promethazine HCl/ Codeine (Phenergan with Codeine) 5 ml Q4H PRN ORAL For Cough 05/02/19 04:30 05/30/19 04:29 Tamsulosin HCl (Flomax) 0.4 mg DAILY ORAL 05/02/19 09:00 05/30/19 08:59 05/04/19 08:28 Temazepam (Restoril) 15 mg HSPRN PRN ORAL Insomnia 05/02/19 20:00 05/07/19 19:59 Gene Renee MD May 04, 2019 12:13
--- NOTE | 2019-05-04 14:45 | General Progress Note ---
Assessment/Plan Status: unchanged Assessment/Plan: Assessment/Plan Problems: (1) Severe malnutrition ICD Codes: E43 - Unspecified severe protein-calorie malnutrition SNOMED: 79501367 (2) At high risk for aspiration ICD Codes: Z91.89 - Other specified personal risk factors, not elsewhere classified SNOMED: 018015570 (3) Coffee ground emesis ICD Codes: K92.0 - Hematemesis SNOMED: 40201650 (4) CVA (cerebrovascular accident) ICD Codes: I63.9 - Cerebral infarction, unspecified SNOMED: 337975823 (5) Elevated LFTs ICD Codes: R94.5 - Abnormal results of liver function studies SNOMED: 816055214, 918771211 Status: unchanged Status Narrative Assessment/Plan MRCP/US reviewed noted that the liver have multiple lesions consistent with metastatic neoplasm. s/p PEG. will need oncology consult Will order herbert CT - pending Continue Protonix 40 mg twice a day Monitor hematocrit hemoglobin and hematocrit, PRN transfusions hydration Subjective Allergies: Coded Allergies: BENAZEPRIL (Verified Allergy, Unknown, 04/29/19) PENICILLINS (Verified Allergy, Unknown, 04/29/19) TERAZOSIN (Verified Allergy, Unknown, 04/29/19) Subjective above noted minimally interactive no events overnight Objective Last 24 Hour Vital Signs Date Time Temp Pulse Resp B/P (MAP) Pulse Ox O2 Delivery O2 Flow Rate FiO2 05/04/19 12:00 98.4 102 17 95/67 (76) 93 05/04/19 09:00 Nasal Cannula 2.0 05/04/19 08:00 98.4 93 17 101/59 (73) 93 05/04/19 07:26 97 Nasal Cannula 3.0 32 05/04/19 04:00 98.4 98 20 94/65 (75) 92 05/04/19 00:00 97.5 95 20 101/65 (77) 93 05/03/19 21:00 Nasal Cannula 2.0 05/03/19 20:00 97.9 95 20 99/66 (77) 94 05/03/19 20:00 93 Nasal Cannula 2.0 28 05/03/19 16:00 98.0 90 21 95/56 (69) 96 Intake and Output 05/03/19 05/04/19 19:00 07:00 Intake Total 800 ml 1210 ml Balance 800 ml 1210 ml Intake Free Water 500 ml 500 ml Tube Feeding 300 ml 710 ml # Voids 3 2 Laboratory Tests 05/04/19 05:30: White Blood Count 15.7H, Red Blood Count 4.31L, Hemoglobin 11.6L, Hematocrit 35.2L, Mean Corpuscular Volume 82, Mean Corpuscular Hemoglobin 26.8L, Mean Corpuscular Hemoglobin Concent 32.8, Red Cell Distribution Width 14.5, Platelet Count 210, Mean Platelet Volume 6.4L, Neutrophils (%) (Auto) 84.0H, Lymphocytes (%) (Auto) 6.8L, Monocytes (%) (Auto) 8.0, Eosinophils (%) (Auto) 0.7, Basophils (%) (Auto) 0.5, Sodium Level 152H, Potassium Level 4.1, Chloride Level 120H, Carbon Dioxide Level 20L, Anion Gap 12, Blood Urea Nitrogen 25H, Creatinine 1.3, Estimat Glomerular Filtration Rate , Glucose Level 131H, Calcium Level 7.9L Height (Feet): 5 Height (Inches): 10.00 Weight (Pounds): 153 Objective WDWN NCAT supple CTA RRR Abd Soft ND (+) GT no edema confused, restrained Elvira Kirby MD May 04, 2019 14:45
--- NOTE | 2019-05-04 15:26 | Internal Med Progress Note ---
Subjective Date of Service: May 04, 2019 Physician Name Betito Naylor Attending Physician Dionte Duenas MD Current Medications Medications (Trade) Dose Ordered Sig/Eric Route PRN Reason Start Time Stop Time Status Last Admin Dose Admin Acetaminophen (Tylenol) 650 mg Q4H PRN ORAL fever 05/02/19 04:30 05/29/19 04:29 Dextrose (Dextrose 50%) 25 ml Q30M PRN IV Hypoglycemia 05/02/19 04:45 05/29/19 21:14 Dextrose (Dextrose 50%) 50 ml Q30M PRN IV Hypoglycemia 05/02/19 04:45 05/29/19 21:14 Diphenhydramine HCl (Benadryl) 25 mg Q6H PRN ORAL Itching/Pruritis 05/02/19 04:30 05/30/19 04:29 Ertapenem 1 gm/ Sodium Chloride 55 ml @ 110 mls/hr Q24H IVPB 05/02/19 18:00 05/07/19 17:59 05/03/19 18:26 Finasteride (Proscar) 5 mg DAILY ORAL 05/02/19 09:00 05/30/19 08:59 05/04/19 08:29 Nitroglycerin (Ntg) 0.4 mg Q5M X 3 DOSES PRN SL Prn Chest Pain 05/02/19 04:30 05/29/19 21:14 Ondansetron HCl (Zofran) 4 mg Q6H PRN IVP Nausea & Vomiting 05/02/19 04:30 05/30/19 04:29 Pantoprazole (Protonix) 40 mg EVERY 12 HOURS IVP 05/02/19 09:00 05/30/19 20:59 05/04/19 08:28 Promethazine HCl/ Codeine (Phenergan with Codeine) 5 ml Q4H PRN ORAL For Cough 05/02/19 04:30 05/30/19 04:29 Tamsulosin HCl (Flomax) 0.4 mg DAILY ORAL 05/02/19 09:00 05/30/19 08:59 05/04/19 08:28 Temazepam (Restoril) 15 mg HSPRN PRN ORAL Insomnia 05/02/19 20:00 05/07/19 19:59 Allergies: Coded Allergies: BENAZEPRIL (Verified Allergy, Unknown, 04/29/19) PENICILLINS (Verified Allergy, Unknown, 04/29/19) TERAZOSIN (Verified Allergy, Unknown, 04/29/19) ROS Limited/Unobtainable: No Constitutional: Reports: no symptoms HEENT: Reports: no symptoms Cardiovascular: Reports: no symptoms Respiratory: Reports: no symptoms Gastrointestinal/Abdominal: Reports: no symptoms Genitourinary: Reports: no symptoms Neurologic/Psychiatric: Reports: no symptoms Subjective 74 YO M admitted with upper GI bleed. Now esophageal mass with liver masses. Cover for [facility]-Dr. Duenas. S/P endoscopy and PEG placement 05/02/19. Objective Last Vital Signs Date Time Temp Pulse Resp B/P (MAP) Pulse Ox O2 Delivery O2 Flow Rate FiO2 05/04/19 12:00 98.4 102 17 95/67 (76) 93 05/04/19 09:00 Nasal Cannula 2.0 05/04/19 07:26 32 Laboratory Tests Test 05/04/19 05:30 White Blood Count 15.7 K/UL (4.8-10.8) H Red Blood Count 4.31 M/UL (4.70-6.10) L Hemoglobin 11.6 G/DL (14.2-18.0) L Hematocrit 35.2 % (42.0-52.0) L Mean Corpuscular Volume 82 FL (80-99) Mean Corpuscular Hemoglobin 26.8 PG (27.0-31.0) L Mean Corpuscular Hemoglobin Concent 32.8 G/DL (32.0-36.0) Red Cell Distribution Width 14.5 % (11.6-14.8) Platelet Count 210 K/UL (150-450) Mean Platelet Volume 6.4 FL (6.5-10.1) L Neutrophils (%) (Auto) 84.0 % (45.0-75.0) H Lymphocytes (%) (Auto) 6.8 % (20.0-45.0) L Monocytes (%) (Auto) 8.0 % (1.0-10.0) Eosinophils (%) (Auto) 0.7 % (0.0-3.0) Basophils (%) (Auto) 0.5 % (0.0-2.0) Sodium Level 152 MMOL/L (136-145) H Potassium Level 4.1 MMOL/L (3.5-5.1) Chloride Level 120 MMOL/L (98-107) H Carbon Dioxide Level 20 MMOL/L (21-32) L Anion Gap 12 mmol/L (5-15) Blood Urea Nitrogen 25 mg/dL (7-18) H Creatinine 1.3 MG/DL (0.55-1.30) Estimat Glomerular Filtration Rate mL/min (>60) Glucose Level 131 MG/DL (74-106) H Calcium Level 7.9 MG/DL (8.5-10.1) L Microbiology Date/Time Source Procedure Growth Status 05/02/19 11:15 Sputum Gram Stain - Final Complete 05/02/19 11:15 Sputum Sputum Culture - Final NORMAL UPPER RESPIRATORY COLLEEN PRESENT Complete Intake and Output 05/03/19 05/04/19 19:00 07:00 Intake Total 800 ml 1210 ml Balance 800 ml 1210 ml Intake Free Water 500 ml 500 ml Tube Feeding 300 ml 710 ml # Voids 3 2 Objective PHYSICAL EXAMINATION: GENERAL: The patient is well-developed and well-nourished, thin-appearing white male, in no apparent distress. HEENT: Eyes, pupils are equal and responsive to light and accommodation. Extraocular movements are intact. NECK: Supple without lymphadenopathy. CHEST: Lungs are clear to auscultation bilaterally without wheezes or rales. CARDIOVASCULAR: Regular rate. S1 and S2 normal without murmurs, rubs, or gallops. ABDOMEN: Soft, nontender, nondistended. Positive bowel sounds. No evidence of hepatosplenomegaly. Currently, no rebound or guarding noted. EXTREMITIES: Negative for clubbing, cyanosis, or edema. RECTAL: Not performed. GENITALIA: Not performed. NEUROLOGIC: Cranial nerves II through XII are grossly intact without focal deficits. Motor strength is 5/5 bilaterally. Deep tendon reflexes are 2+ plantar. Assessment/Plan Assessment/Plan ASSESSMENT: This is a 74-year-old male. 1. Upper gastrointestinal hemorrhage. 2. Elevated liver enzymes. 3. Liver masses. 4. Gastroesophageal reflux disease. 5. Hypercholesterolemia. 6. Hypertension. 7. Benign prostatic hypertrophy. 8. Pneumonia 9. esophageal mass with Liver masses 10. dysphagia TREATMENT: 1. Elevated liver enzymes/upper gastrointestinal hemorrhage. Gastroenterology consultation obtained with Dr. Martínez Olsen. An endoscopy has been scheduled. We will follow recommendations of Gastroenterology. Elevated liver enzymes may be secondary to liver masses secondary to metastatic disease. 2. Liver masses. See discussion above. 3. Gastroesophageal reflux disease. The patient has been placed on Protonix. 4. Hypercholesterolemia. Continue atorvastatin. 5. Hypertension. The patient is currently hypotensive due to hypovolemia. 6. Benign prostatic hypertrophy. Continue Flomax as above. 7. ABX=Cipro 8. S/P endoscopy and PEG 05/02/19. 9. Await pathology report 10. Oncology=Betito Corrigan MD May 04, 2019 15:26
--- NOTE | 2019-05-04 17:30 | NUR ---
NURSE NOTES: patient was taken CT yesterday,05/03/19. No result came yet. RN received call from brother. the patient's family members want to talk to MD with the CT result. RN called CT scan. CT staff will find out the processing.
[2019-05-04] MEDS: Ertapenem 1 GM in NS 55 ML IVPB SCH (18:30)
--- NOTE | 2019-05-04 19:17 | NUR ---
HAND-OFF: Report given to ELSA Hobson.
--- NOTE | 2019-05-04 20:00 | NUR ---
NURSE NOTES: Restraints off.
--- NOTE | 2019-05-04 20:28 | NUR ---
NETWORK OPERATIONS CENTER TECHNICIAN Note: NETWORK OPERATIONS CENTER TECHNICIAN was called at 2027 by [employer], and notified MD Rawls Pt transferred to at 2054. See NETWORK OPERATIONS CENTER TECHNICIAN documentation form for full report.chiller hand called due to hypotension and aloc
--- NOTE | 2019-05-04 20:50 | NUR ---
RESPIRATORY NOTE: Responded to DELICATESSEN STORE MANAGER. package liner was called due to low bp. Pts saturation at 95% on 3L n/c. ABG was performed on pt and results was read back to charge nurse Oneyda. Pt is being transferred to icu.
--- NOTE | 2019-05-04 21:00 | NUR ---
NURSE NOTES: Patient's BP was decreased. 80/50 on POLISHER SAND's record. Rechecked on the same arm got 79/55. On the other arm, it was 87/64, head was moved by staff fixing patient's head position. Pulse rate was increased, 104-109. RR-22. Temp was 97.0. Pt. had no verbal response. Patient eyes were just open and appeared to be different from normal. Charge nurse made aware. She called SCALLOPER, immediately. Dowel Setting Machine Operator Gertrude came on the floor. Blood sugar was 119. Called Dr. Duenas and left message. Patient was transferred to ICU per protocol.
--- NOTE | 2019-05-04 21:00 | NUR ---
NURSE NOTES: transferred to icu after assistant community director due to aloc and hypotension,bp 82/54,hr 98/min, rr 28-32/min temp 98.7, o2 sat 88% on o2 4lnc,responsive only to sternal rub,ns ivf given, total of 500ml, government affairs manager shows nsr
--- NOTE | 2019-05-04 21:10 | NUR ---
NURSE NOTES: family member,taj who is the brother here to visit, update on patient's condition explained
--- NOTE | 2019-05-04 21:15 | NUR ---
NURSE NOTES: chanfed o2 to venturimask at 45%, o2 sat improved to 95-97%
--- NOTE | 2019-05-04 21:15 | NUR ---
TRANSFER TO FLOOR: Patient transferred to ICU bed B. Report given to ELSA Call. Family came in the unit.
[2019-05-04] MEDS ORDERED: Nitroglycerin Subl 0.4mg tab SL PRN (21:30)
--- NOTE | 2019-05-04 21:30 | NUR ---
NURSE NOTES: dr murphy called, awaiting to call back
--- NOTE | 2019-05-04 21:45 | NUR ---
NURSE NOTES: dr murphy returned the call and orders acknowledged
[2019-05-04] MEDS ORDERED: D5 1/2NS 1,000 ML IV SCH (22:00)
[2019-05-04] MEDS ORDERED: Vancomycin 1 GM in D5W 275 ML IVPB ONE (22:00)
[2019-05-04] MEDS ORDERED: DOPamine 400mg/250ml 250 ML IV SCH (22:00)
--- NOTE | 2019-05-04 22:00 | NUR ---
NURSE NOTES: bp now 135/72, D5 1/2 ns at 75ml infusing now
--- NOTE | 2019-05-04 23:03 | NUR ---
NURSE NOTES: Patient was sleeping, on O2 nasal cannula @ 2LPM. On Gtube feeding. With IV access on the left arm g.22. With soft restraints on bilateral arms. Bed in lowest, lock engaged and alarm on. Will continue to monitor. Addendum: 05/04/19 at 2306 by LILLIAM ELIZABETH RN 05/04/10 19:30
[2019-05-04 23:14] LABS: BASOPHILS % (AUTO) 0.4 % (0.0-2.0); EOSINOPHILS % (AUTO) 1.2 % (0.0-3.0); HEMATOCRIT 31.6 % (42.0-52.0); HEMOGLOBIN 10.4 G/DL (14.2-18.0); LYMPHOCYTES % (AUTO) 6.7 % (20.0-45.0); MEAN CORPUSCULAR VOLUME 81 FL (80-99); MONOCYTES % (AUTO) 8.1 % (1.0-10.0); NEUTROPHILS % (AUTO) 83.6 % (45.0-75.0); PLATELET COUNT 174 K/UL (150-450); RED CELL DISTRIBUTION WIDTH 14.9 % (11.6-14.8)
--- NOTE | 2019-05-04 23:30 | NUR ---
NURSE NOTES: wound care done to sacral area
[2019-05-05] VITALS (25 sets, daily range): BP systolic 85–123; BP diastolic 56–87
--- NOTE | 2019-05-05 | NUR ---
NURSE NOTES: more awake now, response to verbal stimuli, follows simple command
[2019-05-05] MEDS ORDERED: Promethazine/Codeine 5ml UD ORAL PRN (00:30)
--- NOTE | 2019-05-05 01:00 | NUR ---
NURSE NOTES: voided 200 ml dark doug urine, bladder scan done, has 109ml residual
--- NOTE | 2019-05-05 02:00 | NUR ---
NURSE NOTES: remains lethargic but tries to open eyes and talk on verbal stimulation, gt intact and patent,abd binder on
--- NOTE | 2019-05-05 04:00 | NUR ---
NURSE NOTES: suctioned nasotracheally with small amount of thick,whitish secretion, sputum for c&s sent to lab
--- NOTE | 2019-05-05 05:00 | NUR ---
NURSE NOTES: feeding on hold during district attorney, now resumed gt feeding of glucerna 1.2 at 20ml/hr to increase slowly to goal of 60ml/hr
[2019-05-05 05:05] LABS: HEMATOCRIT 33.4 % (42.0-52.0); HEMOGLOBIN 10.9 G/DL (14.2-18.0); MEAN CORPUSCULAR VOLUME 82 FL (80-99); PLATELET COUNT 163 K/UL (150-450); RED BLOOD COUNT 4.07 M/UL (4.70-6.10); RED CELL DISTRIBUTION WIDTH 15.2 % (11.6-14.8); WHITE BLOOD COUNT 19.2 K/UL (4.8-10.8)
--- NOTE | 2019-05-05 06:00 | NUR ---
NURSE NOTES: complete bed bath given,oral care done with dried sputum removed from the roof of the mouth
[2019-05-05 06:05] LABS: ALANINE AMINOTRANSFERASE 98 U/L (12-78); ALBUMIN 1.2 G/DL (3.4-5.0); ALBUMIN/GLOBULIN RATIO 0.4 (1.0-2.7); ALKALINE PHOSPHATASE 1864 U/L (46-116); ANION GAP 8 mmol/L (5-15); ASPARTATE AMINO TRANSFERASE 357 U/L (15-37); BLOOD UREA NITROGEN 35 mg/dL (7-18); CALCIUM 7.8 MG/DL (8.5-10.1); CARBON DIOXIDE 22 MMOL/L (21-32); CHLORIDE 121 MMOL/L (98-107); CREATININE 1.4 MG/DL (0.55-1.30); POTASSIUM 4.2 MMOL/L (3.5-5.1); SODIUM 151 MMOL/L (136-145)
[2019-05-05 06:29] LABS: BILIRUBIN,DIRECT 1.5 MG/DL (0.0-0.3)
--- NOTE | 2019-05-05 07:30 | NUR ---
HAND-OFF: Report given to amaury cullen.
--- NOTE | 2019-05-05 07:38 | NUR ---
NURSE NOTES: Report received from ELSA Call
--- NOTE | 2019-05-05 07:42 | NUR ---
NURSE NOTES: Received call from pt brother Nithin Sands who will like to discuss with Dr Morse about the pt condition and post status because as stated " I want to make the right decision for him so he does not have to suffer". Update given on patient condition, and will follow up family request.
[2019-05-05] MEDS: Tamsulosin 0.4mg cap ORAL SCH (08:59)
[2019-05-05] MEDS: Pantoprazole Inj IVP SCH (08:59)
--- NOTE | 2019-05-05 09:52 | NUR ---
NURSE NOTES: Patient turned and repositioned for skin management.Systolic blood pressure still fluctuating in the 80.Dr Morse made aware of the family request to call. Awaiting for further instruction.Will continue close monitoring. Addendum: 05/06/19 at 0933 by Dominga Weeks RN patient belongings was taken home by girl friend Amie Guzmán phone included,belongings list signed
--- NOTE | 2019-05-05 09:55 | NUR ---
RD ASSESSMENT & RECOMMENDATIONS SEE CARE ACTIVITY FOR COMPLETE ASSESSMENT DAILY ESTIMATED NEEDS: Needs based on Cardiac, liver dysfunction, wound 68.8kg 25-30 kcals/kg 0717-0061 total kcals 1.25-1.5 g protein/kg 86-103 g total protein 25-30 mL/kg 6770-8877 total fluid mLs NUTRITION DIAGNOSIS: * Swallowing difficulty R/T dysphagia as evidenced by s/p VSS w/ rec for nonoral feedings as primary or supplement to PO intake, now s/p PEG placement. * Altered GI fxn related GIB as evidenced by pt adm w/ coffee ground emesis, EGD pending, NPO at this time. CURRENT DIET: NPO CURRENT TF: Glucerna 1.2 @60ml - now on hold (PO DIET RECOMMENDATIONS: IF SAFE FOR ORAL DIET: LOW NA/ texture per RN DOCUMENT IMPROVEMENT) ENTERAL NUTRITION RECOMMENDATIONS: Osmolite 1.2 @ 65ml/hr x 24 hrs to provide 1560ml, 1872kcal, 87g prot, 1279ml free water * As medically able: -> initiate TF of Osmolite 1.2 @ 15ml/hr x 6 hrs, -> advance 10ml q 4-6 hrs as tolerated to goal rate -> HOB over 30 degrees/ water flush per MD * HOB Over 30 degrees/ water flush per MD --- W/ hypotension, rec trophic feeds to maintain gut integrity. ADDITIONAL RECOMMENDATIONS: 1) Monitor POC: TF vs oral diet S/p PEG-> now in ICU for hypotension 2) Monitor lytes, replete as needed 3) Wound healing: add Joaquin 1pkt BID if able 4) Weekly weights- pt adm w/ reported wt loss and progressive weakness .
--- NOTE | 2019-05-05 10:30 | NUR ---
Social Service Note BLANKA met with patient's brother Nithin Sands [phone] and [id number] Juve Sands [phone]. Family states patient is unable to return home and would like patient to return to [facility]. Family is agreeable to hospice and met with [facility]. Patient doesn't have medi-nazario and would need to return to a facility with a [facility]. [facility] is able to meet patient's needs and provide hospice services. Per facility patient may require another hospice agency at [facility], family is agreeable. BLANKA discussed with CM.
--- NOTE | 2019-05-05 10:36 | Pulmonolgy Critical Care Note ---
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 Critical Care - Objective Last 24 Hour Vital Signs Date Time Temp Pulse Resp B/P (MAP) Pulse Ox O2 Delivery O2 Flow Rate FiO2 05/05/19 07:00 95 27 97/73 (81) 99 05/05/19 06:57 95 Venturi Mask 10.0 45 05/05/19 06:00 88 24 100/71 (81) 99 05/05/19 05:00 88 24 93/67 (76) 99 05/05/19 04:00 99.8 87 24 103/74 (84) 99 05/05/19 04:00 Venturi Mask 8.0 05/05/19 04:00 90 05/05/19 03:00 90 30 115/63 (80) 98 05/05/19 02:00 92 27 123/64 (83) 98 05/05/19 01:09 88 27 115/56 (75) 98 05/05/19 00:00 88 05/05/19 00:00 99.4 89 32 116/69 (85) 100 05/05/19 00:00 Venturi Mask 8.0 05/04/19 23:00 100 30 111/57 (75) 97 05/04/19 22:15 92 27 113/58 (76) 97 05/04/19 22:00 95 28 135/72 (93) 97 05/04/19 22:00 135/72 05/04/19 21:45 98 31 102/56 (71) 97 05/04/19 21:30 92 30 80/57 (65) 97 05/04/19 21:23 96 Venturi Mask 10.0 45 05/04/19 21:15 95 30 95/62 (73) 96 05/04/19 21:00 98.7 98 28 82/54 (63) 88 05/04/19 21:00 98 05/04/19 21:00 Nasal Cannula 4.0 05/04/19 20:00 97.0 22 80/50 (60) 95 05/04/19 20:00 98 Nasal Cannula 3.0 32 05/04/19 16:00 98.4 98 19 106/59 (75) 94 05/04/19 12:00 98.4 102 17 95/67 (76) 93 Status: somnolent Condition: critical HEENT: atraumatic Lungs: clear Heart: HR/BP stable Abdomen: soft, active bowel sounds Extremities: edema Micro: Microbiology Date/Time Source Procedure Growth Status 05/02/19 11:15 Sputum Gram Stain - Final Complete 05/02/19 11:15 Sputum Sputum Culture - Final NORMAL UPPER RESPIRATORY COLLEEN PRESENT Complete Critical Care - Subjective ROS Limited/Unobtainable: Yes Interval Events: transferred to ICU for low BP, awake, confused now. EKG Rhythm: Sinus Rhythm FI02: 45 Tube Feeding Amount: 20 I&O: Intake and Output 05/04/19 05/05/19 19:00 07:00 Intake Total 1280 ml 1460.0 ml Output Total 450 ml Balance 1280 ml 1010.0 ml Intake Free Water 500 ml 500 ml IV Total 840.0 ml Tube Feeding 780 ml 120 ml Output Urine Total 450 ml Labs: Laboratory Tests Test 05/04/19 20:40 05/04/19 22:50 05/05/19 04:15 05/05/19 10:00 Arterial Blood pH 7.437 (7.350-7.450) Arterial Blood Partial Pressure CO2 28.7 mmHg (35.0-45.0) L Arterial Blood Partial Pressure O2 74.4 mmHg (75.0-100.0) L Arterial Blood HCO3 18.9 mmol/L (22.0-26.0) L Arterial Blood Oxygen Saturation 94.3 % (95-100) L Arterial Blood Base Excess -4.1 (-2-2) L Bill Test Positive White Blood Count 17.0 K/UL (4.8-10.8) H 19.2 K/UL (4.8-10.8) H Red Blood Count 3.90 M/UL (4.70-6.10) L 4.07 M/UL (4.70-6.10) L Hemoglobin 10.4 G/DL (14.2-18.0) L 10.9 G/DL (14.2-18.0) L Hematocrit 31.6 % (42.0-52.0) L 33.4 % (42.0-52.0) L Mean Corpuscular Volume 81 FL (80-99) 82 FL (80-99) Mean Corpuscular Hemoglobin 26.6 PG (27.0-31.0) L 26.9 PG (27.0-31.0) L Mean Corpuscular Hemoglobin Concent 32.8 G/DL (32.0-36.0) 32.8 G/DL (32.0-36.0) Red Cell Distribution Width 14.9 % (11.6-14.8) H 15.2 % (11.6-14.8) H Platelet Count 174 K/UL (150-450) 163 K/UL (150-450) Mean Platelet Volume 6.8 FL (6.5-10.1) 7.4 FL (6.5-10.1) Neutrophils (%) (Auto) 83.6 % (45.0-75.0) H % (45.0-75.0) Lymphocytes (%) (Auto) 6.7 % (20.0-45.0) L % (20.0-45.0) Monocytes (%) (Auto) 8.1 % (1.0-10.0) % (1.0-10.0) Eosinophils (%) (Auto) 1.2 % (0.0-3.0) % (0.0-3.0) Basophils (%) (Auto) 0.4 % (0.0-2.0) % (0.0-2.0) Differential Total Cells Counted 100 Neutrophils % (Manual) 74 % (45-75) Lymphocytes % (Manual) 9 % (20-45) L Monocytes % (Manual) 8 % (1-10) Eosinophils % (Manual) 1 % (0-3) Basophils % (Manual) 0 % (0-2) Myelocytes % 6 % (0-0) H Band Neutrophils 2 % (0-8) Platelet Estimate Decreased L Platelet Morphology Normal Polychromasia 1+ Basophilic Stippling 1+ Anisocytosis 1+ Acanthocytes 1+ Sodium Level 151 MMOL/L (136-145) H Potassium Level 4.2 MMOL/L (3.5-5.1) Chloride Level 121 MMOL/L (98-107) H Carbon Dioxide Level 22 MMOL/L (21-32) Anion Gap 8 mmol/L (5-15) Blood Urea Nitrogen 35 mg/dL (7-18) H Creatinine 1.4 MG/DL (0.55-1.30) H Estimat Glomerular Filtration Rate mL/min (>60) Glucose Level 114 MG/DL (74-106) H Lactic Acid Level 2.20 mmol/L (0.4-2.0) H Pending Calcium Level 7.8 MG/DL (8.5-10.1) L Phosphorus Level 2.3 MG/DL (2.5-4.9) L Magnesium Level 2.1 MG/DL (1.8-2.4) Total Bilirubin 2.0 MG/DL (0.2-1.0) H Direct Bilirubin 1.5 MG/DL (0.0-0.3) H Aspartate Amino Transf (AST/SGOT) 357 U/L (15-37) H Alanine Aminotransferase (ALT/SGPT) 98 U/L (12-78) H Alkaline Phosphatase 1864 U/L (46-116) H Total Protein 4.6 G/DL (6.4-8.2) L Albumin 1.2 G/DL (3.4-5.0) L Globulin 3.4 g/dL Albumin/Globulin Ratio 0.4 (1.0-2.7) L Cortisol AM Sample 22.3 UG/DL Octavia Morse MD May 05, 2019 10:36
--- NOTE | 2019-05-05 10:40 | NUR ---
NURSE NOTES: Family arrived and meeting done with Dr Morse with new order to stop feeding and code status changed to DNR with hospice care consult.Will follow up with new order
[2019-05-05] MEDS ORDERED: Haloperidol 1mg tab ORAL PRN (10:45)
[2019-05-05] MEDS ORDERED: Glycopyrrolate 0.2mg/ml 1ml Vial IV PRN (10:45)
[2019-05-05] MEDS ORDERED: Morphine Sulfate 10mg/5ml Oral Soln ud ORAL PRN (10:45)
[2019-05-05] MEDS ORDERED: MORPHINE S10 MG/5 ML ORAL (10:48)
[2019-05-05] MEDS ORDERED: ATROPINE OPTH SL (10:48)
[2019-05-05] MEDS ORDERED: HALOPERIDOL1 MG ORAL (10:48)
[2019-05-05] MEDS ORDERED: FINASTERIDE5 MG ORAL (10:48)
[2019-05-05] MEDS ORDERED: GLYCOPYRRO0.2 MG/1 M IV (10:48)
[2019-05-05] MEDS: D5NS 1,000 ML IV SCH ×2 (11:05→18:17)
--- NOTE | 2019-05-05 11:21 | GI Progress Note ---
Assessment/Plan Problems: (1) Severe malnutrition ICD Codes: E43 - Unspecified severe protein-calorie malnutrition SNOMED: 34728438 (2) At high risk for aspiration ICD Codes: Z91.89 - Other specified personal risk factors, not elsewhere classified SNOMED: 912873284 (3) Coffee ground emesis ICD Codes: K92.0 - Hematemesis SNOMED: 02696558 (4) CVA (cerebrovascular accident) ICD Codes: I63.9 - Cerebral infarction, unspecified SNOMED: 049419996 (5) Elevated LFTs ICD Codes: R94.5 - Abnormal results of liver function studies SNOMED: 346137174, 948976962 Assessment/Plan This is a 74-year-old male patient that presented with reported multiple episodes of coffee-ground emesis. Discussed with speech therapist noted that the patient has moderately severe oral pharyngeal dysphasia and may benefit from a gastrostomy for nutrition supplementation. MRCP/US reviewed noted that the liver have multiple lesions consistent with metastatic neoplasm. patient now on comfort care. The patient was seen and examined at bedside and all new and available data was reviewed in the patients chart. I agree with the above findings, impression and plan. (Patient seen earlier today. Signature stamp does not reflect patient encounter time.). - Martínez Olsen MD Subjective Subjective Generalized weakness Objective Last 24 Hour Vital Signs Date Time Temp Pulse Resp B/P (MAP) Pulse Ox O2 Delivery O2 Flow Rate FiO2 05/05/19 07:00 95 27 97/73 (81) 99 05/05/19 06:57 95 Venturi Mask 10.0 45 05/05/19 06:00 88 24 100/71 (81) 99 05/05/19 05:00 88 24 93/67 (76) 99 05/05/19 04:00 99.8 87 24 103/74 (84) 99 05/05/19 04:00 Venturi Mask 8.0 05/05/19 04:00 90 05/05/19 03:00 90 30 115/63 (80) 98 05/05/19 02:00 92 27 123/64 (83) 98 05/05/19 01:09 88 27 115/56 (75) 98 05/05/19 00:00 88 05/05/19 00:00 99.4 89 32 116/69 (85) 100 05/05/19 00:00 Venturi Mask 8.0 05/04/19 23:00 100 30 111/57 (75) 97 05/04/19 22:15 92 27 113/58 (76) 97 05/04/19 22:00 95 28 135/72 (93) 97 05/04/19 22:00 135/72 05/04/19 21:45 98 31 102/56 (71) 97 05/04/19 21:30 92 30 80/57 (65) 97 05/04/19 21:23 96 Venturi Mask 10.0 45 05/04/19 21:15 95 30 95/62 (73) 96 05/04/19 21:00 98.7 98 28 82/54 (63) 88 05/04/19 21:00 98 05/04/19 21:00 Nasal Cannula 4.0 05/04/19 20:00 97.0 22 80/50 (60) 95 05/04/19 20:00 98 Nasal Cannula 3.0 32 05/04/19 16:00 98.4 98 19 106/59 (75) 94 05/04/19 12:00 98.4 102 17 95/67 (76) 93 Intake and Output 05/04/19 05/05/19 18:59 06:59 Intake Total 1280 ml 1425.0 ml Output Total 450 ml Balance 1280 ml 975.0 ml Intake Free Water 500 ml 500 ml IV Total 765.0 ml Tube Feeding 780 ml 160 ml Output Urine Total 450 ml Laboratory Tests Test 05/04/19 20:40 05/04/19 22:50 05/05/19 04:15 05/05/19 10:00 Arterial Blood pH 7.437 (7.350-7.450) Arterial Blood Partial Pressure CO2 28.7 mmHg (35.0-45.0) L Arterial Blood Partial Pressure O2 74.4 mmHg (75.0-100.0) L Arterial Blood HCO3 18.9 mmol/L (22.0-26.0) L Arterial Blood Oxygen Saturation 94.3 % (95-100) L Arterial Blood Base Excess -4.1 (-2-2) L Bill Test Positive White Blood Count 17.0 K/UL (4.8-10.8) H 19.2 K/UL (4.8-10.8) H Red Blood Count 3.90 M/UL (4.70-6.10) L 4.07 M/UL (4.70-6.10) L Hemoglobin 10.4 G/DL (14.2-18.0) L 10.9 G/DL (14.2-18.0) L Hematocrit 31.6 % (42.0-52.0) L 33.4 % (42.0-52.0) L Mean Corpuscular Volume 81 FL (80-99) 82 FL (80-99) Mean Corpuscular Hemoglobin 26.6 PG (27.0-31.0) L 26.9 PG (27.0-31.0) L Mean Corpuscular Hemoglobin Concent 32.8 G/DL (32.0-36.0) 32.8 G/DL (32.0-36.0) Red Cell Distribution Width 14.9 % (11.6-14.8) H 15.2 % (11.6-14.8) H Platelet Count 174 K/UL (150-450) 163 K/UL (150-450) Mean Platelet Volume 6.8 FL (6.5-10.1) 7.4 FL (6.5-10.1) Neutrophils (%) (Auto) 83.6 % (45.0-75.0) H % (45.0-75.0) Lymphocytes (%) (Auto) 6.7 % (20.0-45.0) L % (20.0-45.0) Monocytes (%) (Auto) 8.1 % (1.0-10.0) % (1.0-10.0) Eosinophils (%) (Auto) 1.2 % (0.0-3.0) % (0.0-3.0) Basophils (%) (Auto) 0.4 % (0.0-2.0) % (0.0-2.0) Differential Total Cells Counted 100 Neutrophils % (Manual) 74 % (45-75) Lymphocytes % (Manual) 9 % (20-45) L Monocytes % (Manual) 8 % (1-10) Eosinophils % (Manual) 1 % (0-3) Basophils % (Manual) 0 % (0-2) Myelocytes % 6 % (0-0) H Band Neutrophils 2 % (0-8) Platelet Estimate Decreased L Platelet Morphology Normal Polychromasia 1+ Basophilic Stippling 1+ Anisocytosis 1+ Acanthocytes 1+ Sodium Level 151 MMOL/L (136-145) H Potassium Level 4.2 MMOL/L (3.5-5.1) Chloride Level 121 MMOL/L (98-107) H Carbon Dioxide Level 22 MMOL/L (21-32) Anion Gap 8 mmol/L (5-15) Blood Urea Nitrogen 35 mg/dL (7-18) H Creatinine 1.4 MG/DL (0.55-1.30) H Estimat Glomerular Filtration Rate mL/min (>60) Glucose Level 114 MG/DL (74-106) H Lactic Acid Level 2.20 mmol/L (0.4-2.0) H 2.50 mmol/L (0.66-2.22) H Calcium Level 7.8 MG/DL (8.5-10.1) L Phosphorus Level 2.3 MG/DL (2.5-4.9) L Magnesium Level 2.1 MG/DL (1.8-2.4) Total Bilirubin 2.0 MG/DL (0.2-1.0) H Direct Bilirubin 1.5 MG/DL (0.0-0.3) H Aspartate Amino Transf (AST/SGOT) 357 U/L (15-37) H Alanine Aminotransferase (ALT/SGPT) 98 U/L (12-78) H Alkaline Phosphatase 1864 U/L (46-116) H Total Protein 4.6 G/DL (6.4-8.2) L Albumin 1.2 G/DL (3.4-5.0) L Globulin 3.4 g/dL Albumin/Globulin Ratio 0.4 (1.0-2.7) L Cortisol AM Sample 22.3 UG/DL Height (Feet): 5 Height (Inches): 10.00 Weight (Pounds): 163 John Chowdhury NP May 05, 2019 11:21
--- NOTE | 2019-05-05 11:28 | Infectious Diseases Prog Note ---
Assessment/Plan Assessment/Plan The patient is a 74-year-old male with, Leukocytosis, increased Probable aspiration pneumonia and UTI -05/02 sp cx normal resp ivelisse -04/29 Ucx GNR No fever Status post coffee-grounds emesis. Probable liver mets. EGD showed esophageal mass ? esophageal cancer. PLAN: 1. Continue Ertapenem #4 and empiric IV Vancomycin #2 for now 2. Monitor CBC. 3. Monitor BMP. 4. Monitor cultures (blood, sputum). 5. We will follow GI recommendations. 6. f/u repeat cultures Subjective Allergies: Coded Allergies: BENAZEPRIL (Verified Allergy, Unknown, 04/29/19) PENICILLINS (Verified Allergy, Unknown, 04/29/19) TERAZOSIN (Verified Allergy, Unknown, 04/29/19) Subjective afebrile wbc increased Objective Vital Signs Last 24 Hour Vital Signs Date Time Temp Pulse Resp B/P (MAP) Pulse Ox O2 Delivery O2 Flow Rate FiO2 05/05/19 07:00 95 27 97/73 (81) 99 05/05/19 06:57 95 Venturi Mask 10.0 45 05/05/19 06:00 88 24 100/71 (81) 99 05/05/19 05:00 88 24 93/67 (76) 99 05/05/19 04:00 99.8 87 24 103/74 (84) 99 05/05/19 04:00 Venturi Mask 8.0 05/05/19 04:00 90 05/05/19 03:00 90 30 115/63 (80) 98 05/05/19 02:00 92 27 123/64 (83) 98 05/05/19 01:09 88 27 115/56 (75) 98 05/05/19 00:00 88 05/05/19 00:00 99.4 89 32 116/69 (85) 100 05/05/19 00:00 Venturi Mask 8.0 05/04/19 23:00 100 30 111/57 (75) 97 05/04/19 22:15 92 27 113/58 (76) 97 05/04/19 22:00 95 28 135/72 (93) 97 05/04/19 22:00 135/72 05/04/19 21:45 98 31 102/56 (71) 97 05/04/19 21:30 92 30 80/57 (65) 97 05/04/19 21:23 96 Venturi Mask 10.0 45 05/04/19 21:15 95 30 95/62 (73) 96 05/04/19 21:00 98.7 98 28 82/54 (63) 88 05/04/19 21:00 98 05/04/19 21:00 Nasal Cannula 4.0 05/04/19 20:00 97.0 22 80/50 (60) 95 05/04/19 20:00 98 Nasal Cannula 3.0 32 05/04/19 16:00 98.4 98 19 106/59 (75) 94 05/04/19 12:00 98.4 102 17 95/67 (76) 93 Height (Feet): 5 Height (Inches): 10.00 Weight (Pounds): 163 Objective HEENT: Mild pale conjunctivae. No icterus. CHEST: CTAB HEART: S1 and S2. RRR ABDOMEN: Soft. G-tube in place. Laboratory Tests Test 05/04/19 20:40 05/04/19 22:50 05/05/19 04:15 05/05/19 10:00 Arterial Blood pH 7.437 (7.350-7.450) Arterial Blood Partial Pressure CO2 28.7 mmHg (35.0-45.0) L Arterial Blood Partial Pressure O2 74.4 mmHg (75.0-100.0) L Arterial Blood HCO3 18.9 mmol/L (22.0-26.0) L Arterial Blood Oxygen Saturation 94.3 % (95-100) L Arterial Blood Base Excess -4.1 (-2-2) L Bill Test Positive White Blood Count 17.0 K/UL (4.8-10.8) H 19.2 K/UL (4.8-10.8) H Red Blood Count 3.90 M/UL (4.70-6.10) L 4.07 M/UL (4.70-6.10) L Hemoglobin 10.4 G/DL (14.2-18.0) L 10.9 G/DL (14.2-18.0) L Hematocrit 31.6 % (42.0-52.0) L 33.4 % (42.0-52.0) L Mean Corpuscular Volume 81 FL (80-99) 82 FL (80-99) Mean Corpuscular Hemoglobin 26.6 PG (27.0-31.0) L 26.9 PG (27.0-31.0) L Mean Corpuscular Hemoglobin Concent 32.8 G/DL (32.0-36.0) 32.8 G/DL (32.0-36.0) Red Cell Distribution Width 14.9 % (11.6-14.8) H 15.2 % (11.6-14.8) H Platelet Count 174 K/UL (150-450) 163 K/UL (150-450) Mean Platelet Volume 6.8 FL (6.5-10.1) 7.4 FL (6.5-10.1) Neutrophils (%) (Auto) 83.6 % (45.0-75.0) H % (45.0-75.0) Lymphocytes (%) (Auto) 6.7 % (20.0-45.0) L % (20.0-45.0) Monocytes (%) (Auto) 8.1 % (1.0-10.0) % (1.0-10.0) Eosinophils (%) (Auto) 1.2 % (0.0-3.0) % (0.0-3.0) Basophils (%) (Auto) 0.4 % (0.0-2.0) % (0.0-2.0) Differential Total Cells Counted 100 Neutrophils % (Manual) 74 % (45-75) Lymphocytes % (Manual) 9 % (20-45) L Monocytes % (Manual) 8 % (1-10) Eosinophils % (Manual) 1 % (0-3) Basophils % (Manual) 0 % (0-2) Myelocytes % 6 % (0-0) H Band Neutrophils 2 % (0-8) Platelet Estimate Decreased L Platelet Morphology Normal Polychromasia 1+ Basophilic Stippling 1+ Anisocytosis 1+ Acanthocytes 1+ Sodium Level 151 MMOL/L (136-145) H Potassium Level 4.2 MMOL/L (3.5-5.1) Chloride Level 121 MMOL/L (98-107) H Carbon Dioxide Level 22 MMOL/L (21-32) Anion Gap 8 mmol/L (5-15) Blood Urea Nitrogen 35 mg/dL (7-18) H Creatinine 1.4 MG/DL (0.55-1.30) H Estimat Glomerular Filtration Rate mL/min (>60) Glucose Level 114 MG/DL (74-106) H Lactic Acid Level 2.20 mmol/L (0.4-2.0) H 2.50 mmol/L (0.66-2.22) H Calcium Level 7.8 MG/DL (8.5-10.1) L Phosphorus Level 2.3 MG/DL (2.5-4.9) L Magnesium Level 2.1 MG/DL (1.8-2.4) Total Bilirubin 2.0 MG/DL (0.2-1.0) H Direct Bilirubin 1.5 MG/DL (0.0-0.3) H Aspartate Amino Transf (AST/SGOT) 357 U/L (15-37) H Alanine Aminotransferase (ALT/SGPT) 98 U/L (12-78) H Alkaline Phosphatase 1864 U/L (46-116) H Total Protein 4.6 G/DL (6.4-8.2) L Albumin 1.2 G/DL (3.4-5.0) L Globulin 3.4 g/dL Albumin/Globulin Ratio 0.4 (1.0-2.7) L Cortisol AM Sample 22.3 UG/DL Current Medications Medications (Trade) Dose Ordered Sig/Eric Route PRN Reason Start Time Stop Time Status Last Admin Dose Admin Acetaminophen (Tylenol) 650 mg Q4H PRN ORAL fever 05/05/19 00:30 05/29/19 04:29 Atropine Sulfate (Atropine Opth Kemi) 1 drop Q2H PRN SL excessive secretions 05/05/19 10:45 06/04/19 10:44 Dextrose (Dextrose 50%) 25 ml Q30M PRN IV Hypoglycemia 05/04/19 21:45 05/29/19 21:14 Dextrose (Dextrose 50%) 50 ml Q30M PRN IV Hypoglycemia 05/04/19 21:45 05/29/19 21:14 Dextrose/Sodium Chloride 1,000 ml @ 150 mls/hr Q6H40M IV 05/05/19 10:30 06/04/19 10:29 05/05/19 11:05 Diphenhydramine HCl (Benadryl) 25 mg Q6H PRN ORAL Itching/Pruritis 05/04/19 22:30 05/30/19 04:29 Dopamine HCl/ Dextrose 250 ml @ 0 mls/hr Q24H IV 05/04/19 22:00 06/03/19 21:59 Ertapenem 1 gm/ Sodium Chloride 55 ml @ 110 mls/hr Q24H IVPB 05/05/19 18:00 05/07/19 17:59 Finasteride (Proscar) 5 mg DAILY ORAL 05/05/19 09:00 05/30/19 08:59 05/05/19 08:59 Glycopyrrolate (Robinul) 0.1 mg Q6H PRN IV excessive secretions 05/05/19 10:45 06/04/19 10:44 Haloperidol (Haldol) 1 mg Q30M PRN ORAL Agitation 05/05/19 10:45 06/04/19 10:44 Morphine Sulfate (Morphine 10mg/ 5ml Oral Soln) 5 mg Q3H PRN ORAL Breakthrough Pain 05/05/19 10:45 05/12/19 10:44 Sodium Chloride 1,000 ml @ 999 mls/hr Q1H1M ONCE IV 05/05/19 10:30 05/05/19 11:30 05/05/19 11:05 Tamsulosin HCl (Flomax) 0.4 mg DAILY ORAL 05/05/19 09:00 05/30/19 08:59 05/05/19 08:59 Vancomycin HCl (Vanco rx to dose) 1 ea DAILY PRN MISC Per rx protocol 05/05/19 00:30 06/04/19 00:29 Vancomycin HCl 1 gm/Sodium Chloride 275 ml @ 184 mls/hr Q24H IVPB 05/05/19 22:00 05/10/19 21:59 Rebecca Munoz M.D. May 05, 2019 11:28
--- NOTE | 2019-05-05 11:28 | NUR ---
NURSE NOTES: Patient seen by Dr Munoz and Jimmy(PAPETERIE TABLE ASSEMBLER) and update given on pt status and hospice consult. Will follow up with new orders
--- NOTE | 2019-05-05 11:29 | NUR ---
DISCHARGE SWALLOW/SPEECH THERAPY SUMMARY: PATIENT SEEN FOR DYSPHAGIA, SEE SWALLOW EVAL AND MOD BARIUM SWALLOW STUDY REPORTS AND RECOMMENDATIONS. PLAN: PATIENT HAS A CHANGE IN MEDICAL STATUS AND WAS TRANSFERRED TO ICU (MEDICALLY UNSTABLE). PT TO GO ON HOSPICE PER RN. WILL D/C FROM [employer]CHNICIAN SERVICE AT THIS TIME.
--- NOTE | 2019-05-05 11:39 | NUR ---
NURSE NOTES: organizational development consultant arrived and meeting done with family. Awaiting for further instruction.Order to discharge home under hospice care previously written by Dr Morse, cancelled at this time. Patient kept on close monitoring
--- NOTE | 2019-05-05 14:27 | Diagnostic Imaging Report ---
Indication: Altered level of consciousness Technique: One view of the chest Comparison: 04/29/2019 Findings: Less optimal inspiration currently. There is some hazy opacity in the right midlung which was not evident previously. There is some ill-defined atelectatic changes in the left lung base. The heart size is upper limits normal. Impression: Possible developing hazy right midlung infiltrate, since prior study of 5 days earlier
--- NOTE | 2019-05-05 16:01 | NUR ---
NURSE NOTES:WOUND CARE NOTES:Report received pt has a rapidly evolving sacral pressure injury. Unable to see pt in ICU secondary to pt not stable as per primary nurse. Per discussion with pt's skin decline is likely unavoidable due to end stage disease process. Pt has been placed on comfort measures pending discharge with Hospice.
--- NOTE | 2019-05-05 16:06 | NUR ---
NURSE NOTES: Patient remains in the same declining stage, obtunded and responsive to deep pain.Turned and repositioned.Mouth care done.Kept clean dry and comfortable.Will continue to monitor
--- NOTE | 2019-05-05 16:12 | Hematology/Onc Progress Note ---
Assessment/Plan Assessment/Plan Dr. Naylor requested consultation. # Esophageal mass, s/p biopsy likely adenocarcinoma with many liver mets --> is consistent with esophageal cancer and biopsy report pending --> MRCP/US reviewed noted that the liver have multiple lesions consistent with metastatic neoplasm. --> poor prognosis, is on dnr/hospice # FTT with Severe protein malnutrition --> likely is related to malignancy --> gt inserted per gi on 05/02 --> as per gi recs, ongoing feeds --> appetite stimulant as needed # Coffee ground emesis --> is likely related to ongoing malignancy --> in this case contributor to anemia --> h/h goal >7 --> no evidence of hemolysis # CVA (cerebrovascular accident) --> currently off asa given hematemesis # Elevated LFTs --> likely related to innumerable mets # Oral pharyngeal dysphasia and may benefit from a gastrostomy for nutrition supplementation. --> s/p gtube placement with gi # DNR/Comfort care The timing of this note does not necessarily reflect the time of the patient was seen. Greatly appreciate consultation! Subjective HEENT: Denies: no symptoms, eye pain, blurred vision, tearing, double vision, ear pain, ear discharge, nose pain, nose congestion, throat pain, throat swelling, mouth pain, mouth swelling, other Respiratory: Denies: no symptoms, cough, shortness of breath, SOB with excertion, SOB at rest, sputum, wheezing, other Genitourinary: Denies: no symptoms, burning, discharge, frequency, flank pain, hematuria, incontinence, pain, urgency, other Neurologic/Psychiatric: Denies: no symptoms, anxiety, depressed, emotional problems, headache, numbness, paresthesia, pre-existing deficit, seizure, tingling, tremors, weakness, other Endocrine: Denies: no symptoms, excessive sweating, flushing, intolerance to cold, intolerance to heat, increased hunger, increased thirst, increased urine, unexplained weight gain, unexplained weight loss, other Allergies: Coded Allergies: BENAZEPRIL (Verified Allergy, Unknown, 04/29/19) PENICILLINS (Verified Allergy, Unknown, 04/29/19) TERAZOSIN (Verified Allergy, Unknown, 04/29/19) Subjective 05/05: sherine rn, no events, no bleeding, remains with gt feeds ongoing, imaging noted Objective Objective Current Medications Medications (Trade) Dose Ordered Sig/Eric Route PRN Reason Start Time Stop Time Status Last Admin Dose Admin Acetaminophen (Tylenol) 650 mg Q4H PRN ORAL fever 05/05/19 00:30 05/29/19 04:29 Atropine Sulfate (Atropine Opth Kemi) 1 drop Q2H PRN SL excessive secretions 05/05/19 10:45 06/04/19 10:44 Dextrose (Dextrose 50%) 25 ml Q30M PRN IV Hypoglycemia 05/04/19 21:45 05/29/19 21:14 Dextrose (Dextrose 50%) 50 ml Q30M PRN IV Hypoglycemia 05/04/19 21:45 05/29/19 21:14 Dextrose/Sodium Chloride 1,000 ml @ 150 mls/hr Q6H40M IV 05/05/19 10:30 06/04/19 10:29 05/05/19 11:05 Diphenhydramine HCl (Benadryl) 25 mg Q6H PRN ORAL Itching/Pruritis 05/04/19 22:30 05/30/19 04:29 Dopamine HCl/ Dextrose 250 ml @ 0 mls/hr Q24H IV 05/04/19 22:00 06/03/19 21:59 Ertapenem 1 gm/ Sodium Chloride 55 ml @ 110 mls/hr Q24H IVPB 05/05/19 18:00 05/07/19 17:59 Finasteride (Proscar) 5 mg DAILY ORAL 05/05/19 09:00 05/30/19 08:59 05/05/19 08:59 Glycopyrrolate (Robinul) 0.1 mg Q6H PRN IV excessive secretions 05/05/19 10:45 06/04/19 10:44 Haloperidol (Haldol) 1 mg Q30M PRN ORAL Agitation 05/05/19 10:45 06/04/19 10:44 Morphine Sulfate (Morphine 10mg/ 5ml Oral Soln) 5 mg Q3H PRN ORAL Breakthrough Pain 05/05/19 10:45 05/12/19 10:44 Tamsulosin HCl (Flomax) 0.4 mg DAILY ORAL 05/05/19 09:00 05/30/19 08:59 05/05/19 08:59 Vancomycin HCl (Vanco rx to dose) 1 ea DAILY PRN MISC Per rx protocol 05/05/19 00:30 06/04/19 00:29 Vancomycin HCl 1 gm/Sodium Chloride 275 ml @ 184 mls/hr Q24H IVPB 05/05/19 22:00 05/10/19 21:59 Last 24 Hour Vital Signs Date Time Temp Pulse Resp B/P (MAP) Pulse Ox O2 Delivery O2 Flow Rate FiO2 05/05/19 15:55 98 19 106/69 (81) 36 05/05/19 15:00 97 22 98/73 (81) 100 05/05/19 14:00 99 25 104/75 (85) 97 05/05/19 13:00 98 19 106/69 (81) 36 05/05/19 12:00 89 05/05/19 12:00 Venturi Mask 8.0 05/05/19 12:00 98.6 94 22 85/62 (70) 94 05/05/19 11:00 73 19 96/61 (73) 99 05/05/19 10:00 87 22 94/65 (75) 97 05/05/19 09:00 87 25 109/62 (78) 93 05/05/19 08:00 98.6 94 22 85/62 (70) 94 05/05/19 08:00 93 05/05/19 08:00 Venturi Mask 8.0 05/05/19 07:00 95 27 97/73 (81) 99 05/05/19 06:57 95 Venturi Mask 10.0 45 05/05/19 06:00 88 24 100/71 (81) 99 05/05/19 05:00 88 24 93/67 (76) 99 05/05/19 04:00 99.8 87 24 103/74 (84) 99 05/05/19 04:00 Venturi Mask 8.0 05/05/19 04:00 90 05/05/19 03:00 90 30 115/63 (80) 98 05/05/19 02:00 92 27 123/64 (83) 98 05/05/19 01:09 88 27 115/56 (75) 98 05/05/19 00:00 88 05/05/19 00:00 99.4 89 32 116/69 (85) 100 05/05/19 00:00 Venturi Mask 8.0 05/04/19 23:00 100 30 111/57 (75) 97 05/04/19 22:15 92 27 113/58 (76) 97 05/04/19 22:00 95 28 135/72 (93) 97 05/04/19 22:00 135/72 05/04/19 21:45 98 31 102/56 (71) 97 05/04/19 21:30 92 30 80/57 (65) 97 05/04/19 21:23 96 Venturi Mask 10.0 45 05/04/19 21:15 95 30 95/62 (73) 96 05/04/19 21:00 98.7 98 28 82/54 (63) 88 05/04/19 21:00 98 05/04/19 21:00 Nasal Cannula 4.0 05/04/19 20:00 97.0 22 80/50 (60) 95 05/04/19 20:00 98 Nasal Cannula 3.0 32 05/04/19 16:00 98.4 98 19 106/59 (75) 94 05/04/19 12:00 98.4 102 17 95/67 (76) 93 05/04/19 09:00 Nasal Cannula 2.0 05/04/19 08:00 98.4 93 17 101/59 (73) 93 05/04/19 07:26 97 Nasal Cannula 3.0 32 05/04/19 04:00 98.4 98 20 94/65 (75) 92 05/04/19 00:00 97.5 95 20 101/65 (77) 93 05/03/19 21:00 Nasal Cannula 2.0 05/03/19 20:00 97.9 95 20 99/66 (77) 94 05/03/19 20:00 93 Nasal Cannula 2.0 28 Intake and Output 05/04/19 05/05/19 19:00 07:00 Intake Total 1280 ml 1460.0 ml Output Total 450 ml Balance 1280 ml 1010.0 ml Intake Free Water 500 ml 500 ml IV Total 840.0 ml Tube Feeding 780 ml 120 ml Output Urine Total 450 ml Labs Test 05/04/19 05:30 05/04/19 20:40 05/04/19 22:50 05/05/19 04:15 White Blood Count 15.7 K/UL (4.8-10.8) 17.0 K/UL (4.8-10.8) 19.2 K/UL (4.8-10.8) Red Blood Count 4.31 M/UL (4.70-6.10) 3.90 M/UL (4.70-6.10) 4.07 M/UL (4.70-6.10) Hemoglobin 11.6 G/DL (14.2-18.0) 10.4 G/DL (14.2-18.0) 10.9 G/DL (14.2-18.0) Hematocrit 35.2 % (42.0-52.0) 31.6 % (42.0-52.0) 33.4 % (42.0-52.0) Mean Corpuscular Volume 82 FL (80-99) 81 FL (80-99) 82 FL (80-99) Mean Corpuscular Hemoglobin 26.8 PG (27.0-31.0) 26.6 PG (27.0-31.0) 26.9 PG (27.0-31.0) Mean Corpuscular Hemoglobin Concent 32.8 G/DL (32.0-36.0) 32.8 G/DL (32.0-36.0) 32.8 G/DL (32.0-36.0) Red Cell Distribution Width 14.5 % (11.6-14.8) 14.9 % (11.6-14.8) 15.2 % (11.6-14.8) Platelet Count 210 K/UL (150-450) 174 K/UL (150-450) 163 K/UL (150-450) Mean Platelet Volume 6.4 FL (6.5-10.1) 6.8 FL (6.5-10.1) 7.4 FL (6.5-10.1) Neutrophils (%) (Auto) 84.0 % (45.0-75.0) 83.6 % (45.0-75.0) % (45.0-75.0) Lymphocytes (%) (Auto) 6.8 % (20.0-45.0) 6.7 % (20.0-45.0) % (20.0-45.0) Monocytes (%) (Auto) 8.0 % (1.0-10.0) 8.1 % (1.0-10.0) % (1.0-10.0) Eosinophils (%) (Auto) 0.7 % (0.0-3.0) 1.2 % (0.0-3.0) % (0.0-3.0) Basophils (%) (Auto) 0.5 % (0.0-2.0) 0.4 % (0.0-2.0) % (0.0-2.0) Sodium Level 152 MMOL/L (136-145) 151 MMOL/L (136-145) Potassium Level 4.1 MMOL/L (3.5-5.1) 4.2 MMOL/L (3.5-5.1) Chloride Level 120 MMOL/L (98-107) 121 MMOL/L (98-107) Carbon Dioxide Level 20 MMOL/L (21-32) 22 MMOL/L (21-32) Anion Gap 12 mmol/L (5-15) 8 mmol/L (5-15) Blood Urea Nitrogen 25 mg/dL (7-18) 35 mg/dL (7-18) Creatinine 1.3 MG/DL (0.55-1.30) 1.4 MG/DL (0.55-1.30) Estimat Glomerular Filtration Rate mL/min (>60) mL/min (>60) Glucose Level 131 MG/DL (74-106) 114 MG/DL (74-106) Calcium Level 7.9 MG/DL (8.5-10.1) 7.8 MG/DL (8.5-10.1) Arterial Blood pH 7.437 (7.350-7.450) Arterial Blood Partial Pressure CO2 28.7 mmHg (35.0-45.0) Arterial Blood Partial Pressure O2 74.4 mmHg (75.0-100.0) Arterial Blood HCO3 18.9 mmol/L (22.0-26.0) Arterial Blood Oxygen Saturation 94.3 % (95-100) Arterial Blood Base Excess -4.1 (-2-2) Bill Test Positive Differential Total Cells Counted 100 Neutrophils % (Manual) 74 % (45-75) Lymphocytes % (Manual) 9 % (20-45) Monocytes % (Manual) 8 % (1-10) Eosinophils % (Manual) 1 % (0-3) Basophils % (Manual) 0 % (0-2) Myelocytes % 6 % (0-0) Band Neutrophils 2 % (0-8) Platelet Estimate Decreased Platelet Morphology Normal Polychromasia 1+ Basophilic Stippling 1+ Anisocytosis 1+ Acanthocytes 1+ Lactic Acid Level 2.20 mmol/L (0.4-2.0) Phosphorus Level 2.3 MG/DL (2.5-4.9) Magnesium Level 2.1 MG/DL (1.8-2.4) Total Bilirubin 2.0 MG/DL (0.2-1.0) Direct Bilirubin 1.5 MG/DL (0.0-0.3) Aspartate Amino Transf (AST/SGOT) 357 U/L (15-37) Alanine Aminotransferase (ALT/SGPT) 98 U/L (12-78) Alkaline Phosphatase 1864 U/L (46-116) Total Protein 4.6 G/DL (6.4-8.2) Albumin 1.2 G/DL (3.4-5.0) Globulin 3.4 g/dL Albumin/Globulin Ratio 0.4 (1.0-2.7) Cortisol AM Sample 22.3 UG/DL Test 05/05/19 10:00 Lactic Acid Level 2.50 mmol/L (0.66-2.22) Height (Feet): 5 Height (Inches): 10.00 Weight (Pounds): 163 Objective Physical Exam General Appearance: A+O x3, NAD HEENT: normocephalic, atraumatic Neck: non-tender, normal alignment Respiratory/Chest: chest wall non-tender, lungs clear Cardiovascular/Chest: normal peripheral pulses, normal rate Abdomen: normal bowel sounds, non tender Ext: no cce Miguel Ludwig MD May 05, 2019 16:12
--- NOTE | 2019-05-05 17:30 | NUR ---
[employer]ING [employer] NOTES INQUIRY FAXED TO [facility], ADMISSIONS CLOSED FOR TODAY. LEFT A MESSAGE FOR CALL BACK IN AM WITH BED ASSIGNMENT. WILL FOLLOW UP IN AM.
[2019-05-05] MEDS ORDERED: Ertapenem 1 GM in NS 55 ML IVPB SCH (18:00)
--- NOTE | 2019-05-05 18:45 | Internal Med Progress Note ---
Subjective Date of Service: May 05, 2019 Physician Name Betito Naylor Attending Physician Dionte Duenas MD Current Medications Medications (Trade) Dose Ordered Sig/Eric Route PRN Reason Start Time Stop Time Status Last Admin Dose Admin Acetaminophen (Tylenol) 650 mg Q4H PRN ORAL fever 05/05/19 00:30 05/29/19 04:29 Atropine Sulfate (Atropine Opth Kemi) 1 drop Q2H PRN SL excessive secretions 05/05/19 10:45 06/04/19 10:44 Dextrose (Dextrose 50%) 25 ml Q30M PRN IV Hypoglycemia 05/04/19 21:45 05/29/19 21:14 Dextrose (Dextrose 50%) 50 ml Q30M PRN IV Hypoglycemia 05/04/19 21:45 05/29/19 21:14 Dextrose/Sodium Chloride 1,000 ml @ 150 mls/hr Q6H40M IV 05/05/19 10:30 06/04/19 10:29 05/05/19 18:17 Diphenhydramine HCl (Benadryl) 25 mg Q6H PRN ORAL Itching/Pruritis 05/04/19 22:30 05/30/19 04:29 Dopamine HCl/ Dextrose 250 ml @ 0 mls/hr Q24H IV 05/04/19 22:00 06/03/19 21:59 Ertapenem 1 gm/ Sodium Chloride 55 ml @ 110 mls/hr Q24H IVPB 05/05/19 18:00 05/07/19 17:59 05/05/19 18:17 Finasteride (Proscar) 5 mg DAILY ORAL 05/05/19 09:00 05/30/19 08:59 05/05/19 08:59 Glycopyrrolate (Robinul) 0.1 mg Q6H PRN IV excessive secretions 05/05/19 10:45 06/04/19 10:44 Haloperidol (Haldol) 1 mg Q30M PRN ORAL Agitation 05/05/19 10:45 06/04/19 10:44 Morphine Sulfate (Morphine 10mg/ 5ml Oral Soln) 5 mg Q3H PRN ORAL Breakthrough Pain 05/05/19 10:45 05/12/19 10:44 Tamsulosin HCl (Flomax) 0.4 mg DAILY ORAL 05/05/19 09:00 05/30/19 08:59 05/05/19 08:59 Vancomycin HCl (Vanco rx to dose) 1 ea DAILY PRN MISC Per rx protocol 05/05/19 00:30 06/04/19 00:29 Vancomycin HCl 1 gm/Sodium Chloride 275 ml @ 184 mls/hr Q24H IVPB 05/05/19 22:00 05/10/19 21:59 Allergies: Coded Allergies: BENAZEPRIL (Verified Allergy, Unknown, 04/29/19) PENICILLINS (Verified Allergy, Unknown, 04/29/19) TERAZOSIN (Verified Allergy, Unknown, 04/29/19) ROS Limited/Unobtainable: Yes Subjective 74 YO M admitted with upper GI bleed. Now esophageal mass with liver masses. Cover for Int Med-Dr. Duenas. S/P endoscopy and PEG placement 05/02/19. ICU Objective Last Vital Signs Date Time Temp Pulse Resp B/P (MAP) Pulse Ox O2 Delivery O2 Flow Rate FiO2 05/05/19 18:00 99 23 106/72 (83) 98 05/05/19 16:00 Venturi Mask 8.0 05/05/19 16:00 98.4 05/05/19 06:57 45 Laboratory Tests Test 05/04/19 20:40 05/04/19 22:50 05/05/19 04:15 05/05/19 10:00 Arterial Blood pH 7.437 (7.350-7.450) Arterial Blood Partial Pressure CO2 28.7 mmHg (35.0-45.0) L Arterial Blood Partial Pressure O2 74.4 mmHg (75.0-100.0) L Arterial Blood HCO3 18.9 mmol/L (22.0-26.0) L Arterial Blood Oxygen Saturation 94.3 % (95-100) L Arterial Blood Base Excess -4.1 (-2-2) L Bill Test Positive White Blood Count 17.0 K/UL (4.8-10.8) H 19.2 K/UL (4.8-10.8) H Red Blood Count 3.90 M/UL (4.70-6.10) L 4.07 M/UL (4.70-6.10) L Hemoglobin 10.4 G/DL (14.2-18.0) L 10.9 G/DL (14.2-18.0) L Hematocrit 31.6 % (42.0-52.0) L 33.4 % (42.0-52.0) L Mean Corpuscular Volume 81 FL (80-99) 82 FL (80-99) Mean Corpuscular Hemoglobin 26.6 PG (27.0-31.0) L 26.9 PG (27.0-31.0) L Mean Corpuscular Hemoglobin Concent 32.8 G/DL (32.0-36.0) 32.8 G/DL (32.0-36.0) Red Cell Distribution Width 14.9 % (11.6-14.8) H 15.2 % (11.6-14.8) H Platelet Count 174 K/UL (150-450) 163 K/UL (150-450) Mean Platelet Volume 6.8 FL (6.5-10.1) 7.4 FL (6.5-10.1) Neutrophils (%) (Auto) 83.6 % (45.0-75.0) H % (45.0-75.0) Lymphocytes (%) (Auto) 6.7 % (20.0-45.0) L % (20.0-45.0) Monocytes (%) (Auto) 8.1 % (1.0-10.0) % (1.0-10.0) Eosinophils (%) (Auto) 1.2 % (0.0-3.0) % (0.0-3.0) Basophils (%) (Auto) 0.4 % (0.0-2.0) % (0.0-2.0) Differential Total Cells Counted 100 Neutrophils % (Manual) 74 % (45-75) Lymphocytes % (Manual) 9 % (20-45) L Monocytes % (Manual) 8 % (1-10) Eosinophils % (Manual) 1 % (0-3) Basophils % (Manual) 0 % (0-2) Myelocytes % 6 % (0-0) H Band Neutrophils 2 % (0-8) Platelet Estimate Decreased L Platelet Morphology Normal Polychromasia 1+ Basophilic Stippling 1+ Anisocytosis 1+ Acanthocytes 1+ Sodium Level 151 MMOL/L (136-145) H Potassium Level 4.2 MMOL/L (3.5-5.1) Chloride Level 121 MMOL/L (98-107) H Carbon Dioxide Level 22 MMOL/L (21-32) Anion Gap 8 mmol/L (5-15) Blood Urea Nitrogen 35 mg/dL (7-18) H Creatinine 1.4 MG/DL (0.55-1.30) H Estimat Glomerular Filtration Rate mL/min (>60) Glucose Level 114 MG/DL (74-106) H Lactic Acid Level 2.20 mmol/L (0.4-2.0) H 2.50 mmol/L (0.66-2.22) H Calcium Level 7.8 MG/DL (8.5-10.1) L Phosphorus Level 2.3 MG/DL (2.5-4.9) L Magnesium Level 2.1 MG/DL (1.8-2.4) Total Bilirubin 2.0 MG/DL (0.2-1.0) H Direct Bilirubin 1.5 MG/DL (0.0-0.3) H Aspartate Amino Transf (AST/SGOT) 357 U/L (15-37) H Alanine Aminotransferase (ALT/SGPT) 98 U/L (12-78) H Alkaline Phosphatase 1864 U/L (46-116) H Total Protein 4.6 G/DL (6.4-8.2) L Albumin 1.2 G/DL (3.4-5.0) L Globulin 3.4 g/dL Albumin/Globulin Ratio 0.4 (1.0-2.7) L Cortisol AM Sample 22.3 UG/DL Intake and Output 05/04/19 05/05/19 19:00 07:00 Intake Total 1280 ml 1460.0 ml Output Total 450 ml Balance 1280 ml 1010.0 ml Intake Free Water 500 ml 500 ml IV Total 840.0 ml Tube Feeding 780 ml 120 ml Output Urine Total 450 ml Objective PHYSICAL EXAMINATION: GENERAL: The patient is well-developed and well-nourished, thin-appearing white male, in no apparent distress. HEENT: Eyes, pupils are equal and responsive to light and accommodation. Extraocular movements are intact. NECK: Supple without lymphadenopathy. CHEST: venturi mask; Lungs with scattered wheezes and bibasilar rales. CARDIOVASCULAR: Regular rate. S1 and S2 normal without murmurs, rubs, or gallops. ABDOMEN: Soft, nontender, nondistended. Positive bowel sounds. No evidence of hepatosplenomegaly. Currently, no rebound or guarding noted. EXTREMITIES: Negative for clubbing, cyanosis, or edema. RECTAL: Not performed. GENITALIA: Not performed. NEUROLOGIC: Cranial nerves II through XII are grossly intact without focal deficits. Motor strength is 5/5 bilaterally. Deep tendon reflexes are 2+ plantar. Assessment/Plan Assessment/Plan ASSESSMENT: This is a 74-year-old male. 1. Upper gastrointestinal hemorrhage. 2. Elevated liver enzymes. 3. Liver masses. 4. Gastroesophageal reflux disease. 5. Hypercholesterolemia. 6. Hypertension. 7. Benign prostatic hypertrophy. 8. New right Pneumonia 9. esophageal mass with Liver masses 10. dysphagia TREATMENT: 1. Elevated liver enzymes/upper gastrointestinal hemorrhage. Gastroenterology consultation obtained with Dr. Martínez Olsen. An endoscopy has been scheduled. We will follow recommendations of Gastroenterology. Elevated liver enzymes may be secondary to liver masses secondary to metastatic disease. 2. Liver masses. See discussion above. 3. Gastroesophageal reflux disease. The patient has been placed on Protonix. 4. Hypercholesterolemia. Continue atorvastatin. 5. Hypertension. The patient is currently hypotensive due to hypovolemia. 6. Benign prostatic hypertrophy. Continue Flomax as above. 7. ABX=ertapenem and vanco 8. S/P endoscopy and PEG 05/02/19. 9. Await pathology report 10. Oncology=Betito Corrigan MD May 05, 2019 18:45
--- NOTE | 2019-05-05 18:51 | NUR ---
NURSE NOTES: ADLs done, patient turned and repositioned for skin management.Mouth care done.Vital signs remains unchanged at this time with no neurological changed.Will continue close monitoring.Pt kept clean,dry and comfortable.Call light within easy reach
--- NOTE | 2019-05-05 19:14 | NUR ---
NURSE NOTES: Received bedside report from ELSA Orr.Patient obtunded,tolerated Vent.Mask@45% Sat O2 100%,ST on bus monitor,B/P 97/69,Pt NPO,BS active in all quadrants,IV asymptomatic intact on L hand(2) and L wrist 22G running w/D 5 NS @150ml/hr,HOB elevated,bed in a low safety position,call light within a reach,will continue to monitor and follow POC.
--- NOTE | 2019-05-05 20:03 | NUR ---
HAND-OFF: Report given to ELSA VELASCO.
[2019-05-05] MEDS ORDERED: Vancomycin 1 GM in NS 275 ML IVPB SCH (22:00)
--- NOTE | 2019-05-05 22:30 | NUR ---
NURSE NOTES: All IV fluids D/C by doctor's order,pt stable,turned and repositioned,B/P stable 95/70,HR 102,HOB elevated,will continue to monitor.
[2019-05-06] VITALS (16 sets, daily range): BP systolic 62–113; BP diastolic 48–79
--- NOTE | 2019-05-06 | NUR ---
NURSE NOTES: HOB elevated,pt removed Vent Mask all the time,pt desaturated 86%,after reapplied mask Sat O2 95-98%.Will continue to monitor
--- NOTE | 2019-05-06 02:30 | NUR ---
NURSE NOTES: Pt.cleaned and repositioned,urinary pouch applied,pt shows s/s of pain,morphine administered PO.
--- NOTE | 2019-05-06 04:27 | NUR ---
NURSE NOTES: Mouth care provided,pt stable,cleaned,turned and repositioned.HOB elevated to prevent aspiration.
[2019-05-06 06:20] LABS: HEMOGLOBIN 11.1 G/DL (14.2-18.0); MEAN CORPUSCULAR VOLUME 82 FL (80-99); PLATELET COUNT 163 K/UL (150-450); RED BLOOD COUNT 4.14 M/UL (4.70-6.10); RED CELL DISTRIBUTION WIDTH 15.2 % (11.6-14.8)
--- NOTE | 2019-05-06 06:27 | NUR ---
NURSE NOTES: V/S unstable,patient clean and dry in comfortable position.Will continue to monitor.
[2019-05-06 06:37] LABS: ANION GAP 11 mmol/L (5-15); BLOOD UREA NITROGEN 28 mg/dL (7-18); CALCIUM 7.6 MG/DL (8.5-10.1); CARBON DIOXIDE 19 MMOL/L (21-32); CHLORIDE 122 MMOL/L (98-107); CREATININE 1.2 MG/DL (0.55-1.30); POTASSIUM 4.1 MMOL/L (3.5-5.1); SODIUM 152 MMOL/L (136-145)
--- NOTE | 2019-05-06 06:55 | General Progress Note ---
Assessment/Plan Problem List: (1) Coffee ground emesis ICD Codes: K92.0 - Hematemesis SNOMED: 20361626 (2) Elevated LFTs ICD Codes: R94.5 - Abnormal results of liver function studies SNOMED: 369747314, 413761257 (3) Severe malnutrition ICD Codes: E43 - Unspecified severe protein-calorie malnutrition SNOMED: 18430042 (4) Metastatic disease ICD Codes: C79.9 - Secondary malignant neoplasm of unspecified site SNOMED: 205194461 (5) Primary cancer of esophagus with metastasis to other site ICD Codes: C15.9 - Malignant neoplasm of esophagus, unspecified SNOMED: 122752751, 192481548 (6) UGIB (upper gastrointestinal bleed) ICD Codes: K92.2 - Gastrointestinal hemorrhage, unspecified SNOMED: 05186777 Status: unchanged Assessment/Plan: GTF on hold given patient is comfort care only pending hospice placement Subjective ROS Limited/Unobtainable: No Allergies: Coded Allergies: BENAZEPRIL (Verified Allergy, Unknown, 04/29/19) PENICILLINS (Verified Allergy, Unknown, 04/29/19) TERAZOSIN (Verified Allergy, Unknown, 04/29/19) Objective Last 24 Hour Vital Signs Date Time Temp Pulse Resp B/P (MAP) Pulse Ox O2 Delivery O2 Flow Rate FiO2 05/06/19 06:00 97 21 78/52 (61) 94 05/06/19 05:00 97.9 95 24 88/53 (65) 95 05/06/19 04:00 Venturi Mask 8.0 05/06/19 04:00 97 25 102/70 (81) 97 05/06/19 04:00 92 05/06/19 03:11 92 05/06/19 03:00 97 25 84/58 (67) 88 05/06/19 02:00 107 31 113/79 (90) 88 05/06/19 01:00 103 30 95/70 (78) 92 05/06/19 00:00 Venturi Mask 8.0 05/06/19 00:00 93 14 89/65 (73) 98 05/05/19 23:41 110 05/05/19 23:00 98.1 99 28 115/80 (92) 86 05/05/19 22:00 94 25 98/70 (79) 98 05/05/19 21:00 96 41 97/69 (78) 99 05/05/19 20:00 Venturi Mask 8.0 05/05/19 20:00 98.5 99 29 91/67 (75) 98 05/05/19 19:46 92 05/05/19 19:00 97 24 97/69 (78) 99 05/05/19 18:58 100 Venturi Mask 10.0 45 05/05/19 18:00 99 23 106/72 (83) 98 05/05/19 17:00 102 27 101/74 (83) 99 05/05/19 16:00 Venturi Mask 8.0 05/05/19 16:00 97 05/05/19 16:00 98.4 98 24 110/87 (95) 99 05/05/19 15:55 98 19 106/69 (81) 36 05/05/19 15:00 97 22 98/73 (81) 100 05/05/19 14:00 99 25 104/75 (85) 97 05/05/19 13:00 98 19 106/69 (81) 36 05/05/19 12:00 89 05/05/19 12:00 Venturi Mask 8.0 05/05/19 12:00 98.6 94 22 85/62 (70) 94 05/05/19 11:00 73 19 96/61 (73) 99 05/05/19 10:00 87 22 94/65 (75) 97 05/05/19 09:00 87 25 109/62 (78) 93 05/05/19 08:00 98.6 94 22 85/62 (70) 94 05/05/19 08:00 93 05/05/19 08:00 Venturi Mask 8.0 05/05/19 07:00 95 27 97/73 (81) 99 05/05/19 06:57 95 Venturi Mask 10.0 45 Intake and Output 05/05/19 05/06/19 19:00 07:00 Intake Total 1995 ml 400 ml Output Total 503 ml 335 ml Balance 1492 ml 65 ml Intake Free Water 400 ml IV Total 1975 ml Tube Feeding 20 ml Output Urine Total 503 ml 335 ml Laboratory Tests 05/05/19 10:00: Lactic Acid Level 2.50H 05/06/19 05:00: White Blood Count [Pending], Red Blood Count [Pending], Hemoglobin [Pending], Hematocrit [Pending], Mean Corpuscular Volume [Pending], Mean Corpuscular Hemoglobin [Pending], Mean Corpuscular Hemoglobin Concent [Pending], Red Cell Distribution Width [Pending], Platelet Count [Pending], Mean Platelet Volume [ Pending], Neutrophils (%) (Auto) [Pending], Lymphocytes (%) (Auto) [Pending], Monocytes (%) (Auto) [Pending], Eosinophils (%) (Auto) [Pending], Basophils (%) (Auto) [Pending], Sodium Level 152H, Potassium Level 4.1, Chloride Level 122H, Carbon Dioxide Level 19L, Anion Gap 11, Blood Urea Nitrogen 28H, Creatinine 1.2 , Estimat Glomerular Filtration Rate , Glucose Level 80, Calcium Level 7.6L Height (Feet): 5 Height (Inches): 10.00 Weight (Pounds): 165 General Appearance: lethargic EENT: normal ENT inspection Neck: supple Cardiovascular: normal rate Respiratory/Chest: decreased breath sounds Abdomen: normal bowel sounds, non tender, soft Extremities: non-tender Martínez Olsen MD May 06, 2019 06:55
--- NOTE | 2019-05-06 07:03 | Hematology/Onc Progress Note ---
Assessment/Plan Assessment/Plan Dr. Naylor requested consultation. # Esophageal mass, s/p biopsy likely adenocarcinoma with many liver mets --> is consistent with esophageal cancer and biopsy report pending --> MRCP/US reviewed noted that the liver have multiple lesions consistent with metastatic neoplasm. --> poor prognosis, is on dnr/hospice # FTT with Severe protein malnutrition --> likely is related to malignancy --> gt inserted per gi on 05/02 --> as per gi recs, tfs are on hold --> appetite stimulant as needed # Coffee ground emesis --> is likely related to ongoing malignancy --> in this case contributor to anemia --> h/h goal >7 --> no evidence of hemolysis # CVA (cerebrovascular accident) --> currently off asa given hematemesis # Elevated LFTs --> likely related to innumerable mets # Oral pharyngeal dysphasia and may benefit from a gastrostomy for nutrition supplementation. --> s/p gtube placement with gi # DNR/Comfort care --> morphine started The timing of this note does not necessarily reflect the time of the patient was seen. Greatly appreciate consultation! Subjective Constitutional: Denies: no symptoms, chills, fever, malaise, weakness, other HEENT: Denies: no symptoms, eye pain, blurred vision, tearing, double vision, ear pain, ear discharge, nose pain, nose congestion, throat pain, throat swelling, mouth pain, mouth swelling, other Cardiovascular: Denies: no symptoms, chest pain, edema, irregular heart rate, lightheadedness, palpitations, syncope, other Respiratory: Denies: no symptoms, cough, shortness of breath, SOB with excertion, SOB at rest, sputum, wheezing, other Gastrointestinal/Abdominal: Denies: no symptoms, abdomen distended, abdominal pain, black stools, tarry stools, blood in stool, constipated, diarrhea, difficulty swallowing, nausea, poor appetite, poor fluid intake, rectal bleeding , vomiting, other Genitourinary: Denies: no symptoms, burning, discharge, frequency, flank pain, hematuria, incontinence, pain, urgency, other Allergies: Coded Allergies: BENAZEPRIL (Verified Allergy, Unknown, 04/29/19) PENICILLINS (Verified Allergy, Unknown, 04/29/19) TERAZOSIN (Verified Allergy, Unknown, 04/29/19) Subjective 05/05: dw rn, no events, no bleeding, remains with gt feeds ongoing, imaging noted 05/06: no events, start on morphine last night, seen with Gi, gt feeds on hold Objective Objective Current Medications Medications (Trade) Dose Ordered Sig/Eric Route PRN Reason Start Time Stop Time Status Last Admin Dose Admin Acetaminophen (Tylenol) 650 mg Q4H PRN ORAL fever 05/05/19 00:30 05/29/19 04:29 Atropine Sulfate (Atropine Opth Kemi) 1 drop Q2H PRN SL excessive secretions 05/05/19 10:45 06/04/19 10:44 Finasteride (Proscar) 5 mg DAILY ORAL 05/05/19 09:00 05/30/19 08:59 05/05/19 08:59 Glycopyrrolate (Robinul) 0.1 mg Q6H PRN IV excessive secretions 05/05/19 10:45 06/04/19 10:44 Haloperidol (Haldol) 1 mg Q30M PRN ORAL Agitation 05/05/19 10:45 06/04/19 10:44 Morphine Sulfate (Morphine 10mg/ 5ml Oral Soln) 5 mg Q3H PRN ORAL Breakthrough Pain 05/05/19 10:45 05/12/19 10:44 05/06/19 02:32 Tamsulosin HCl (Flomax) 0.4 mg DAILY ORAL 05/05/19 09:00 05/30/19 08:59 05/05/19 08:59 Last 24 Hour Vital Signs Date Time Temp Pulse Resp B/P (MAP) Pulse Ox O2 Delivery O2 Flow Rate FiO2 05/06/19 06:57 100 Venturi Mask 10.0 45 05/06/19 06:00 97 21 78/52 (61) 94 05/06/19 05:00 97.9 95 24 88/53 (65) 95 05/06/19 04:00 Venturi Mask 8.0 05/06/19 04:00 97 25 102/70 (81) 97 05/06/19 04:00 92 05/06/19 03:11 92 05/06/19 03:00 97 25 84/58 (67) 88 05/06/19 02:00 107 31 113/79 (90) 88 05/06/19 01:00 103 30 95/70 (78) 92 05/06/19 00:00 Venturi Mask 8.0 05/06/19 00:00 93 14 89/65 (73) 98 05/05/19 23:41 110 05/05/19 23:00 98.1 99 28 115/80 (92) 86 05/05/19 22:00 94 25 98/70 (79) 98 05/05/19 21:00 96 41 97/69 (78) 99 05/05/19 20:00 Venturi Mask 8.0 05/05/19 20:00 98.5 99 29 91/67 (75) 98 05/05/19 19:46 92 05/05/19 19:00 97 24 97/69 (78) 99 05/05/19 18:58 100 Venturi Mask 10.0 45 05/05/19 18:00 99 23 106/72 (83) 98 05/05/19 17:00 102 27 101/74 (83) 99 05/05/19 16:00 Venturi Mask 8.0 05/05/19 16:00 97 05/05/19 16:00 98.4 98 24 110/87 (95) 99 05/05/19 15:55 98 19 106/69 (81) 36 05/05/19 15:00 97 22 98/73 (81) 100 05/05/19 14:00 99 25 104/75 (85) 97 05/05/19 13:00 98 19 106/69 (81) 36 05/05/19 12:00 89 05/05/19 12:00 Venturi Mask 8.0 05/05/19 12:00 98.6 94 22 85/62 (70) 94 05/05/19 11:00 73 19 96/61 (73) 99 05/05/19 10:00 87 22 94/65 (75) 97 05/05/19 09:00 87 25 109/62 (78) 93 05/05/19 08:00 98.6 94 22 85/62 (70) 94 05/05/19 08:00 93 05/05/19 08:00 Venturi Mask 8.0 05/05/19 07:00 95 27 97/73 (81) 99 05/05/19 06:57 95 Venturi Mask 10.0 45 05/05/19 06:00 88 24 100/71 (81) 99 05/05/19 05:00 88 24 93/67 (76) 99 05/05/19 04:00 99.8 87 24 103/74 (84) 99 05/05/19 04:00 Venturi Mask 8.0 05/05/19 04:00 90 05/05/19 03:00 90 30 115/63 (80) 98 05/05/19 02:00 92 27 123/64 (83) 98 05/05/19 01:09 88 27 115/56 (75) 98 05/05/19 00:00 88 05/05/19 00:00 99.4 89 32 116/69 (85) 100 05/05/19 00:00 Venturi Mask 8.0 05/04/19 23:00 100 30 111/57 (75) 97 05/04/19 22:15 92 27 113/58 (76) 97 05/04/19 22:00 95 28 135/72 (93) 97 05/04/19 22:00 135/72 05/04/19 21:45 98 31 102/56 (71) 97 05/04/19 21:30 92 30 80/57 (65) 97 05/04/19 21:23 96 Venturi Mask 10.0 45 05/04/19 21:15 95 30 95/62 (73) 96 05/04/19 21:00 98.7 98 28 82/54 (63) 88 05/04/19 21:00 98 05/04/19 21:00 Nasal Cannula 4.0 05/04/19 20:00 97.0 22 80/50 (60) 95 05/04/19 20:00 98 Nasal Cannula 3.0 32 05/04/19 16:00 98.4 98 19 106/59 (75) 94 05/04/19 12:00 98.4 102 17 95/67 (76) 93 05/04/19 09:00 Nasal Cannula 2.0 05/04/19 08:00 98.4 93 17 101/59 (73) 93 05/04/19 07:26 97 Nasal Cannula 3.0 32 Intake and Output 05/05/19 05/06/19 19:00 07:00 Intake Total 1995 ml 400 ml Output Total 503 ml 335 ml Balance 1492 ml 65 ml Intake Free Water 400 ml IV Total 1975 ml Tube Feeding 20 ml Output Urine Total 503 ml 335 ml Labs Test 05/04/19 05:30 05/04/19 20:40 05/04/19 22:50 05/05/19 04:15 White Blood Count 15.7 K/UL (4.8-10.8) 17.0 K/UL (4.8-10.8) 19.2 K/UL (4.8-10.8) Red Blood Count 4.31 M/UL (4.70-6.10) 3.90 M/UL (4.70-6.10) 4.07 M/UL (4.70-6.10) Hemoglobin 11.6 G/DL (14.2-18.0) 10.4 G/DL (14.2-18.0) 10.9 G/DL (14.2-18.0) Hematocrit 35.2 % (42.0-52.0) 31.6 % (42.0-52.0) 33.4 % (42.0-52.0) Mean Corpuscular Volume 82 FL (80-99) 81 FL (80-99) 82 FL (80-99) Mean Corpuscular Hemoglobin 26.8 PG (27.0-31.0) 26.6 PG (27.0-31.0) 26.9 PG (27.0-31.0) Mean Corpuscular Hemoglobin Concent 32.8 G/DL (32.0-36.0) 32.8 G/DL (32.0-36.0) 32.8 G/DL (32.0-36.0) Red Cell Distribution Width 14.5 % (11.6-14.8) 14.9 % (11.6-14.8) 15.2 % (11.6-14.8) Platelet Count 210 K/UL (150-450) 174 K/UL (150-450) 163 K/UL (150-450) Mean Platelet Volume 6.4 FL (6.5-10.1) 6.8 FL (6.5-10.1) 7.4 FL (6.5-10.1) Neutrophils (%) (Auto) 84.0 % (45.0-75.0) 83.6 % (45.0-75.0) % (45.0-75.0) Lymphocytes (%) (Auto) 6.8 % (20.0-45.0) 6.7 % (20.0-45.0) % (20.0-45.0) Monocytes (%) (Auto) 8.0 % (1.0-10.0) 8.1 % (1.0-10.0) % (1.0-10.0) Eosinophils (%) (Auto) 0.7 % (0.0-3.0) 1.2 % (0.0-3.0) % (0.0-3.0) Basophils (%) (Auto) 0.5 % (0.0-2.0) 0.4 % (0.0-2.0) % (0.0-2.0) Sodium Level 152 MMOL/L (136-145) 151 MMOL/L (136-145) Potassium Level 4.1 MMOL/L (3.5-5.1) 4.2 MMOL/L (3.5-5.1) Chloride Level 120 MMOL/L (98-107) 121 MMOL/L (98-107) Carbon Dioxide Level 20 MMOL/L (21-32) 22 MMOL/L (21-32) Anion Gap 12 mmol/L (5-15) 8 mmol/L (5-15) Blood Urea Nitrogen 25 mg/dL (7-18) 35 mg/dL (7-18) Creatinine 1.3 MG/DL (0.55-1.30) 1.4 MG/DL (0.55-1.30) Estimat Glomerular Filtration Rate mL/min (>60) mL/min (>60) Glucose Level 131 MG/DL (74-106) 114 MG/DL (74-106) Calcium Level 7.9 MG/DL (8.5-10.1) 7.8 MG/DL (8.5-10.1) Arterial Blood pH 7.437 (7.350-7.450) Arterial Blood Partial Pressure CO2 28.7 mmHg (35.0-45.0) Arterial Blood Partial Pressure O2 74.4 mmHg (75.0-100.0) Arterial Blood HCO3 18.9 mmol/L (22.0-26.0) Arterial Blood Oxygen Saturation 94.3 % (95-100) Arterial Blood Base Excess -4.1 (-2-2) Bill Test Positive Differential Total Cells Counted 100 Neutrophils % (Manual) 74 % (45-75) Lymphocytes % (Manual) 9 % (20-45) Monocytes % (Manual) 8 % (1-10) Eosinophils % (Manual) 1 % (0-3) Basophils % (Manual) 0 % (0-2) Myelocytes % 6 % (0-0) Band Neutrophils 2 % (0-8) Platelet Estimate Decreased Platelet Morphology Normal Polychromasia 1+ Basophilic Stippling 1+ Anisocytosis 1+ Acanthocytes 1+ Lactic Acid Level 2.20 mmol/L (0.4-2.0) Phosphorus Level 2.3 MG/DL (2.5-4.9) Magnesium Level 2.1 MG/DL (1.8-2.4) Total Bilirubin 2.0 MG/DL (0.2-1.0) Direct Bilirubin 1.5 MG/DL (0.0-0.3) Aspartate Amino Transf (AST/SGOT) 357 U/L (15-37) Alanine Aminotransferase (ALT/SGPT) 98 U/L (12-78) Alkaline Phosphatase 1864 U/L (46-116) Total Protein 4.6 G/DL (6.4-8.2) Albumin 1.2 G/DL (3.4-5.0) Globulin 3.4 g/dL Albumin/Globulin Ratio 0.4 (1.0-2.7) Cortisol AM Sample 22.3 UG/DL Test 05/05/19 10:00 05/06/19 05:00 Lactic Acid Level 2.50 mmol/L (0.66-2.22) White Blood Count 23.0 K/UL (4.8-10.8) Red Blood Count 4.14 M/UL (4.70-6.10) Hemoglobin 11.1 G/DL (14.2-18.0) Hematocrit 34.0 % (42.0-52.0) Mean Corpuscular Volume 82 FL (80-99) Mean Corpuscular Hemoglobin 26.8 PG (27.0-31.0) Mean Corpuscular Hemoglobin Concent 32.6 G/DL (32.0-36.0) Red Cell Distribution Width 15.2 % (11.6-14.8) Platelet Count 163 K/UL (150-450) Mean Platelet Volume 7.4 FL (6.5-10.1) Neutrophils (%) (Auto) % (45.0-75.0) Lymphocytes (%) (Auto) % (20.0-45.0) Monocytes (%) (Auto) % (1.0-10.0) Eosinophils (%) (Auto) % (0.0-3.0) Basophils (%) (Auto) % (0.0-2.0) Sodium Level 152 MMOL/L (136-145) Potassium Level 4.1 MMOL/L (3.5-5.1) Chloride Level 122 MMOL/L (98-107) Carbon Dioxide Level 19 MMOL/L (21-32) Anion Gap 11 mmol/L (5-15) Blood Urea Nitrogen 28 mg/dL (7-18) Creatinine 1.2 MG/DL (0.55-1.30) Estimat Glomerular Filtration Rate mL/min (>60) Glucose Level 80 MG/DL (74-106) Calcium Level 7.6 MG/DL (8.5-10.1) Height (Feet): 5 Height (Inches): 10.00 Weight (Pounds): 165 Objective Physical Exam General Appearance: A+O x1, NAD HEENT: normocephalic, atraumatic Neck: non-tender, normal alignment Respiratory/Chest: chest wall non-tender, lungs clear Cardiovascular/Chest: normal peripheral pulses, normal rate Abdomen: normal bowel sounds, non tender ++gtube Ext: no cce Miguel Ludwig MD May 06, 2019 07:03
--- NOTE | 2019-05-06 07:05 | NUR ---
HAND-OFF: Report given to ELSA Orr.Patient on comfort measure only.
--- NOTE | 2019-05-06 07:07 | NUR ---
NURSE NOTES: Report received from ELSA Gonzalez.
--- NOTE | 2019-05-06 07:38 | NUR ---
NURSE NOTES: Patient was received asleep, non verbali responsive, response to deep pain.Skin dry and cold and patient appear very thin.Afebrile and on venturi mask at 45%.GT feeding discontinue with IVF.Patient in declining stage and now on comfort care for metastasize esophageal cancer to liver.No facial grimacing nor apparent signs of pain or discomfort.GT placement checked and in place. No residual at this time.HOB elevated at 35 degree to prevent risks for aspiration.Abdomen soft and non distended.Turned and repositioned for skin management. Patient skin was noted to degrade due to medical condition and terminal illness.Linen clean and dry.Mouth care done and suctioned a large amount secretion thin in texture.Side rails 3/4 up to enhance repositioning and for safety.bed in low position and locked.Patient kept clean, dry and comfortable.Call light within easy reach.Will continue close monitoring.
[2019-05-06] MEDS: Tamsulosin 0.4mg cap ORAL SCH (08:33)
--- NOTE | 2019-05-06 10:38 | Pulmonology Progress Note ---
Assessment/Plan Problems: (1) Comfort measures only status (2) Primary cancer of esophagus with metastasis to other site (3) LLL pneumonia (4) UGIB (upper gastrointestinal bleed) (5) At high risk for aspiration (6) Benign prostatic hyperplasia (7) Chronic renal insufficiency (8) History of hypertension (9) Normal pressure hydrocephalus (10) Elevated LFTs (11) Severe malnutrition Assessment/Plan all reviewed off feeding off IV fluids symptomatic treatment pain management aspiration precaution consider hospice and end of life care Subjective ROS Limited/Unobtainable: No Constitutional: Reports: no symptoms HEENT: Repors: no symptoms Respiratory: Reports: no symptoms Allergies: Coded Allergies: BENAZEPRIL (Verified Allergy, Unknown, 04/29/19) PENICILLINS (Verified Allergy, Unknown, 04/29/19) TERAZOSIN (Verified Allergy, Unknown, 04/29/19) Objective Last 24 Hour Vital Signs Date Time Temp Pulse Resp B/P (MAP) Pulse Ox O2 Delivery O2 Flow Rate FiO2 05/06/19 10:00 94 25 85/56 (66) 94 05/06/19 09:00 93 21 100/57 (71) 94 05/06/19 08:00 98.5 101 36 87/56 (66) 94 05/06/19 08:00 100 05/06/19 08:00 Venturi Mask 8.0 05/06/19 07:00 92 21 93/59 (70) 96 05/06/19 06:57 100 Venturi Mask 10.0 45 05/06/19 06:00 97 21 78/52 (61) 94 05/06/19 05:00 97.9 95 24 88/53 (65) 95 05/06/19 04:00 Venturi Mask 8.0 05/06/19 04:00 97 25 102/70 (81) 97 05/06/19 04:00 92 05/06/19 03:11 92 05/06/19 03:00 97 25 84/58 (67) 88 05/06/19 02:00 107 31 113/79 (90) 88 05/06/19 01:00 103 30 95/70 (78) 92 05/06/19 00:00 Venturi Mask 8.0 05/06/19 00:00 93 14 89/65 (73) 98 05/05/19 23:41 110 05/05/19 23:00 98.1 99 28 115/80 (92) 86 05/05/19 22:00 94 25 98/70 (79) 98 05/05/19 21:00 96 41 97/69 (78) 99 05/05/19 20:00 Venturi Mask 8.0 05/05/19 20:00 98.5 99 29 91/67 (75) 98 05/05/19 19:46 92 05/05/19 19:00 97 24 97/69 (78) 99 05/05/19 18:58 100 Venturi Mask 10.0 45 05/05/19 18:00 99 23 106/72 (83) 98 05/05/19 17:00 102 27 101/74 (83) 99 05/05/19 16:00 Venturi Mask 8.0 05/05/19 16:00 97 05/05/19 16:00 98.4 98 24 110/87 (95) 99 05/05/19 15:55 98 19 106/69 (81) 36 05/05/19 15:00 97 22 98/73 (81) 100 05/05/19 14:00 99 25 104/75 (85) 97 05/05/19 13:00 98 19 106/69 (81) 36 05/05/19 12:00 89 05/05/19 12:00 Venturi Mask 8.0 05/05/19 12:00 98.6 94 22 85/62 (70) 94 05/05/19 11:00 73 19 96/61 (73) 99 Intake and Output 05/05/19 05/06/19 19:00 07:00 Intake Total 1995 ml 400 ml Output Total 503 ml 360 ml Balance 1492 ml 40 ml Intake Free Water 400 ml IV Total 1975 ml Tube Feeding 20 ml Output Urine Total 503 ml 360 ml General Appearance: cachetic HEENT: normocephalic, atraumatic Respiratory/Chest: chest wall non-tender, lungs clear Cardiovascular: normal peripheral pulses, regularly irregular Abdomen: normal bowel sounds, no organomegaly Genitourinary: normal external genitalia Extremities: no cyanosis Skin: no lesions Microbiology Date/Time Source Procedure Growth Status 05/04/19 22:55 Blood Blood Culture - Preliminary NO GROWTH AFTER 24 HOURS Resulted 05/04/19 22:50 Blood Blood Culture - Preliminary NO GROWTH AFTER 24 HOURS Resulted 05/05/19 05:00 Sputum Gram Stain - Final Resulted 05/05/19 05:00 Sputum Sputum Culture - Preliminary NORMAL UPPER RESPIRATORY COLLEEN AT 24 ... Resulted 05/05/19 05:00 Urine,Clean Catch Urine Culture - Preliminary NO GROWTH AFTER 24 HOURS Resulted Laboratory Tests 05/06/19 05:00: White Blood Count 23.0*H, Red Blood Count 4.14L, Hemoglobin 11.1L, Hematocrit 34.0L, Mean Corpuscular Volume 82, Mean Corpuscular Hemoglobin 26.8L, Mean Corpuscular Hemoglobin Concent 32.6, Red Cell Distribution Width 15.2H, Platelet Count 163, Mean Platelet Volume 7.4, Neutrophils (%) (Auto) , Lymphocytes (%) (Auto) , Monocytes (%) (Auto) , Eosinophils (%) (Auto) , Basophils (%) (Auto) , Differential Total Cells Counted 100, Neutrophils % ( Manual) 85H, Lymphocytes % (Manual) 3L, Monocytes % (Manual) 8, Eosinophils % ( Manual) 0, Basophils % (Manual) 0, Metamyelocytes % 1H, Myelocytes % 1H, Band Neutrophils 2, Platelet Estimate Adequate, Platelet Morphology Normal, Anisocytosis 1+, Sodium Level 152H, Potassium Level 4.1, Chloride Level 122H, Carbon Dioxide Level 19L, Anion Gap 11, Blood Urea Nitrogen 28H, Creatinine 1.2 , Estimat Glomerular Filtration Rate , Glucose Level 80, Calcium Level 7.6L Current Medications Medications (Trade) Dose Ordered Sig/Eric Route PRN Reason Start Time Stop Time Status Last Admin Dose Admin Acetaminophen (Tylenol) 650 mg Q4H PRN ORAL fever 05/05/19 00:30 05/29/19 04:29 Atropine Sulfate (Atropine Opth Kemi) 1 drop Q2H PRN SL excessive secretions 05/05/19 10:45 06/04/19 10:44 Finasteride (Proscar) 5 mg DAILY ORAL 05/05/19 09:00 05/30/19 08:59 05/06/19 08:33 Glycopyrrolate (Robinul) 0.1 mg Q6H PRN IV excessive secretions 05/05/19 10:45 06/04/19 10:44 Haloperidol (Haldol) 1 mg Q30M PRN ORAL Agitation 05/05/19 10:45 06/04/19 10:44 Morphine Sulfate (Morphine 10mg/ 5ml Oral Soln) 5 mg Q3H PRN ORAL Breakthrough Pain 05/05/19 10:45 05/12/19 10:44 05/06/19 02:32 Tamsulosin HCl (Flomax) 0.4 mg DAILY ORAL 05/05/19 09:00 05/30/19 08:59 05/06/19 08:33 Octavia Morse MD May 06, 2019 10:38
--- NOTE | 2019-05-06 10:40 | NUR ---
NURSE NOTES: Patient turned and repositioned.Seen by Dr Morse with new order to transfer to med surg and one time 10mg IVP Morphine than start patient on Morphine drip for comfort. Patient comfortable at this time with no apparent acute distress. Divya Holloway and Nithin Sands made aware
[2019-05-06] MEDS ORDERED: Morphine Sulfate 10mg/ml Inj IVP SCH (11:00)
--- NOTE | 2019-05-06 11:20 | NUR ---
NURSE NOTES: Patient remains in declining stage BP 77/53 HR 107 O2Sat 74 RR 20.Morphine 10mg IVP given per Dr Morse order. No signs and symptoms of discomfort noted at this time.Kept clean dry and comfortable.
--- NOTE | 2019-05-06 11:26 | Infectious Diseases Prog Note ---
Assessment/Plan Assessment/Plan The patient is a 74-year-old male with, Leukocytosis, increased Probable aspiration pneumonia and UTI -05/02 sp cx normal resp ivelisse -04/29 Ucx GNR No fever Status post coffee-grounds emesis. Probable liver mets. EGD showed esophageal mass ? esophageal cancer. PLAN: 1. Patient was made comfort care and antibiotics were discontinued -05/05 SP Ertapenem #5, IV Vancomycin #3 ID WILL SIGN OFF NOW. PLEASE CALL BACK IF NEEDED. Subjective Allergies: Coded Allergies: BENAZEPRIL (Verified Allergy, Unknown, 04/29/19) PENICILLINS (Verified Allergy, Unknown, 04/29/19) TERAZOSIN (Verified Allergy, Unknown, 04/29/19) Subjective patient was placed on comfort care measures only and antibiotics were discontinued Objective Vital Signs Last 24 Hour Vital Signs Date Time Temp Pulse Resp B/P (MAP) Pulse Ox O2 Delivery O2 Flow Rate FiO2 05/06/19 10:00 94 25 85/56 (66) 94 05/06/19 09:00 93 21 100/57 (71) 94 05/06/19 08:00 98.5 101 36 87/56 (66) 94 05/06/19 08:00 100 05/06/19 08:00 Venturi Mask 8.0 05/06/19 07:00 92 21 93/59 (70) 96 05/06/19 06:57 100 Venturi Mask 10.0 45 05/06/19 06:00 97 21 78/52 (61) 94 05/06/19 05:00 97.9 95 24 88/53 (65) 95 05/06/19 04:00 Venturi Mask 8.0 05/06/19 04:00 97 25 102/70 (81) 97 05/06/19 04:00 92 05/06/19 03:11 92 05/06/19 03:00 97 25 84/58 (67) 88 05/06/19 02:00 107 31 113/79 (90) 88 05/06/19 01:00 103 30 95/70 (78) 92 05/06/19 00:00 Venturi Mask 8.0 05/06/19 00:00 93 14 89/65 (73) 98 05/05/19 23:41 110 05/05/19 23:00 98.1 99 28 115/80 (92) 86 05/05/19 22:00 94 25 98/70 (79) 98 05/05/19 21:00 96 41 97/69 (78) 99 05/05/19 20:00 Venturi Mask 8.0 05/05/19 20:00 98.5 99 29 91/67 (75) 98 05/05/19 19:46 92 05/05/19 19:00 97 24 97/69 (78) 99 05/05/19 18:58 100 Venturi Mask 10.0 45 05/05/19 18:00 99 23 106/72 (83) 98 05/05/19 17:00 102 27 101/74 (83) 99 05/05/19 16:00 Venturi Mask 8.0 05/05/19 16:00 97 05/05/19 16:00 98.4 98 24 110/87 (95) 99 05/05/19 15:55 98 19 106/69 (81) 36 05/05/19 15:00 97 22 98/73 (81) 100 05/05/19 14:00 99 25 104/75 (85) 97 05/05/19 13:00 98 19 106/69 (81) 36 05/05/19 12:00 89 05/05/19 12:00 Venturi Mask 8.0 05/05/19 12:00 98.6 94 22 85/62 (70) 94 Height (Feet): 5 Height (Inches): 10.00 Weight (Pounds): 165 Objective HEENT: Mild pale conjunctivae. No icterus. CHEST: CTAB HEART: S1 and S2. RRR ABDOMEN: Soft. G-tube in place. Microbiology Date/Time Source Procedure Growth Status 05/04/19 22:55 Blood Blood Culture - Preliminary NO GROWTH AFTER 24 HOURS Resulted 05/04/19 22:50 Blood Blood Culture - Preliminary NO GROWTH AFTER 24 HOURS Resulted 05/05/19 05:00 Sputum Gram Stain - Final Resulted 05/05/19 05:00 Sputum Sputum Culture - Preliminary NORMAL UPPER RESPIRATORY IVELISSE AT 24 ... Resulted 05/05/19 05:00 Urine,Clean Catch Urine Culture - Preliminary NO GROWTH AFTER 24 HOURS Resulted Laboratory Tests Test 05/06/19 05:00 White Blood Count 23.0 K/UL (4.8-10.8) *H Red Blood Count 4.14 M/UL (4.70-6.10) L Hemoglobin 11.1 G/DL (14.2-18.0) L Hematocrit 34.0 % (42.0-52.0) L Mean Corpuscular Volume 82 FL (80-99) Mean Corpuscular Hemoglobin 26.8 PG (27.0-31.0) L Mean Corpuscular Hemoglobin Concent 32.6 G/DL (32.0-36.0) Red Cell Distribution Width 15.2 % (11.6-14.8) H Platelet Count 163 K/UL (150-450) Mean Platelet Volume 7.4 FL (6.5-10.1) Neutrophils (%) (Auto) % (45.0-75.0) Lymphocytes (%) (Auto) % (20.0-45.0) Monocytes (%) (Auto) % (1.0-10.0) Eosinophils (%) (Auto) % (0.0-3.0) Basophils (%) (Auto) % (0.0-2.0) Differential Total Cells Counted 100 Neutrophils % (Manual) 85 % (45-75) H Lymphocytes % (Manual) 3 % (20-45) L Monocytes % (Manual) 8 % (1-10) Eosinophils % (Manual) 0 % (0-3) Basophils % (Manual) 0 % (0-2) Metamyelocytes % 1 % (0-0) H Myelocytes % 1 % (0-0) H Band Neutrophils 2 % (0-8) Platelet Estimate Adequate Platelet Morphology Normal Anisocytosis 1+ Sodium Level 152 MMOL/L (136-145) H Potassium Level 4.1 MMOL/L (3.5-5.1) Chloride Level 122 MMOL/L (98-107) H Carbon Dioxide Level 19 MMOL/L (21-32) L Anion Gap 11 mmol/L (5-15) Blood Urea Nitrogen 28 mg/dL (7-18) H Creatinine 1.2 MG/DL (0.55-1.30) Estimat Glomerular Filtration Rate mL/min (>60) Glucose Level 80 MG/DL (74-106) Calcium Level 7.6 MG/DL (8.5-10.1) L Current Medications Medications (Trade) Dose Ordered Sig/Eric Route PRN Reason Start Time Stop Time Status Last Admin Dose Admin Acetaminophen (Tylenol) 650 mg Q4H PRN ORAL fever 05/05/19 00:30 05/29/19 04:29 Atropine Sulfate (Atropine Opth Kemi) 1 drop Q2H PRN SL excessive secretions 05/05/19 10:45 06/04/19 10:44 Finasteride (Proscar) 5 mg DAILY ORAL 05/05/19 09:00 05/30/19 08:59 05/06/19 08:33 Glycopyrrolate (Robinul) 0.1 mg Q6H PRN IV excessive secretions 05/05/19 10:45 06/04/19 10:44 Haloperidol (Haldol) 1 mg Q30M PRN ORAL Agitation 05/05/19 10:45 06/04/19 10:44 Morphine Sulfate 30 ml @ 5 mls/hr [employer] Protocol PRN IV For Pain 05/06/19 12:00 05/08/19 11:59 Morphine Sulfate (Morphine Sulfate) 4 mg Q1H PRN IVP breakthru pain dyspnea/ RR>20 05/06/19 12:00 05/13/19 11:59 Morphine Sulfate (Morphine Sulfate) 10 mg ONCE IVP 05/06/19 11:00 05/06/19 12:00 05/06/19 11:15 Tamsulosin HCl (Flomax) 0.4 mg DAILY ORAL 05/05/19 09:00 05/30/19 08:59 05/06/19 08:33 Rebecca Munoz M.D. May 06, 2019 11:26
--- NOTE | 2019-05-06 11:38 | Diagnostic Imaging Report ---
EXAM: CT Chest With Intravenous Contrast CLINICAL HISTORY: Pain. Known esophageal cancer. TECHNIQUE: Axial computed tomography images of the chest with intravenous contrast. CTDI is 348.2 mGy and DLP is 1913.3 mGy-cm. One or more of the following dose reduction techniques were used: automated exposure control, adjustment of the mA and or kV according to patient size, use of iterative reconstruction technique. COMPARISON: No relevant prior studies available. FINDINGS: There is thoracic aortic ectasia in the ascending segment measuring 4 cm in maximum diameter. No dissection or other acute aortic syndrome. There is no pulmonary embolism. The heart is enlarged. There is extensive coronary atherosclerosis. There are small bilateral pleural effusions causing compressive atelectasis. There are also patchy bilateral groundglass infiltrates suggesting pneumonitis. Multiple pulmonary nodules. The largest of these in the left lower lobe measures 1 cm on series 4, image 56. These are highly suspicious for metastases given findings which will be discussed in the CT abdomen report. That report, which is included below, will also discuss esophageal and hiatal hernia findings. There is mild body wall edema mild gynecomastia. There is no acute fracture. IMPRESSION: Pulmonary nodules are concerning for metastases given abdominal findings discussed in report below. That report also discusses esophageal and hiatal hernia findings. Patchy groundglass parenchymal infiltrates are suspicious for pneumonia. Small pleural effusions with associated atelectasis. Cardiomegaly with CAD. EXAM: CT Abdomen and Pelvis With Intravenous Contrast CLINICAL HISTORY: PAIN TECHNIQUE: Axial computed tomography images of the abdomen and pelvis with intravenous contrast. CTDI is 340.2 mGy and DLP is 1913.3 mGy-cm. One or more of the following dose reduction techniques were used: automated exposure control, adjustment of the mA and or kV according to patient size, use of iterative reconstruction technique. COMPARISON: MRI of 04 30 19. FINDINGS: There is marked masslike thickening of the distal esophagus, consistent with known malignancy. There is also at least a small hiatal hernia. There is bulky gastrohepatic ligament adenopathy. Some of the nodes appear necrotic with largest node measuring up to 2.2 cm. More inferiorly there is retroperitoneal adenopathy, also consistent with tumor spread. Largest discrete node in the left para-aortic region measures 2.7 cm. Other more conglomerate adenopathy more superiorly in the left para-aortic and aortocaval regions. As noted on the MRI, there is diffuse metastatic infiltration of the liver. Difficult to measure lesions individually given the confluent nature of the metastases. No clear biliary dilation. No intraparenchymal or perihepatic hemorrhage. There is small volume ascites about the liver and elsewhere in the abdomen. This would explain pericholecystic fluid. There are bilateral renal cysts. Largest on the right measures 5.3 cm and displaces the kidney anteriorly. No hydronephrosis. There is marked prostatomegaly without pathologic bladder distention. The rectum is distended by inspissated stool. Correlate for impaction. There is presacral mesorectal edema, but this is nonspecific given free fluid and generalized edema anasarca elsewhere. Colonic diverticula, but fluid limits sensitivity for diverticulitis. No definite inflammation. Retained stool and contrast throughout the more proximal colon. No small bowel obstruction. Appropriately positioned gastrostomy tube. No free air. Extensive aortoiliac atherosclerosis. No abdominal aortic aneurysm. Degeneration of the lumbar spine, most pronounced at L5-S1. No acute fracture. No suspicious osseous lesion. IMPRESSION: Masslike thickening expansion of the distal esophagus, consistent with known malignancy. There is also likely a component of hiatal hernia. Diffuse metastatic infiltration of the liver. Bulky metastatic adenopathy. Fecal retention. Correlate for constipation impaction. Colonic diverticula. No clear diverticulitis, but limited due to small volume ascites and generalized edema anasarca. Other incidental findings as detailed above. <MYCVCSECTION> Critical Value Communications 05 03 19 16:06 Call Doctor Regarding Above results, called DR AGUIRRE on 05 03 16:06 (-07:00)
[2019-05-06] MEDS ORDERED: PCA Morphine 1mg/ml 30 ML IV PRN ×2 (12:00→14:30)
[2019-05-06] MEDS ORDERED: Morphine Sulfate 4mg/ml Inj (IV USE ONLY) IVP PRN ×2 (12:00→15:00)
--- NOTE | 2019-05-06 12:16 | NUR ---
NURSE NOTES: Helga from microbiology called to inform of a positive blood culture one bottle with gram positive cocci in clusters. Dominga informed of the new results and will inform Dr. Munoz.
--- NOTE | 2019-05-06 13:20 | NUR ---
NURSE NOTES: Patient Dr Munoz and made aware positive blood culture. Pt now on comfort care with Morphine drip to be started.Comfortable at this time with no apparent acute distress. Will continue to monitor. Awaiting for transfer to [address] [place] [address].
[2019-05-06] MEDS ORDERED: D5 1/2NS 1000ml IV ONE (14:30)
[2019-05-06] MEDS ORDERED: NS 275ml ONE (14:30)
[2019-05-06] MEDS ORDERED: 1/2 NS 1000ml IV ONE (14:30)
[2019-05-06] MEDS ORDERED: Tubing IV Secondary IV ONE (14:30)
--- NOTE | 2019-05-06 14:55 | NUR ---
HAND-OFF: Report given to ELSA Chawla. Patient transferred to [facility] room 404.
--- NOTE | 2019-05-06 15:15 | NUR ---
NURSE NOTES: Received patient on bed from ICU. Patient is obtunded, non verbal. With 2 IV lines on left hand and 1 IV line on left arm intact, no s/s of infiltration. On DNR/DNI. Kept on NPO. Oral suctioning done as needed. Comfort measures provided. Kept head of bed elevated. Bed locked in lowest position. Will continue plan of care.
--- NOTE | 2019-05-06 15:20 | NUR ---
NURSE NOTES: Skin assessment done.Noted edema on bilateral upper and lower ex's (+) 2. DTI on sacral. No redness on other pressure points, no skin break. No belongings. all the belongings were taken by family member. Patient on p200 mattress. Patient on comfort care. Will continue to monitor.
[2019-05-06] MEDS ORDERED: Glycopyrrolate 0.2mg/ml 1ml Vial IV PRN (15:30)
--- NOTE | 2019-05-06 16:20 | NUR ---
NURSE NOTES: MACHINE HEEL BUILDER was started. Will continue to monitor.
--- NOTE | 2019-05-06 17:12 | Internal Med Progress Note ---
Subjective Date of Service: May 06, 2019 Physician Name Betito Naylor Attending Physician Dionte Duenas MD Current Medications Medications (Trade) Dose Ordered Sig/Eric Route PRN Reason Start Time Stop Time Status Last Admin Dose Admin Acetaminophen (Tylenol) 650 mg Q4H PRN ORAL fever 05/06/19 15:00 05/29/19 14:59 Atropine Sulfate (Atropine Opth Kemi) 1 drop Q2H PRN SL excessive secretions 05/06/19 14:45 06/04/19 10:44 Finasteride (Proscar) 5 mg DAILY ORAL 05/07/19 09:00 05/30/19 08:59 Glycopyrrolate (Robinul) 0.1 mg Q6H PRN IV excessive secretions 05/06/19 15:30 06/04/19 15:29 Morphine Sulfate 30 ml @ 5 mls/hr ZIGZAG ELASTIC ATTACHER Protocol PRN IV For Pain 05/06/19 14:30 05/08/19 11:59 05/06/19 16:06 Morphine Sulfate (Morphine Sulfate) 4 mg Q1H PRN IVP breakthru pain dyspnea/ RR>20 05/06/19 15:00 05/13/19 11:59 Tamsulosin HCl (Flomax) 0.4 mg DAILY ORAL 05/07/19 09:00 05/30/19 08:59 Allergies: Coded Allergies: BENAZEPRIL (Verified Allergy, Unknown, 04/29/19) PENICILLINS (Verified Allergy, Unknown, 04/29/19) TERAZOSIN (Verified Allergy, Unknown, 04/29/19) ROS Limited/Unobtainable: Yes Subjective 74 YO M admitted with upper GI bleed. Now esophageal mass with liver masses. Cover for Int Med-Dr. Duenas. S/P endoscopy and PEG placement 05/02/19. Objective Last Vital Signs Date Time Temp Pulse Resp B/P (MAP) Pulse Ox O2 Delivery O2 Flow Rate FiO2 05/06/19 16:50 59 17 90 05/06/19 14:00 72/48 (56) 05/06/19 12:00 98.4 05/06/19 12:00 Venturi Mask 8.0 05/06/19 06:57 45 Laboratory Tests Test 05/06/19 05:00 White Blood Count 23.0 K/UL (4.8-10.8) *H Red Blood Count 4.14 M/UL (4.70-6.10) L Hemoglobin 11.1 G/DL (14.2-18.0) L Hematocrit 34.0 % (42.0-52.0) L Mean Corpuscular Volume 82 FL (80-99) Mean Corpuscular Hemoglobin 26.8 PG (27.0-31.0) L Mean Corpuscular Hemoglobin Concent 32.6 G/DL (32.0-36.0) Red Cell Distribution Width 15.2 % (11.6-14.8) H Platelet Count 163 K/UL (150-450) Mean Platelet Volume 7.4 FL (6.5-10.1) Neutrophils (%) (Auto) % (45.0-75.0) Lymphocytes (%) (Auto) % (20.0-45.0) Monocytes (%) (Auto) % (1.0-10.0) Eosinophils (%) (Auto) % (0.0-3.0) Basophils (%) (Auto) % (0.0-2.0) Differential Total Cells Counted 100 Neutrophils % (Manual) 85 % (45-75) H Lymphocytes % (Manual) 3 % (20-45) L Monocytes % (Manual) 8 % (1-10) Eosinophils % (Manual) 0 % (0-3) Basophils % (Manual) 0 % (0-2) Metamyelocytes % 1 % (0-0) H Myelocytes % 1 % (0-0) H Band Neutrophils 2 % (0-8) Platelet Estimate Adequate Platelet Morphology Normal Anisocytosis 1+ Sodium Level 152 MMOL/L (136-145) H Potassium Level 4.1 MMOL/L (3.5-5.1) Chloride Level 122 MMOL/L (98-107) H Carbon Dioxide Level 19 MMOL/L (21-32) L Anion Gap 11 mmol/L (5-15) Blood Urea Nitrogen 28 mg/dL (7-18) H Creatinine 1.2 MG/DL (0.55-1.30) Estimat Glomerular Filtration Rate mL/min (>60) Glucose Level 80 MG/DL (74-106) Calcium Level 7.6 MG/DL (8.5-10.1) L Microbiology Date/Time Source Procedure Growth Status 05/04/19 22:55 Blood Blood Culture - Preliminary Resulted 05/04/19 22:50 Blood Blood Culture - Preliminary NO GROWTH AFTER 24 HOURS Resulted 05/05/19 05:00 Sputum Gram Stain - Final Resulted 05/05/19 05:00 Sputum Sputum Culture - Preliminary NORMAL UPPER RESPIRATORY COLLEEN AT 24 ... Resulted 05/05/19 05:00 Urine,Clean Catch Urine Culture - Preliminary NO GROWTH AFTER 24 HOURS Resulted Intake and Output 05/05/19 05/06/19 19:00 07:00 Intake Total 1995 ml 400 ml Output Total 503 ml 360 ml Balance 1492 ml 40 ml Intake Free Water 400 ml IV Total 1975 ml Tube Feeding 20 ml Output Urine Total 503 ml 360 ml Objective PHYSICAL EXAMINATION: GENERAL: The patient is well-developed and well-nourished, thin-appearing white male, in no apparent distress. HEENT: Eyes, pupils are equal and responsive to light and accommodation. Extraocular movements are intact. NECK: Supple without lymphadenopathy. CHEST: venturi mask; Lungs with scattered wheezes and bibasilar rales. CARDIOVASCULAR: Regular rate. S1 and S2 normal without murmurs, rubs, or gallops. ABDOMEN: Soft, nontender, nondistended. Positive bowel sounds. No evidence of hepatosplenomegaly. Currently, no rebound or guarding noted. EXTREMITIES: Negative for clubbing, cyanosis, or edema. RECTAL: Not performed. GENITALIA: Not performed. NEUROLOGIC: Cranial nerves II through XII are grossly intact without focal deficits. Motor strength is 5/5 bilaterally. Deep tendon reflexes are 2+ plantar. Assessment/Plan Assessment/Plan ASSESSMENT: This is a 74-year-old male. 1. Upper gastrointestinal hemorrhage. 2. Elevated liver enzymes. 3. Liver masses. 4. Gastroesophageal reflux disease. 5. Hypercholesterolemia. 6. Hypertension. 7. Benign prostatic hypertrophy. 8. New right Pneumonia 9. esophageal mass with Liver masses 10. dysphagia TREATMENT: 1. Elevated liver enzymes/upper gastrointestinal hemorrhage. Gastroenterology consultation obtained with Dr. Martínez Olsen. An endoscopy has been scheduled. We will follow recommendations of Gastroenterology. Elevated liver enzymes may be secondary to liver masses secondary to metastatic disease. 2. Liver masses. See discussion above. 3. Gastroesophageal reflux disease. The patient has been placed on Protonix. 4. Hypercholesterolemia. Continue atorvastatin. 5. Hypertension. The patient is currently hypotensive due to hypovolemia. 6. Benign prostatic hypertrophy. Continue Flomax as above. 7. ABX=ertapenem and vanco 8. S/P endoscopy and PEG 05/02/19. 9. 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 Oncology=Dr Ludwig 11.. [facility] Betito Naylor MD May 06, 2019 17:12
[2019-05-06] MEDS ORDERED: Rate Change Narcotic Drip MISC PRN (18:30)
[2019-05-06] MEDS ORDERED: Narcotic Shift Volume MISC SCH (19:00)
--- NOTE | 2019-05-06 19:15 | NUR ---
NURSE NOTES: RECEIVED PT FROM ELSA [place]. PT IS ASLEEP, AAOX0, ON COMFORT CARE, PULSES ARE WEAK, O2 AT 87%. MORPHINE FARM ADVISOR NOTED AT 11MG REMAINING. SACRAL WOUND DRESSING IS INTACT AND DRY. COMDOM CATH IS INTACT, DRAINING WELL. G-TUBE IS CLAMPED. IV ON LEFT HAND IS INTACT AND PATENT. BED IS LOCKED AND LOW, BED ALARMS ACTIVE, SIDE RAILS UP X2, AND CALL LIGHT IS WITHIN REACH. WILL CONTINUE TO MONITOR.
--- NOTE | 2019-05-06 19:23 | NUR ---
HAND-OFF: Report given to Effie.
--- NOTE | 2019-05-06 19:25 | NUR ---
NURSE NOTES: endorsed to the next shift to monitor patient's condition and inform family as needed.
--- NOTE | 2019-05-06 19:50 | NUR ---
PRONOUNCEMENT: No Code. Called to pronounce patient. Absence of spontaneous respirations, no cardiac or breath sounds on auscultation. Pupils fixed and dilated. No carotid pulse or chest movement. Patient at 1950. DR Duenas notified PER [place] Pritchard. Family, friend Divya was notified at 2019, several messages left for brother but no call back.
--- NOTE | 2019-05-06 20:00 | NUR ---
NURSE NOTES: PT . CHARGE NURSE AND EDI CONSULTANT AWARE. CALLED AND LEFT A MESSAGE WITH DR. MARIANO. CALLED [facility] AND SPOKE WITH JASIEL ADAIR, REFERENCE #[id number].
[2019-05-07] MEDS ORDERED: Tamsulosin 0.4mg cap ORAL SCH (09:00)
--- NOTE | 2019-05-07 13:06 | Discharge Summary ---
Discharge Summary Discharge Summary _ SUMMARY DATE OF ADMISSION: 04/29/2019 DATE OF EXPIRATION : 05/06/2019 REASON FOR ADMISSION: 74 years old male, resident of [facility] facility, with past medical history of hypertension, presented to emergency room for evaluation. Patient apparently had 3 episodes of coffee-ground emesis prior to presentation to ED. Patient was also hypotensive. Patient reported feeling weak. Patient was recently discharged from the [facility] to this facility. He denied fever , chills . He denied chest pain and shortness of breath. He denied abdominal pain. No blood in stool. Upon evaluation vital signs were stable. Blood pressure was on the low side . Laboratory work-up revealed lactic acid 2.9. WBC 14.7. Hemoglobin 12.9, hematocrit 39.2. Platelet count 238. Stable electrolytes. BUN 37, creatinine 1.5. Total bilirubin 1.9 , direct bilirubin 1.4. AST 291 , ALT 102 , alkaline phosphatase 1628. Lipase 178 Troponin - 0.001 . Albumin 1.6. EKG revealed sinus rhythm, no acute ischemic changes . Chest x-ray revealed infiltrates versus atelectasis left lung base. Urinalysis revealed possible evidence of UTI. Septic work-up initiated. Patient received fluid challenge, blood pressure slightly improved with IV fluids in Trendelenburg position. Patient pancultured , started on empiric antibiotic and admitted for further management. CONSULTANTS: pulmonary Dr. Morse ID specialist Dr. Noble GI specialist Dr. Olsen video coordinator/oncologist Dr. Ludwig [facility] COURSE: Patient admitted and started on IV fluids and empiric antibiotics. ID specialist followed. Blood cultures were negative. Urine culture revealed gram-negative rods with colony count <10K. Sputum culture was negative. Patient demonstrated steadily increased leukocytosis. Antibiotic provided as per ID recommendation. Venous duplex bilateral lower extremity revealed no evidence of acute DVT. Renal ultrasound demonstrated evidence of normal bilateral kidney echogenicity. GI specialist seen and evaluated patient. Hemoglobin and hematocrit were closely monitored his goal to keep hemoglobin above 7 . Hemoglobin and hematocrit remained at the baseline . Anemia work-up was consistent with anemia of chronic disease. Abdominal ultrasound revealed multiple bilateral renal cysts, abnormal liver with multiple echogenic foci infiltrative disease or new metastatic neoplasm should be considered. Abdominal MRI demonstrated multiply lesions in the liver, consistent with metastatic neoplasm . Trace ascites noted along with bilateral pleural effusion . Video swallow evaluation revealed high aspiration risk. Speech therapist recommended non oral feeing, but consider oral trials for quality of life with certain texture and strict aspiration precautions. Patient subsequently undergone upper endoscopy with biopsy and PEG placement . During the procedure was found large esophageal mass , highly suspicious for adenocarcinoma , status post biopsy, multiply gastric polyps noted as well. PEG was successfully placed. After procedure abdominal binder was applied ; head of bed was elevated at all times, G-tube site care provided. Patient later started on tube feeding as per advanced registered nurse recommendation. Biopsy of the esophageal mass revealed squamous cell carcinoma , well to moderately differentiated. After EGD patient undergone CT scan of the chest , abdomen and pelvis, which revealed pulmonary nodules, concerning for metastasis given abdominal findings. Ground glass parenchymal infiltrate, suspicious for pneumonia. Small pleural effusion with associated atelectasis. Masslike thickening of expansion of the distal esophagus , consistent with the known malignancy. Also likely component of hiatal hernia. Diffuse metastatic infiltration of the liver. Bulky metastatic adenopathy. Colicky retention correlate for constipation. Colonic diverticula ; no clear diverticulitis. Supplemental oxygen titrated to keep pulse oximetry above 92%. Pulmonary toilet with bronchodilator provided as needed. Patient was followed-up with chest x-ray. Patient was on Venturi mask. CODE STATUS was changed to DNR/DNI on to comfort care only after discussion with his brother and reviewing goals of care and poor prognosis. Hospice placement was pending. Tube feeding was placed on hold. Leukocytosis on the day of expiration mecca to 23. LFT and bilirubin trended up. Renal parameters and electrolytes were closely monitored, electrolytes corrected as needed , and nephrotoxic were avoided. Creatinine from 1.5 down to 1.2 Patient condition rapidly deteriorated , and he was pronounced at 19:50 on 05/06. 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 I was not involved in the patient's management. Oneyda Crouch NP May 07, 2019 13:06
== END 2019-05-06 19:50 | disposition expired | DRG 374 ==
LOC: EDBD 19:35 → EMR 20:33 → 2E 20:45 → EDBEDREQ 21:15 → EDBEDREQSVC 21:35 → 2W 21:38 → 2E 04-30 21:43 → 4E 05-02 04:49 → ICU 05-04 21:00 → 4E 05-06 15:09
PROC: 0DB58ZX Excision of Esophagus, Via Natural or Artificial Opening Endoscopic, Diagnostic (ICD-10-PCS; principal; 2019-05-02 09:57)
PROC: 0DH63UZ Insertion of Feeding Device into Stomach, Percutaneous Approach (ICD-10-PCS; principal; 2019-05-02 09:57)
DX: C15.9 Malignant neoplasm of esophagus, unspecified (principal); E43 Unspecified severe protein-calorie malnutrition; J69.0 Pneumonitis due to inhalation of food and vomit; G91.2 (Idiopathic) normal pressure hydrocephalus; C78.7 Secondary malignant neoplasm of liver and intrahepatic bile duct; N39.0 Urinary tract infection, site not specified; Z51.5 Encounter for palliative care; Z66 Do not resuscitate; N18.9 Chronic kidney disease, unspecified; N40.0 Benign prostatic hyperplasia without lower urinary tract symptoms; R13.10 Dysphagia, unspecified; Z88.0 Allergy status to penicillin; Z88.8 Allergy status to other drugs, medicaments and biological substances; I12.9 Hypertensive chronic kidney disease with stage 1 through stage 4 chronic kidney disease, or unspecified chronic kidney disease; Z86.73 Personal history of transient ischemic attack (TIA), and cerebral infarction without residual deficits; E78.00 Pure hypercholesterolemia, unspecified; K21.9 Gastro-esophageal reflux disease without esophagitis; R62.7 Adult failure to thrive; D50.0 Iron deficiency anemia secondary to blood loss (chronic); D63.8 Anemia in other chronic diseases classified elsewhere; I95.9 Hypotension, unspecified
CPT/HCPCS: 36415; 36600; 71045; 71260; 74177; 74181; 74230; 76700; 76770; 80048; 80053; 81003; 82043; 82150; 82248; 82378; 82533; 82550; 82607; 82746; 82803; 82962; 83540; 83550; 83605; 83615; 83690; 83735; 83935; 84100; 84300; 84484; 84550; 85007; 85025; 85044; 85060; 85610; 85651; 85730; 86850; 86900; 86901; 87040; 87070; 87081; 87086; 87181; 87205; 89050; 93005; 93970; 94003; 94150; 96361; 96365; 96372; 96375; 99285; 99291; J2405